=== PATIENT | male | born 1940 | race Caucasian/White ===

== ENCOUNTER 2020-09-28 23:37 | Inpatient (IN) | payer MEDICARE ==
[2020-09-29] MEDS ORDERED: NITROGLYCERIN SL TABS 0.4 MG TAB SUBLINGUAL PRN ×2 (00:01→09:39)
[2020-09-29] MEDS ORDERED: MORPHINE SULFATE 4 MG/ML SYRINGE IV PRN (00:01)
--- NOTE | 2020-09-29 00:12 | ED ---
Chest Pain HPI - General Chief Complaint: Chest Pain Stated Complaint: Chest Pain Time Seen by Provider: 09/28/20 23:43 Source: patient, EMS Mode of arrival: EMS - History of Present Illness Initial Comments: This patient is a 79-year-old man with history of previous ID as well as CABG (14 years ago), who arrives here as a transfer from [facility]. He had gone there tonight approximately 7:30 PM after he had 20-30 minutes of chest pain that came on while he was mowing his lawn. The patient also had diaphoresis and dyspnea. The patient had cardiac workup there that did reveal troponin of 0.142. The patient was started on heparin and transferred here. There was also question of whether they were seeing a pneumonia chest x-ray and patient did receive dose of Rocephin for that. Patient denies cough. Onset of symptoms. No fever or chills noted. MD Complaint: chest pain Onset/Timin -: minutes(s) Onset: during exertion Pain Location: left chest Severity: moderate Quality: aching Consistency: intermittent, now resolved Improves With: nitroglycerin, rest Worsens With: exertion Anginal Symptoms: diaphoresis, dyspnea Treatments Prior to Arrival: aspirin, nitroglycerin, oxygen, other - Related Data Home Medications Medication Instructions Recorded Confirmed Enalapril Maleate 2.5 mg PO DAILY 01/04/14 09/29/20 atenoloL [Atenolol] 25 mg PO DAILY 01/04/14 09/29/20 Folic Acid 0.8 mg PO DAILY 09/29/20 09/29/20 Furosemide [Lasix] 10 mg PO DAILY 09/29/20 09/29/20 HYDROcodone/APAP 5-325MG [[place] 1 tab PO BID PRN 09/29/20 09/29/20 5-325] Latanoprost/Pf [Latanoprost 0.005% 1 drop BOTH EYES HS 09/29/20 09/29/20 Eye Drop] Multivitamins, Thera [Multivitamin 1 tab PO DAILY 09/29/20 09/29/20 (formulary)] Pregabalin [Lyrica] 50 mg PO DAILY PRN 09/29/20 09/29/20 Previous Rx's Medication Instructions Recorded Phenytoin Sodium Extended 100 mg PO TID #90 cap 01/07/14 [Dilantin] Thiamine [Vitamin B-1] 100 mg PO DAILY@1200 #30 tablet 01/07/14 Aspirin 81 mg PO DAILY chew 09/30/20 Atorvastatin [Lipitor] 80 mg PO HS 30 Days #30 tab 10/01/20 Clopidogrel [Plavix] 75 mg PO DAILY 90 Days #90 tab 10/01/20 Nitroglycerin Sl Tabs [Nitrostat] 0.4 mg SUBLINGUAL Q5M PRN #30 tab 10/01/20 Allergies Allergy/AdvReac Type Severity Reaction Status Date / Time Penicillins Allergy Rash/Hives Verified 09/29/20 06:45 red dye Allergy Anaphylaxis Verified 09/29/20 06:45 shellfish derived Allergy Anaphylaxis Verified 09/29/20 06:45 Review of Systems ROS Statement: Those systems with pertinent positive or pertinent negative responses have been documented in the HPI. ROS Other: All systems not noted in ROS Statement are negative. Constitutional: Denies: fever, chills Respiratory: Reports: dyspnea. Denies: cough, wheezes, hemoptysis Cardiovascular: Reports: chest pain. Denies: palpitations, orthopnea, edema, syncope Gastrointestinal: Reports: nausea. Denies: abdominal pain, vomiting, diarrhea Genitourinary: Denies: dysuria, hematuria Musculoskeletal: Denies: back pain Skin: Denies: rash Neurological: Denies: headache, weakness, numbness EKG Findings - EKG Comments: EKG Findings:: Possible old lateral infarct. Possible old inferior infarct. 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 Absent: scleral icterus, conjunctival injection Neck exam: Present: normal inspection Respiratory exam: Present: normal lung sounds bilaterally. Absent: respiratory distress, wheezes, rales, rhonchi, stridor Cardiovascular Exam: Present: regular rate, normal rhythm, normal heart sounds. Absent: systolic murmur, diastolic murmur, rubs, gallop GI/Abdominal exam: Present: soft. Absent: distended, tenderness, guarding, rebound, rigid, mass Extremities exam: Present: normal inspection, normal capillary refill. Absent: pedal edema, calf tenderness Back exam: Present: normal inspection. Absent: CVA tenderness (R), CVA tenderness (L) Neurological exam: Present: alert Skin exam: Present: warm, dry, intact, normal color. Absent: rash Course Vital Signs 09/28/20 09/28/20 09/29/20 23:38 23:49 01:08 Temperature 97.9 F Pulse Rate 75 75 Pulse Rate [ 68 [employer] [facility] [employer] ] Respiratory 18 19 Rate Blood Pressure 136/82 109/72 Blood Pressure [Left Arm Supine] O2 Sat by Pulse 98 96 Oximetry 09/29/20 09/29/20 09/29/20 06:32 07:42 11:30 Temperature 97.6 F Pulse Rate 76 73 Pulse Rate [ 72 [facility] [employer] ] Respiratory 16 18 16 Rate Blood Pressure 131/66 140/80 Blood Pressure 143/77 [Left Arm Supine] O2 Sat by Pulse 98 97 95 Oximetry Critical Care Time Critical Care Time: Yes (30 minutes) Disposition Clinical Impression: Acute coronary syndrome Disposition: ADMITTED IP TO THIS [facility] Condition: Stable Is patient prescribed a controlled substance at d/c from ED?: No
[2020-09-29] MEDS: HEPARIN SOD,PORK IN 0.45% NACL 25,000 UNIT in 0.45% NACL 1 250ML.BAG IV SCH ×2 (00:58→22:04)
[2020-09-29] MEDS: SODIUM CHLORIDE 0.9% 1,000 ML IV SCH ×2 (02:01→13:15)
[2020-09-29] MEDS ORDERED: MAG HYDROX/AL HYDROX/SIMETH 30 ML, HYOSCYAMINE ELIXIR 10 ML, LIDOCAINE VISCOUS 2% 10 ML PO ONE ×3 (02:05)
[2020-09-29] MEDS ORDERED: HEPARIN SODIUM,PORCINE 2,500 UNIT in SODIUM CHLORIDE 0.9% 250 ML IRRIGATION PRN (07:00)
[2020-09-29] MEDS ORDERED: HEPARIN SODIUM,PORCINE 10,000 UNIT in SODIUM CHLORIDE 0.9% 1,000 ML IRRIGATION PRN (07:00)
[2020-09-29] MEDS: atenoloL 25 MG TAB PO SCH ×2 (07:35→13:35)
[2020-09-29] MEDS: lisinopriL 5 MG TAB PO SCH ×2 (07:35→13:35)
[2020-09-29 08:28] LABS: Basophils # (A) 0.1 k/uL (0-0.2); Basophils % (A) 1 %; Eosinophils # (A) 0.3 k/uL (0-0.7); Eosinophils % (A) 3 %; HCT 37.8 % (39.0-53.0); HGB 12.9 gm/dL (13.0-17.5); Lymphocytes # (A) 2.4 k/uL (1.0-4.8); Lymphocytes % (A) 20 %; MCH 29.9 pg (25.0-35.0); MCHC 34.2 g/dL (31.0-37.0); MCV 87.4 fL (80.0-100.0); Mean Platelet Volume 8.2; Monocytes # (A) 0.9 k/uL (0-1.0); Monocytes % (A) 7 %; Neutrophils # (A) 8.1 k/uL (1.3-7.7); Neutrophils % (A) 68 %; Platelet Count 309 k/uL (150-450); RBC 4.33 m/uL (4.30-5.90); WBC 11.9 k/uL (3.8-10.6)
[2020-09-29] MEDS: ASPIRIN 81 MG PO SCH (08:41)
[2020-09-29] MEDS: PHENYTOIN SODIUM EXTENDED 100 MG CAP PO SCH ×3 (08:43→21:13)
[2020-09-29] MEDS ORDERED: ASPIRIN 325 MG TAB PO SCH (09:00)
[2020-09-29 09:22] LABS: African American GFR (CKD) >90 (>60 ml/min/1.73 sqM); Anion Gap 6 mmol/L; Blood Urea Nitrogen 19 mg/dL (9-20); Calcium 8.9 mg/dL (8.4-10.2); Carbon Dioxide 24 mmol/L (22-30); Chloride 106 mmol/L (98-107); Glucose 118 mg/dL (74-99); Non-African American GFR(CKD) >90 (>60 ml/min/1.73 sqM); Potassium 4.5 mmol/L (3.5-5.1); Sodium 136 mmol/L (137-145)
[2020-09-29] MEDS ORDERED: ALPRAZolam 0.25 MG TAB PO PRN (09:39)
[2020-09-29] MEDS ORDERED: ASPIRIN 325 MG TAB PO STA (09:39)
[2020-09-29] MEDS ORDERED: ALPRAZolam 0.5 MG TAB PO PRN (09:39)
[2020-09-29] MEDS ORDERED: SODIUM CHLORIDE 0.9% 1,000 ML in EMPTY BAG 1 BAG IV ONE (09:39)
[2020-09-29] MEDS ORDERED: ATORVASTATIN 80 MG TAB PO STA (09:39)
[2020-09-29] MEDS ORDERED: LIDOCAINE 1% INJ 10MG/ML (20 ML MDV) ONE (09:57)
[2020-09-29] MEDS ORDERED: fentaNYL (PF) 50 MCG/ML 2 ML AMP ONE (09:57)
[2020-09-29] MEDS ORDERED: methylPREDNISolone SOD SUCCI 125 MG/2 ML VIAL ONE (10:01)
[2020-09-29] MEDS ORDERED: diphenhydrAMINE 50 MG/ML 1 ML VIAL ONE (10:01)
[2020-09-29] MEDS ORDERED: diphenhydrAMINE 50 MG/ML 1 ML VIAL IVP ONE (10:04)
[2020-09-29] MEDS: fentaNYL (PF) 50 MCG/ML 2 ML AMP IV ONE ×2 (10:05→10:43)
[2020-09-29] MEDS ORDERED: IV FLUID CONTINUATION 200 ML IV ONE (10:05)
[2020-09-29] MEDS ORDERED: methylPREDNISolone SOD SUCCI 125 MG/2 ML VIAL IV ONE (10:05)
[2020-09-29] MEDS ORDERED: LIDOCAINE 1% INJ 10MG/ML (20 ML MDV) SQ ONE (10:18)
[2020-09-29] MEDS: MIDAZOLAM 2 MG/2 ML VIAL IV ONE ×2 (10:21→10:43)
[2020-09-29] MEDS ORDERED: IOPAMIDOL-370 125ML BTL INJ ONE ×2 (10:42→11:07)
[2020-09-29] MEDS ORDERED: HEPARIN SODIUM 1,000 UN/ML (10ML VL) ONE (10:48)
[2020-09-29] MEDS ORDERED: niCARdipine 25 MG/10 ML VIAL ONE (10:48)
[2020-09-29] MEDS ORDERED: BIVALIRUDIN BOLUS 250 MG/50 ML IV ONE (10:50)
[2020-09-29] MEDS ORDERED: SODIUM CHLORIDE 0.9% IV ONE (10:59)
[2020-09-29] MEDS ORDERED: BIVALIRUDIN IV ONE (10:59)
[2020-09-29] MEDS ORDERED: CLOPIDOGREL 75 MG TAB PO ONE (11:07)
[2020-09-29] MEDS ORDERED: CLOPIDOGREL 75 MG TAB ONE (11:08)
[2020-09-29] MEDS ORDERED: PREGABALIN 50 MG CAP PO PRN (11:10)
[2020-09-29] MEDS ORDERED: HYDROcodone/APAP 5-325MG 1 EACH TAB PO PRN (11:10)
[2020-09-29] MEDS ORDERED: SODIUM CHLORIDE 0.9% 1,000 ML IV SCH (11:30)
--- NOTE | 2020-09-29 12:42 | P.CRDCN ---
History of Present Illness Consult date: 09/29/20 History of present illness: HISTORY OF PRESENT ILLNESS: This is a 79-year-old male with a past medical history significant for coronary artery disease with previous CABG x 3 (approximately 15 years ago), hypertension, and hyperlipidemia. Patient follows in the office with Dr. Dumont. We have been asked to see the patient in consultation for chest pain. Patient examined at the bedside. Patient states he was mowing the grass yesterday when he began having chest discomfort. He describes the pain as a burning sensation in the middle of his chest. He denies any radiation of the pain. He does report feeling short of breath with the pain. He reports feeling nauseated and having diaphoresis. Patient states he took some Tylenol for the discomfort. He states the pain was not going away so he presented to the hospital for further evaluation. At the time of examination, the patient denies chest pain. He does state he gets chest pain this morning with any exertion. EKG reveals sinus mechanism with no signs of acute ischemia Laboratory data: Troponin 0.142. 0.493. 0.609 Current home cardiac medications include Lasix 10 mg daily, atenolol 25 mg daily, enalapril 2.5 mg daily, simvastatin 40 mg daily Most recent echocardiogram obtained in 2020 revealed ejection fraction 45% Patient underwent Lexiscan stress test in 2019 which was negative for ischemia REVIEW OF SYSTEMS: At the time of my exam: CONSTITUTIONAL: Denies fever or chills. HEENT: Denies blurred vision, vision changes, or eye pain. Denies hemoptysis CARDIOVASCULAR: Denies chest pain. Denies orthopnea. Denies PND. Denies palpitations RESPIRATORY: Denies shortness of breath. GASTROINTESTINAL: Denies abdominal pain. Denies nausea or vomiting. HEMATOLOGIC: Denies bleeding disorders. GENITOURINARY: Denies any blood in urine. SKIN: Denies pruitis. Denies rash. PHYSICAL EXAM: VITAL SIGNS: Reviewed. GENERAL: Well-developed in no acute distress. HEENT: Head is normocephalic. Pupils are equal, round. Sclerae anicteric. Mucous membranes of the mouth are moist. Neck supple. No JVD or thyromegaly LUNGS: Respirations even and unlabored. Lungs essentially clear to auscultation bilaterally. HEART: Regular rate and rhythm. S1 and S2 heard. ABDOMEN: Soft. Nondistended. Nontender. EXTREMITIES: Normal range of motion. No clubbing or cyanosis. Peripheral pulses intact. Trace bilateral lower extremity edema NEUROLOGIC: Awake and alert. Oriented x 3. ASSESSMENT: Non-STEMI Coronary artery disease with previous CABG 3, 15 years ago Hypertension Hyperlipidemia PLAN: Obtain 2D echo to assess cardiac structure and function Resume home cardiac medications Continue IV heparin Obtain lipid panel NPO Patient to undergo cardiac cath today with Dr. Dumont Further recommendations pending patient course Nurse practitioner note has been reviewed by physician. Signing provider agrees with the documented findings, assessment, and plan of care. 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, etc) History of Any Multi-Drug Resistant Organisms: None Reported Past Surgical History: Back Surgery, Cholecystectomy, Coronary Bypass/CABG, Tonsillectomy Additional Past Surgical History / Comment(s): hernia repair, Past Anesthesia/Blood Transfusion Reactions: No Reported Reaction Past Psychological History: No Psychological Hx Reported Past Alcohol Use History: None Reported Past Drug Use History: None Reported Medications and Allergies Home Medications Medication Instructions Recorded Confirmed Type Enalapril Maleate 2.5 mg PO DAILY 01/04/14 09/29/20 History Simvastatin 40 mg PO HS 01/04/14 09/29/20 History atenoloL [Atenolol] 25 mg PO DAILY 01/04/14 09/29/20 History Phenytoin Sodium Extended 100 mg PO TID #90 cap 01/07/14 09/29/20 Rx [Dilantin] Thiamine [Vitamin B-1] 100 mg PO DAILY@1200 #30 tablet 01/07/14 09/29/20 Rx Folic Acid 0.8 mg PO DAILY 09/29/20 09/29/20 History Furosemide [Lasix] 10 mg PO DAILY 09/29/20 09/29/20 History HYDROcodone/APAP 5-325MG [[place] 1 tab PO BID PRN 09/29/20 09/29/20 History 5-325] Latanoprost/Pf [Latanoprost 0.005% 1 drop BOTH EYES HS 09/29/20 09/29/20 History Eye Drop] Multivitamins, Thera [Multivitamin 1 tab PO DAILY 09/29/20 09/29/20 History (formulary)] Pregabalin [Lyrica] 50 mg PO DAILY PRN 09/29/20 09/29/20 History Allergies Allergy/AdvReac Type Severity Reaction Status Date / Time Penicillins Allergy Rash/Hives Verified 09/29/20 06:45 red dye Allergy Anaphylaxis Verified 09/29/20 06:45 shellfish derived Allergy Anaphylaxis Verified 09/29/20 06:45 Physical Exam Vitals: Vital Signs Temp Pulse Pulse Resp BP Pulse Ox 09/29/20 07:42 73 18 140/80 97 09/29/20 06:32 76 16 131/66 98 09/29/20 01:08 75 19 109/72 96 09/28/20 23:49 68 09/28/20 23:38 97.9 F 75 18 136/82 98 Intake and Output 09/28/20 09/29/20 09/29/20 22:59 06:59 14:59 Other: Weight 112.491 kg Results Cardiac Enzymes 09/29/20 09/29/20 Range/Units 00:26 02:50 Troponin I 0.493 H* 0.609 H* (0.000-0.034) ng/mL Current Medications Generic Name Dose Route Start Last Admin Trade Name Freq PRN Reason Stop Dose Admin Aspirin 325 mg 09/29/20 09:00 09/29/20 07:35 Aspirin 325 Mg Tab PO 325 mg DAILY [facility] Administration Atenolol 25 mg 09/29/20 09:00 Atenolol 25 Mg Tab PO DAILY [facility] Atorvastatin Calcium 20 mg 09/29/20 21:00 Atorvastatin 20 Mg Tab PO HS [facility] Folic Acid 1 mg 09/29/20 12:00 Folic Acid 1 Mg Tab PO DAILY@1200 [facility] Sodium Chloride 1,000 mls @ 100 mls/hr 09/29/20 00:15 09/29/20 02:01 Saline 0.9% IV 100 mls/hr .Q10H [facility] Administration Heparin Sodium/Sodium Chloride 250 mls @ 10 mls/hr 09/29/20 00:15 09/29/20 00:58 25,000 unit/ Sodium Chloride IV 8.8896 units/kg/hr .Q24H LYUBOV 10 mls/hr Administration Protocol 8.8896 UNITS/KG/HR Lisinopril 5 mg 09/29/20 09:00 Lisinopril 5 Mg Tab PO DAILY [facility] Morphine Sulfate 4 mg 09/29/20 00:01 Morphine Sulfate 4 Mg/Ml Syringe IV Q5M PRN Chest Pain Nitroglycerin 0.4 mg 09/29/20 00:01 Nitroglycerin Sl Tabs 0.4 Mg Tab SUBLINGUAL Q5M PRN Chest Pain Phenytoin Sodium 100 mg 09/29/20 09:00 Phenytoin Sodium Extended 100 Mg Cap PO TID [facility] Thiamine HCl 100 mg 09/29/20 12:00 Thiamine 100 Mg Tab PO DAILY@1200 [facility] Intake and Output 09/28/20 09/29/20 09/29/20 22:59 06:59 14:59 Other: Weight 112.491 kg
[2020-09-29] MEDS: ATORVASTATIN 80 MG TAB PO SCH (13:17)
[2020-09-29] MEDS: THIAMINE 100 MG TAB PO SCH (13:35)
[2020-09-29] MEDS: MULTIVITAMINS, THERA 1 EACH TAB PO SCH (13:35)
[2020-09-29] MEDS: FOLIC ACID 1 MG TAB PO SCH ×2 (13:35→13:36)
--- NOTE | 2020-09-29 14:41 | PTCA ---
PERCUTANEOUSTRANS CORORONARY ANGIOGRAPHY DATE OF PROCEDURE: 09/29/2020 PERFORMING PHYSICIAN: Arcadio Camejo MD. PROCEDURE PERFORMED: Successful stenting of the SVG to diag using 2.75 x 15 mm Xience GISSELL with an excellent angiographic result. INDICATION: This is a 79-year-old gentleman who sees Dr. Dumont in the office, who is known to have CAD and prior coronary artery bypass grafting who presented to the hospital with chest discomfort and ruled in for acute coronary syndrome. He underwent a heart catheterization by Dr. Dumont and was found to have a thrombotic lesion involving the graft to the diagonal. Because of that, PCI was advised. APPROACH: Right common femoral artery. COMPLICATION: None. LEVEL OF SEDATION: Moderate with sedation of 15 minutes. PROCEDURE DESCRIPTION: Please refer to the diagnostic heart catheterization that was performed earlier today. Anticoagulation was achieved with Angiomax with bolus and drip per protocol. Subsequently, I did engage the graft using an LCB guide. I did wire it using a Whisper wire and I did direct stenting after that using 2.75 x 15 mm Xience drug-eluting stent, where the stent was positioned under fluoroscopic guidance and deployed under 14 atmospheres for 20 seconds with the following angiogram showing excellent angiographic results. POSTPROCEDURE MANAGEMENT: 1. Dual anti-platelet therapy. 2. Risk factor modifications, follow up with the patient. MMODL / IJN: [id number] /
--- NOTE | 2020-09-29 15:17 | CC ---
CARDIAC CATHETERIZATION REPORT INDICATION: Acute non ST-segment elevation [place] in a patient with known coronary artery disease status post CABG with ASHBY to LAD, radial artery graft to OM, venous graft to diagonal and venous graft to PDA. PROCEDURE NOTE: After obtaining informed consent, left heart catheterization, coronary angiogram and selective injection of the bypass grafts has been performed via the right femoral artery using standard Ubaldo catheters. Patient tolerated the procedure well without any obvious immediate complications. A femoral angiogram was performed and Angio-Seal will be deployed for hemostasis. Patient received moderate conscious sedation. Total sedation time was 27 minutes. FINDINGS: HEMODYNAMICS: Left ventricular end-diastolic pressure is 16 mm. There is no significant gradient across the aortic valve. LEFT VENTRICULOGRAM: Not performed. ANGIOGRAPHIC DATA: [place] CORONARY ARTERIES: 1. Left main coronary artery has a 99% stenosis. 2. Both the LAD and circumflex coronary artery are proximally occluded. 3. Right coronary artery is a large dominant vessel that divides into PDA and PLV branches. The PDA is occluded. The proximal part of the right coronary artery shows a focal 80-90 percent stenosis. SELECTIVE INJECTION OF THE BYPASS GRAFTS: 1. ASHBY to LAD: ASHBY to LAD appears patent. Proximal and distal anastomotic sites are free of disease and the body of the graft is free of significant disease. 2. [place] LAD has a focal area of stenosis that is 70%, but it is very distal. 3. Venous graft to the PDA appears patent. Proximal and distal anastomotic sites are free of significant disease and the and[place] coronary artery is free of significant stenosis. 4. Radial artery graft to the OM branch appears patent. 5. Proximal and distal anastomotic sites are free of disease. Body of the graft is free of disease. [place] circumflex coronary artery has a focal area of stenosis of 70%. Venous graft to the diagonal branch is visualized. There is a focal area of stenosis in the midportion with an 80% to 90% stenosis. There is a focal area of stenosis in the midportion of the graft. The andreafski diagonal branch is free of significant disease. CONCLUSIONS: 1. Severe three-vessel coronary artery disease as described above with left main stenosis. 2. Patent ASHBY to LAD. 3. Patent radial artery graft to OM and patent venous graft to the right coronary artery. 4. Venous graft to the diagonal branch is patent but has a focal area of stenosis in its midportion with an area of plaque rupture. PLAN: The patient's angiographic data was reviewed by Dr. Camejo, the on-call whip operator who will proceed with angioplasty of the venous graft to the diagonal. MMDANIEL / IJN: [id number] /
[2020-09-29 16:14] LABS: ALT 31 U/L (4-49); AST 45 U/L (17-59); African American GFR (CKD) >90 (>60 ml/min/1.73 sqM); Albumin 3.9 g/dL (3.5-5.0); Alkaline Phosphatase 104 U/L (38-126); Anion Gap 11 mmol/L; Blood Urea Nitrogen 17 mg/dL (9-20); Carbon Dioxide 21 mmol/L (22-30); Chloride 103 mmol/L (98-107); Glucose 165 mg/dL (74-99); Magnesium 1.8 mg/dL (1.6-2.3); Non-African American GFR(CKD) >90 (>60 ml/min/1.73 sqM); Sodium 135 mmol/L (137-145); Total Bilirubin 0.4 mg/dL (0.2-1.3); Total Protein 6.8 g/dL (6.3-8.2)
--- NOTE | 2020-09-29 18:11 | XR ---
EXAMINATION TYPE: XR chest 2V DATE OF EXAM: 09/29/2020 COMPARISON: 09/28/2020. HISTORY: Chest pain. TECHNIQUE: Frontal and lateral views of the chest are obtained. FINDINGS: There is lucency under the right hemidiaphragm and appears to correspond to colonic loops on the lateral view. There is no focal air space opacity, pleural effusion, or pneumothorax seen. Th e cardiac silhouette size is mildly enlarged. Median sternotomy seen. The osseous structures are in tact. IMPRESSION: Lucency under the right hemidiaphragm, appears to correspond to colonic loops. If there is continued clinical concern for pneumoperitoneum, recommend CT for further evaluation. Otherwise no acute cardiopulmonary abnormality.
--- NOTE | 2020-09-29 20:28 | P.HPIM ---
History of Present Illness H&P Date: 09/29/20 Chief Complaint: Chest pain History of presenting complaint: This is a pleasant 79-year-old patient was transferred here from [facility]. Patient yesterday developed some left-sided chest pain. Associated with shortness of breath dizziness perspiration. Also had some edema. Pain was worse with activity and better with rest. Patient has known prior history of co ronary bypass. Patient not a very good historian. Patient earlier had good undergone a cardiac catheterization. Found to have severe triple-vessel disease. Left main stenosis. Venous graft to the diagonal branch and a focal area of stenosis in its midportion with an area of plaque rupture. Patient underwent successful stenting of the same. Postprocedure laying in bed comfortable. Patient had ruled in for an acute non-Q wave DC. Review of systems: GEN.: Tired EYES: None HEENT: None NECK: None RESPIRATORY: As above CARDIOVASCULAR: As above GASTROINTESTINAL: None GENITOURINARY: None MUSCULOSKELETAL: Joint pains LYMPHATICS: None HEMATOLOGICAL: None PSYCHIATRY: Bit forgetful NEUROLOGICAL: Does use a cane Past medical history to include: GERD, hypertension, hyperlipidemia, osteoporosis, shingles, coronary bypass Social history: Lives alone. Does use a cane. Did smoke in the past. No alcohol. Physical examination: VITAL SIGNS: 97.9, 75, 18, 1 3682, 98% room air GENERAL: BMI 37.7, laying in bed, awake a bit tired. EYES: Pupils equal. Conjunctiva normal. HEENT: External appearance of nose and ears normal, oral cavity grossly normal. NECK: JVD not raised; masses not palpable. HEART: First and second heart sounds are normal; no edema. LUNGS: Respiratory rate normal; decreased breath sounds. ABDOMEN: Soft, nontender, liver spleen not palpable, no masses palpable. PSYCH: Patient able tonsil simple questionsl. MUSCULAR skeletal: Evidence of OA NEUROLOGICAL: Cranial nerves grossly intact; no facial asymmetry, power and sensation grossly intact. LYMPHATICS: No lymph nodes palpable in the axilla and neck INVESTIGATIONS, reviewed in the clinical context: WBC 11.9 hemoglobin 12.9 platelets 309 potassium 4.5 creatinine 0.69 Troponin I 0.493, 0.60 EKG tracing personally reviewed by me-normal sinus rhythm, nonspecific changes Chest x-ray film personally reviewed by me-no obvious infiltrate. Some bowel loops Assessment and plan: -Acute non-Q wave myocardial infarction Aspirin, Tenormin, Lipitor, Plavix, IV heparin, Zestril -Cardiac catheterization with successful angioplasty stenting to venous graft to the diagonal branch -Coronary artery disease with prior history of bypass Aspirin, Tenormin, Lipitor, Plavix IV heparin Zestril -IV heparin monitoring Follow PTT -Essential hypertension Tenormin, Zestril -Hyperlipidemia Lipitor -Continue current medication treatment plan. Follow with cardiology. Care was discussed with the patient. 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, etc) History of Any Multi-Drug Resistant Organisms: None Reported Past Surgical History: Back Surgery, Cholecystectomy, Coronary Bypass/CABG, Tonsillectomy Additional Past Surgical History / Comment(s): hernia repair, Past Anesthesia/Blood Transfusion Reactions: No Reported Reaction Past Psychological History: No Psychological Hx Reported Past Alcohol Use History: None Reported Past Drug Use History: None Reported Medications and Allergies Home Medications Medication Instructions Recorded Confirmed Type Enalapril Maleate 2.5 mg PO DAILY 01/04/14 09/29/20 History Simvastatin 40 mg PO HS 01/04/14 09/29/20 History atenoloL [Atenolol] 25 mg PO DAILY 01/04/14 09/29/20 History Phenytoin Sodium Extended 100 mg PO TID #90 cap 01/07/14 09/29/20 Rx [Dilantin] Thiamine [Vitamin B-1] 100 mg PO DAILY@1200 #30 tablet 01/07/14 09/29/20 Rx Folic Acid 0.8 mg PO DAILY 09/29/20 09/29/20 History Furosemide [Lasix] 10 mg PO DAILY 09/29/20 09/29/20 History HYDROcodone/APAP 5-325MG [[place] 1 tab PO BID PRN 09/29/20 09/29/20 History 5-325] Latanoprost/Pf [Latanoprost 0.005% 1 drop BOTH EYES HS 09/29/20 09/29/20 History Eye Drop] Multivitamins, Thera [Multivitamin 1 tab PO DAILY 09/29/20 09/29/20 History (formulary)] Pregabalin [Lyrica] 50 mg PO DAILY PRN 09/29/20 09/29/20 History Allergies Allergy/AdvReac Type Severity Reaction Status Date / Time Penicillins Allergy Rash/Hives Verified 09/29/20 06:45 red dye Allergy Anaphylaxis Verified 09/29/20 06:45 shellfish derived Allergy Anaphylaxis Verified 09/29/20 06:45 Physical Exam Vitals: Vital Signs Temp Pulse Pulse Resp BP Pulse Ox 09/29/20 07:42 73 18 140/80 97 09/29/20 06:32 76 16 131/66 98 09/29/20 01:08 75 19 109/72 96 09/28/20 23:49 68 09/28/20 23:38 97.9 F 75 18 136/82 98 Intake and Output 09/28/20 09/29/20 09/29/20 22:59 06:59 14:59 Intake Total 100 Balance 100 Intake: IV 100 Other: Weight 112.491 kg Results CBC & Chem 7: 09/29/20 07:42 09/29/20 15:36 Labs: Abnormal Lab Results - Last 24 Hours (Table) 09/29/20 09/29/20 09/29/20 Range/Units 00:26 02:50 07:42 WBC (3.8-10.6) k/uL Hgb (13.0-17.5) gm/dL Hct (39.0-53.0) % Neutrophils # (1.3-7.7) k/uL APTT 42.0 H (22.0-30.0) sec Sodium (137-145) mmol/L Glucose (74-99) mg/dL Troponin I 0.493 H* 0.609 H* (0.000-0.034) ng/mL 09/29/20 09/29/20 Range/Units 07:42 07:42 WBC 11.9 H (3.8-10.6) k/uL Hgb 12.9 L (13.0-17.5) gm/dL Hct 37.8 L (39.0-53.0) % Neutrophils # 8.1 H (1.3-7.7) k/uL APTT (22.0-30.0) sec Sodium 136 L (137-145) mmol/L Glucose 118 H (74-99) mg/dL Troponin I (0.000-0.034) ng/mL
[2020-09-29] MEDS ORDERED: ATORVASTATIN 20 MG TAB PO SCH (21:00)
[2020-09-29] MEDS: LATANOPROST 0.005% OPHTH DROPS 2.5 ML BTL BOTH EYES SCH (21:13)
[2020-09-30] MEDS ORDERED: ASPIRIN 325 MG TAB PO SCH (09:00)
[2020-09-30] MEDS: ASPIRIN 81 MG PO SCH (09:32)
[2020-09-30] MEDS: atenoloL 25 MG TAB PO SCH (09:33)
[2020-09-30] MEDS: CLOPIDOGREL 75 MG TAB PO SCH (09:33)
[2020-09-30] MEDS: MULTIVITAMINS, THERA 1 EACH TAB PO SCH (09:33)
[2020-09-30] MEDS: PHENYTOIN SODIUM EXTENDED 100 MG CAP PO SCH ×3 (09:33→21:20)
[2020-09-30] MEDS: lisinopriL 5 MG TAB PO SCH (09:33)
[2020-09-30] MEDS: FOLIC ACID 1 MG TAB PO SCH ×2 (09:36→11:47)
[2020-09-30] MEDS: THIAMINE 100 MG TAB PO SCH (11:50)
--- NOTE | 2020-09-30 12:45 | P.PN ---
Subjective This is a 79-year-old male with a past medical history significant for coronary artery disease with previous CABG x 3 (approximately 15 years ago), h ypertension, and hyperlipidemia. Patient follows in the office with Dr. Dumont. We have been asked to see the patient in consultation for chest pain on 09/29/20. EKG reveals sinus mechanism with no signs of acute ischemia. Laboratory data: Troponin 0.142. 0.493. 0.609. Cardiac catheterization was recommended. Most recent echocardiogram obtained in 2019 revealed ejection fraction 45%. 09/29/20: Patient underwent cardiac catheterization with Dr. Dumont. Which revealed severe three-vessel coronary artery disease, left main coronary artery has a 99% stenosis, hypothyroidism and circumflex coronary artery approximately occluded. The proximal RCA shows a focal 80-90% stenosis. Patent ASHBY to LAD. Patent radial artery graft to OM and patent venous graft to the right coronary artery. Saphenous graft to diagonal branch is patent but has a focal area of stenosis of the mid portion with primary plaque rupture. Patient underwent successful stenting of the SVG to diagonal with Dr. Camejo. 09/30/2020: Patient seen and examined at bedside, sitting up in the bedside chair. Denies chest pain, shortness of breath, lightheadedness, dizziness. Blood pressure 114/59, heart rate 74, afebrile, maintaining oxygen saturations on room air. He is maintaining sinus mechanism heart rate 70s to 80s. He is currently maintained on aspirin 81 mg daily, atenolol 25 mg daily, atorvastatin 80 mg nightly, Plavix 75 mg daily, lisinopril 5 mg daily. Laboratory data reviewed sodium 135, potassium 4.0, BUN is 17, serum creatinine 0.6, magnesium 1.8 PHYSICAL EXAM: VITAL SIGNS: Reviewed. GENERAL: Well-developed in no acute distress. HEENT: Mucous membranes of the mouth are moist. Neck supple. No JVD LUNGS: Respirations even and unlabored. Lungs essentially clear to auscultation bilaterally. HEART: Regular rate and rhythm. S1 and S2 heard. ABDOMEN: Soft. Nondistended. Nontender. EXTREMITIES: Normal range of motion. No clubbing or cyanosis. Peripheral pulses intact. Trace bilateral lower extremity edema SKIN: Right femoral cath site, clean dry intact, no hematoma. NEUROLOGIC: Awake and alert. Oriented x 3. ASSESSMENT: Non-STEMI s/p PCI SVG to diagonal on 09/29/20 Coronary artery disease with previous CABG 3, 15 years ago Hypertension Hyperlipidemia PLAN: 2D echo completed- follow up on read Continue dual antiplatelet therapy with aspirin and Plavix Continue patient's home medication atorvastatin 80 mg nightly, lisinopril 5 mg daily, atenolol 25 mg daily Further recommendations based on clinical course Nurse practitioner note has been reviewed by physician. Signing provider agrees with the documented findings, assessment, and plan of care. Objective - Vital Signs Vital signs: Vital Signs Temp 98.1 F 09/30/20 03:52 Pulse 84 09/30/20 03:52 Resp 18 09/30/20 03:52 BP 149/76 09/30/20 03:52 Pulse Ox 96 09/30/20 03:52 Intake & Output 09/29/20 09/30/20 09/30/20 18:59 06:59 18:59 Intake Total 110 180 Output Total 300 625 Balance -190 -625 180 Weight 112.491 kg 108.6 kg Intake: IV 110 Oral 180 Output: Urine 300 625 Other: Voiding Method Urinal Urinal # Voids 2 # Bowel Movements 1 1 - Labs CBC & Chem 7: 09/29/20 07:42 09/29/20 15:36 Labs: Abnormal Lab Results - Last 24 Hours (Table) 09/29/20 09/29/20 Range/Units 07:42 15:36 Sodium 136 L 135 L (137-145) mmol/L Carbon Dioxide 21 L (22-30) mmol/L Creatinine 0.62 L (0.66-1.25) mg/dL Glucose 118 H 165 H (74-99) mg/dL
[2020-09-30 15:43] LABS: Chol/HDL Ratio 2.79; LDL Cholesterol,Calculated 82.2 mg/dL (0.0-131.0); VLDL Calculation 21.8 mg/dL (5.00-40.00)
--- NOTE | 2020-09-30 19:42 | P.PN ---
Progress Note - Text Progress Note Date: 09/30/20 Chief Complaint: Chest pain History of presenting complaint: This is a pleasant 79-year-old patient was transferred here from [facility]. Patient yesterday developed some left-sided chest pain. Associated with shortness of breath dizziness perspiration. Also had some edema. Pain was worse with activity and better with rest. Patient has known prior history of coronary bypass. Patient not a very good historian. Patient earlier had good undergone a cardiac catheterization. Found to have severe triple-vessel disease. Left main stenosis. Venous graft to the diagonal branch and a focal area of stenosis in its midportion with an area of plaque rupture. successful stenting of the same. ruled in for an acute non-Q wave [place]. September 30: Feeling better. No chest pain no shortness of breath. Sitting up eating. Did walk a little bit. Telemetry: Sinus rhythm. 2-D echocardiogram results pending Review of systems: Was done for constitutional, cardiovascular, GI, pulmonary. relevant finding as above Active Medications Hydrocodone Bitart/Acetaminophen (Hydrocodone/Apap 5-325mg 1 Each Tab) 1 each PO BID PRN PRN Reason: Pain Last Admin: 09/29/20 13:36 Dose: 1 each Documented by: Alprazolam (Alprazolam 0.25 Mg Tab) 0.25 mg PO Q6HR PRN PRN Reason: Mild Anxiety Aspirin (Aspirin 81 Mg) 81 mg PO DAILY [facility] Last Admin: 09/30/20 09:32 Dose: 81 mg Documented by: Atenolol (Atenolol 25 Mg Tab) 25 mg PO DAILY [facility] Last Admin: 09/30/20 09:33 Dose: 25 mg Documented by: Atorvastatin Calcium (Atorvastatin 80 Mg Tab) 80 mg PO HS [facility] Last Admin: 09/29/20 13:17 Dose: Not Given Documented by: Clopidogrel Bisulfate (Clopidogrel 75 Mg Tab) 75 mg PO DAILY [facility] Last Admin: 09/30/20 09:33 Dose: 75 mg Documented by: Folic Acid (Folic Acid 1 Mg Tab) 1 mg PO DAILY@1200 [facility] Last Admin: 09/30/20 11:47 Dose: Not Given Documented by: Folic Acid (Folic Acid 1 Mg Tab) 1 mg PO DAILY [facility] Last Admin: 09/30/20 09:36 Dose: 1 mg Documented by: Latanoprost (Latanoprost 0.005% Ophth Drops 2.5 Ml Btl) 1 drops BOTH EYES HS [facility] Last Admin: 09/29/20 21:13 Dose: 1 drops Documented by: Lisinopril (Lisinopril 5 Mg Tab) 5 mg PO DAILY [facility] Last Admin: 09/30/20 09:33 Dose: 5 mg Documented by: Morphine Sulfate (Morphine Sulfate 4 Mg/Ml Syringe) 4 mg IV Q5M PRN PRN Reason: Chest Pain Multivitamins (Multivitamins, Thera 1 Each Tab) 1 each PO DAILY [facility] Last Admin: 09/30/20 09:33 Dose: Not Given Documented by: Nitroglycerin (Nitroglycerin Sl Tabs 0.4 Mg Tab) 0.4 mg SUBLINGUAL Q5M PRN PRN Reason: Chest Pain Last Admin: 09/29/20 09:02 Dose: 0.4 mg Documented by: Nitroglycerin (Nitroglycerin Sl Tabs 0.4 Mg Tab) 0.4 mg SUBLINGUAL Q5M PRN PRN Reason: Chest Pain Phenytoin Sodium (Phenytoin Sodium Extended 100 Mg Cap) 100 mg PO TID [facility] Last Admin: 09/30/20 15:46 Dose: 100 mg Documented by: Pregabalin (Pregabalin 50 Mg Cap) 50 mg PO DAILY PRN PRN Reason: Pain Thiamine HCl (Thiamine 100 Mg Tab) 100 mg PO DAILY@1200 [facility] Last Admin: 09/30/20 11:50 Dose: 100 mg Documented by: Past medical history to include: GERD, hypertension, hyperlipidemia, osteoporosis, shingles, coronary bypass Social history: Lives alone. Does use a cane. Did smoke in the past. No alcohol. Physical examination: VITAL SIGNS: 98.1, 68, 16, 132/70, 99% room air GENERAL: Sitting upon a chair, appearing more comfortable EYES: Pupils equal. Conjunctiva normal. HEENT: External appearance of nose and ears normal, oral cavity grossly normal. NECK: JVD not raised; masses not palpable. HEART: First and second heart sounds are normal; no edema. LUNGS: Respiratory rate normal; decreased breath sounds. ABDOMEN: Soft, nontender, liver spleen not palpable, no masses palpable. PSYCH: Awake, alert, answering questions MUSCULAR skeletal: Evidence of OA INVESTIGATIONS, reviewed in the clinical context: 2-D echocardiogram results pending September 30: LDL 82 WBC 11.9 hemoglobin 12.9 platelets 309 potassium 4.5 creatinine 0.69 Troponin I 0.493, 0.60 EKG tracing personally reviewed by me-normal sinus rhythm, nonspecific changes Chest x-ray film personally reviewed by me-no obvious infiltrate. Some bowel loops Assessment and plan: -Acute non-Q wave myocardial infarction Aspirin, Tenormin, Lipitor, Plavix, IV heparin-discontinued, Zestril -Cardiac catheterization with successful angioplasty stenting to venous graft to the diagonal branch -Coronary artery disease with prior history of bypass Aspirin, Tenormin, Lipitor, Plavix IV heparin-discontinued Zestril -IV heparin monitoring-discontinued Follow PTT -Essential hypertension Tenormin, Zestril -Hyperlipidemia Lipitor Discussed with the patient. Increase activity as tolerated. Continue current medications. Pending 2-D echocardiogram results
[2020-09-30] MEDS: LATANOPROST 0.005% OPHTH DROPS 2.5 ML BTL BOTH EYES SCH (21:20)
[2020-09-30] MEDS: ATORVASTATIN 80 MG TAB PO SCH (21:20)
[2020-10-01] MEDS: ASPIRIN 81 MG PO SCH (08:05)
[2020-10-01] MEDS: atenoloL 25 MG TAB PO SCH (08:05)
[2020-10-01] MEDS: PHENYTOIN SODIUM EXTENDED 100 MG CAP PO SCH (08:05)
[2020-10-01] MEDS: lisinopriL 5 MG TAB PO SCH (08:05)
[2020-10-01] MEDS: CLOPIDOGREL 75 MG TAB PO SCH (08:06)
[2020-10-01] MEDS: FOLIC ACID 1 MG TAB PO SCH ×2 (08:06)
[2020-10-01] MEDS: MULTIVITAMINS, THERA 1 EACH TAB PO SCH (08:06)
[2020-10-01] MEDS: THIAMINE 100 MG TAB PO SCH (12:12)
[2020-10-01 12:16] VITALS: BP 138/76; PULSE 64; RESP 18; TEMP 98.3
--- NOTE | 2020-10-01 12:45 | P.PN ---
Subjective This is a 79-year-old male with a past medical history significant for coronary artery disease with previous CABG x 3 (approximately 15 years ago), h ypertension, and hyperlipidemia. Patient follows in the office with Dr. Dumont. We have been asked to see the patient in consultation for chest pain on 09/29/20. EKG reveals sinus mechanism with no signs of acute ischemia. Laboratory data: Troponin 0.142. 0.493. 0.609. Cardiac catheterization was recommended. Most recent echocardiogram obtained in 2019 revealed ejection fraction 45%. 09/29/20: Patient underwent cardiac catheterization with Dr. Dumont. Which revealed severe three-vessel coronary artery disease, left main coronary artery has a 99% stenosis, hypothyroidism and circumflex coronary artery approximately occluded. The proximal RCA shows a focal 80-90% stenosis. Patent ASHBY to LAD. Patent radial artery graft to OM and patent venous graft to the right coronary artery. Saphenous graft to diagonal branch is patent but has a focal area of stenosis of the mid portion with primary plaque rupture. Patient underwent successful stenting of the SVG to diagonal with Dr. Camejo. 10/01/2020: Patient seen and examined at bedside, sitting up in the bedside chair. Denies chest pain, shortness of breath, lightheadedness, dizziness. Blood pressure 138/76, heart rate 64, afebrile, maintaining oxygen saturations 90% on room air He is maintaining sinus mechanism heart rate 60s to 80s. He is currently maintained on aspirin 81 mg daily, atenolol 25 mg daily, atorvastatin 80 mg nightly, Plavix 75 mg daily, lisinopril 5 mg daily. Echocardiogram revealed an EF of 45-50%, moderate LVH, basal septum and basal. Wall is hypokinetic extended, RV is mild to moderately dilated, aortic valve is calcified, mild aortic stenosis, mild aortic regurgitation. PHYSICAL EXAM: VITAL SIGNS: Reviewed. GENERAL: Well-developed in no acute distress. HEENT: Mucous membranes of the mouth are moist. Neck supple. No JVD LUNGS: Respirations even and unlabored. Lungs essentially clear to auscultation bilaterally. HEART: Regular rate and rhythm. S1 and S2 heard. Systolic murmur noted ABDOMEN: Soft. Nondistended. Nontender. EXTREMITIES: Normal range of motion. No clubbing or cyanosis. Peripheral pulses intact. Trace bilateral lower extremity edema SKIN: Right femoral cath site, clean dry intact, no hematoma. NEUROLOGIC: Awake and alert. Oriented x 3. ASSESSMENT: Non-STEMI s/p PCI SVG to diagonal on 09/29/20 Coronary artery disease with previous CABG 3, 15 years ago Ischemic cardiomyopathy EF 45% Hypertension Hyperlipidemia PLAN: Continue dual antiplatelet therapy with aspirin and Plavix Continue patient's home medication atorvastatin 80 mg nightly, lisinopril 5 mg daily, atenolol 25 mg daily From a cardiology perspective, patient is table to be discharged home. Patient to follow up in the office with Dr. Dumont Nurse practitioner note has been reviewed by physician. Signing provider agrees with the documented findings, assessment, and plan of care. Objective - Vital Signs Vital signs: Vital Signs Temp 98.2 F 10/01/20 08:00 Pulse 83 10/01/20 08:00 Resp 19 10/01/20 08:00 BP 114/63 10/01/20 08:00 Pulse Ox 96 10/01/20 08:00 Intake & Output 09/30/20 10/01/20 10/01/20 18:59 06:59 18:59 Intake Total 960 240 Balance 960 240 Weight 107.6 kg Intake: Oral 960 240 Other: Voiding Method Urinal # Voids 1 1 0 # Bowel Movements 0 - Labs CBC & Chem 7: 09/29/20 07:42 09/29/20 15:36
--- NOTE | 2020-10-01 19:31 | P.DS ---
Providers Date of admission: 09/29/20 00:01 Expected date of discharge: 10/01/20 Attending physician: Kyle Geronimo Consults: 09/29/20 00:01 Consult Physician Urgent Consulting Provider: Darren Dumont Consult Reason/Comments: acute coronary syndrome Do you want consulting provider notified?: Yes Primary care physician: [facility] Course: Chief Complaint: Chest pain History of presenting complaint: This is a pleasant 79-year-old patient was transferred here from [facility]. Patient yesterday developed some left-sided chest pain. Associated with shortness of breath dizziness perspiration. Also had some edema. Pain was worse with activity and better with rest. Patient has known prior history of coronary bypass. Patient not a very good historian. Patient earlier had good undergone a cardiac catheterization. Found to have severe triple-vessel disease. Left main stenosis. Venous graft to the diagonal branch and a focal area of stenosis in its midportion with an area of plaque rupture. successful stenting of the same. ruled in for an acute non-Q wave [place]. September 30: Feeling better. No chest pain no shortness of breath. Sitting up eating. Did walk a little bit. Telemetry: Sinus rhythm. October 01: Stable. No chronic symptoms. Up and about. Cleared by cardiology. Questions answered.2-D echocardiogram results pending: verbal report was given Sedation: [facility] Past medical history to include: GERD, hypertension, hyperlipidemia, osteoporosis, shingles, coronary bypass Social history: Lives alone. Does use a cane. Did smoke in the past. No alcohol. Physical examination: VITAL SIGNS: 98.3, 64, 18, 1 38 x 76, 98% room air GENERAL: Sitting upon a chair, comfortable EYES: Pupils equal. Conjunctiva normal. HEENT: External appearance of nose and ears normal, oral cavity grossly normal. NECK: JVD not raised; masses not palpable. HEART: First and second heart sounds are normal; no edema. LUNGS: Respiratory rate normal; decreased breath sounds. ABDOMEN: Soft, nontender, liver spleen not palpable, no masses palpable. PSYCH: Awake, alert, answering questions MUSCULAR skeletal: Evidence of OA INVESTIGATIONS, reviewed in the clinical context: 2-D echocardiogram : [Verbal report] aortic stenosis, aortic regurgitation, EF 45-50% September 30: LDL 82 WBC 11.9 hemoglobin 12.9 platelets 309 potassium 4.5 creatinine 0.69 Troponin I 0.493, 0.60 EKG tracing personally reviewed by me-normal sinus rhythm, nonspecific changes Chest x-ray film personally reviewed by me-no obvious infiltrate. Some bowel loops Assessment and plan: -Acute non-Q wave myocardial infarction Aspirin, Tenormin, Lipitor, Plavix, IV heparin-discontinued, Zestril -Cardiac catheterization with successful angioplasty stenting to venous graft to the diagonal branch -Coronary artery disease with prior history of bypass Aspirin, Tenormin, Lipitor, Plavix IV heparin-discontinued Zestril -IV heparin monitoring-discontinued Follow PTT -Essential hypertension Tenormin, Zestril -Hyperlipidemia Lipitor -Aortic stenosis with aortic regurgitation Follow with cardiology Disposition: Home Patient Condition at Discharge: Stable Plan - Discharge Summary New Discharge Prescriptions: New Nitroglycerin Sl Tabs [Nitrostat] 0.4 mg SUBLINGUAL Q5M PRN #30 tab PRN Reason: Chest Pain Aspirin 81 mg PO DAILY chew Atorvastatin [Lipitor] 80 mg PO HS 30 Days #30 tab Clopidogrel [Plavix] 75 mg PO DAILY 90 Days #90 tab Continue atenoloL [Atenolol] 25 mg PO DAILY Enalapril Maleate 2.5 mg PO DAILY Phenytoin Sodium Extended [Dilantin] 100 mg PO TID #90 cap Thiamine [Vitamin B-1] 100 mg PO DAILY@1200 #30 tablet Furosemide [Lasix] 10 mg PO DAILY Pregabalin [Lyrica] 50 mg PO DAILY PRN PRN Reason: Pain HYDROcodone/APAP 5-325MG [[place] 5-325] 1 tab PO BID PRN PRN Reason: Pain Latanoprost/Pf [Latanoprost 0.005% Eye Drop] 1 drop BOTH EYES HS Folic Acid 0.8 mg PO DAILY Multivitamins, Thera [Multivitamin (formulary)] 1 tab PO DAILY Discontinued Simvastatin 40 mg PO HS Discharge Medication List Enalapril Maleate 2.5 mg PO DAILY 01/04/14 [History] atenoloL [Atenolol] 25 mg PO DAILY 01/04/14 [History] Phenytoin Sodium Extended [Dilantin] 100 mg PO TID #90 cap 01/07/14 [Rx] Thiamine [Vitamin B-1] 100 mg PO DAILY@1200 #30 tablet 10/21/14 [Rx] Folic Acid 0.8 mg PO DAILY 09/29/20 [History] Furosemide [Lasix] 10 mg PO DAILY 09/29/20 [History] HYDROcodone/APAP 5-325MG [[place] 5-325] 1 tab PO BID PRN 09/29/20 [History] Latanoprost/Pf [Latanoprost 0.005% Eye Drop] 1 drop BOTH EYES HS 09/29/20 [History] Multivitamins, Thera [Multivitamin (formulary)] 1 tab PO DAILY 09/29/20 [History] Pregabalin [Lyrica] 50 mg PO DAILY PRN 09/29/20 [History] Aspirin 81 mg PO DAILY chew 09/30/20 [Rx] Atorvastatin [Lipitor] 80 mg PO HS 30 Days #30 tab 10/01/20 [Rx] Clopidogrel [Plavix] 75 mg PO DAILY 90 Days #90 tab 10/01/20 [Rx] Nitroglycerin Sl Tabs [Nitrostat] 0.4 mg SUBLINGUAL Q5M PRN #30 tab 10/01/20 [Rx] Follow up Appointment(s)/Referral(s): Sky Lara MD [Primary Care Provider] - 1-2 days (office closed. Please call on Monday to make an appt.) Darren Dumont MD [STAFF PHYSICIAN] - 10/09/20 4:15 pm Patient Instructions/Handouts: *Surgery [facility] - After Heart Catheterization - Calender Operator Helper Instructions, Heart Attack (DC), Heart Healthy Diet (ED) Discharge Disposition: HOME SELF-CARE
--- NOTE | 2020-10-02 14:54 | ECHOF ---
Referral Reason:NSTEMI, LV function MEASUREMENTS -------- HEIGHT: 172.7 cm WEIGHT: 109.8 kg BP: 140/80 IVSd: 1.7 cm (0.6 - 1.1) LVIDd: 3.6 cm (3.9 - 5.3) LVPWd: 1.6 cm (0.6 - 1.1) EDV(Teich): 55 ml IVSs: 2.1 cm LVIDs: 2.4 cm LVPWs: 1.8 cm %IVS Thck: 22 % ESV(Teich): 21 ml EF(Teich): 63 % %FS: 33 % SV(Teich): 35 ml LVOT Diam: 2.9 cm LA Diam: 3.4 cm (2.7 - 3.8) RVIDd: 3.8 cm (< 3.3) LALs A4C: 6.1 cm LAAs A4C: 23.4 cm LAESV A-L A4C: 76 ml LAESV MOD A4C: 72 ml LALs A2C: 6.1 cm LAAs A2C: 19.4 cm LAESV A-L A2C: 52 ml LAESV MOD A2C: 52 ml LAESV(A-L): 63 ml LAESV Index (A-L): 28.48 ml/m Ao Diam: 3.8 cm (2.0 - 3.7) AV Cusp: 2.7 cm (1.5 - 2.6) EPSS: 1.4 cm MV E Can: 0.66 m/s MV DecT: 270 ms MV Dec [place]: 2.4 m/s MV A Can: 1.12 m/s MV E/A Ratio: 0.58 MV PHT: 78 ms LVOT Vmax: 0.82 m/s LVOT maxP.69 mmHg AV Vmax: 2.10 m/s AV maxP.67 mmHg LISE Vmax, Pt: 2.6 cm AV Vmax: 2.19 m/s AV Vmean: 1.56 m/s AV maxP.15 mmHg AV meanP.61 mmHg AV Env.Ti: 295 ms AV VTI: 46.0 cm LISE Vmax, Pt: 2.5 cm MV EF SLOPE: 44.71 mm/s (70 - 150) MV EXCURSION: 16.96 mm (> 18.000) FINDINGS -------- Sinus rhythm. This was a technically difficult study with suboptimal views. The left ventricular size is normal. There is moderate concentric left ventricular hypertrophy. O verall left ventricular systolic function is mildly impaired with, an EF between 45 - 50 %. Basal i nferior LV wall motion is hypokinetic. Basal inferoseptal LV wall motion is hypokinetic. The right ventricle is mild to moderately enlarged. Normal LA size by volume 22+/-6 ml/m2. The right atrium is normal in size. The aortic valve is bicuspid. There is moderate aortic valve sclerosis. There is mild aortic regu rgitation. There is mild aortic stenosis present. Peak/mean gradient across the Aortic Valve is 1 9.15mmHg / 10.61mmHg. Mild mitral annular calcification present. There is trace to mild mitral regurgitation. The tricuspid valve appears structurally normal. Unable to estimate RVSP due to inadequate TR jet s pectral doppler profile. The pulmonic valve is normal. The aortic root is dilated measuring 3.8cm. IVC Not well visulized. There is no pericardial effusion. 5 ml of Lumason was utilized for enhancement of images. CONCLUSIONS -------- 1. The left ventricular size is normal. 2. There is moderate concentric left ventricular hypertrophy. 3. Overall left ventricular systolic function is mildly impaired with, an EF between 45 - 50 %. 4. Basal inferior LV wall motion is hypokinetic. 5. Basal inferoseptal LV wall motion is hypokinetic. 6. The right ventricle is mild to moderately enlarged. 7. 5 ml of Lumason was utilized for enhancement of images. 8. The aortic valve is bicuspid. 9. There is moderate aortic valve sclerosis. 10. There is mild aortic regurgitation. 11. There is mild aortic stenosis present. 12. Peak/mean gradient across the Aortic Valve is 19.15mmHg / 10.61mmHg. 13. Mild mitral annular calcification present. 14. There is trace to mild mitral regurgitation. 15. The aortic root is dilated measuring 3.8cm. 16. There is no pericardial effusion. TOP LIFT COMPRESSER: Moni Kulkarni RDCS
== END 2020-10-01 14:56 | disposition home or self-care (01) | DRG 247 ==
LOC: EC 23:37 → 3SCARD 09-29 00:01
PROVIDERS: ADMIT Hospitalist; ATTEND Hospitalist
PROC: 027034Z Dilation of Coronary Artery, One Artery with Drug-eluting Intraluminal Device, Percutaneous Approach (ICD-10-PCS; principal; 2020-09-29 11:00)
PROC: B2131ZZ Fluoroscopy of Multiple Coronary Artery Bypass Grafts using Low Osmolar Contrast (ICD-10-PCS; 2020-09-29 11:00)
PROC: B2111ZZ Fluoroscopy of Multiple Coronary Arteries using Low Osmolar Contrast (ICD-10-PCS; 2020-09-29 11:00)
PROC: 4A023N7 Measurement of Cardiac Sampling and Pressure, Left Heart, Percutaneous Approach (ICD-10-PCS; 2020-09-29 11:00)
DX: I21.4 Non-ST elevation (NSTEMI) myocardial infarction (principal); I25.810 Atherosclerosis of coronary artery bypass graft(s) without angina pectoris; I10 Essential (primary) hypertension; Z95.1 Presence of aortocoronary bypass graft; B02.9 Zoster without complications; E03.9 Hypothyroidism, unspecified; I35.2 Nonrheumatic aortic (valve) stenosis with insufficiency; Z85.6 Personal history of leukemia; E78.5 Hyperlipidemia, unspecified; I25.10 Atherosclerotic heart disease of native coronary artery without angina pectoris; I25.2 Old myocardial infarction; I25.5 Ischemic cardiomyopathy; K21.9 Gastro-esophageal reflux disease without esophagitis; M81.0 Age-related osteoporosis without current pathological fracture; Z79.02 Long term (current) use of antithrombotics/antiplatelets; Z79.82 Long term (current) use of aspirin; Z79.899 Other long term (current) drug therapy; Z87.891 Personal history of nicotine dependence; Z90.89 Acquired absence of other organs; Z98.890 Other specified postprocedural states; Z88.0 Allergy status to penicillin; Z91.013 Allergy to seafood
CPT/HCPCS: 71046; 80048; 80053; 80061; 83735; 84484; 85025; 85730; 93005; 93306; 93459; 99285

== ENCOUNTER 2021-01-24 03:45 | Observation (INO) | payer MEDICARE ==
[2021-01-24 04:21] LABS: Basophils # (A) 0.1 k/uL (0-0.2); Basophils % (A) 1 %; Eosinophils # (A) 0.7 k/uL (0-0.7); Eosinophils % (A) 6 %; HCT 38.8 % (39.0-53.0); HGB 12.8 gm/dL (13.0-17.5); Lymphocytes # (A) 1.8 k/uL (1.0-4.8); Lymphocytes % (A) 14 %; MCH 28.8 pg (25.0-35.0); MCV 87.4 fL (80.0-100.0); Mean Platelet Volume 7.4; Monocytes % (A) 8 %; Neutrophils # (A) 8.9 k/uL (1.3-7.7); Neutrophils % (A) 71 %; Platelet Count 376 k/uL (150-450); RBC 4.44 m/uL (4.30-5.90); RDW 13.1 % (11.5-15.5); WBC 12.6 k/uL (3.8-10.6)
--- NOTE | 2021-01-24 04:23 | ED ---
Abdominal Pain HPI - General Chief Complaint: Abdominal Pain Stated Complaint: Chest Pain Time Seen by Provider: 01/24/21 03:57 Source: EMS Mode of arrival: EMS Limitations: no limitations - History of Present Illness Initial Comments: This patient is an 80-year-old man who presents for evaluation of right-sided trunk pain. Patient describes pain as sharp, severe, and intermittent. He has not noticed any relieving factors, but it does seem to be made worse by movement or palpation. The patient indicates the right upper quadrant near the costal ma rgin. She states that it does radiate up into the right chest and up to the base of his neck on the right. Patient during the history and physical seems to have a number of these episodes pain that come on and last just a few seconds at a time. The patient states that things have definitely improved since he left home. He is not aware of any inciting factors. He did not believe it was related to food. He did not have any injury or fall. Patient states she had not done any lifting today. MD Complaint: abdominal pain -: hour(s) Location: RUQ Radiation: chest Severity: severe Quality: sharp Consistency: intermittent Improves With: nothing Worsens With: movement Associated Symptoms: denies other symptoms - Related Data Home Medications Medication Instructions Recorded Confirmed Enalapril Maleate 2.5 mg PO DAILY 01/04/14 09/29/20 atenoloL 25 mg PO DAILY 01/04/14 09/29/20 Folic Acid 0.8 mg PO DAILY 09/29/20 09/29/20 Furosemide [Lasix] 10 mg PO DAILY 09/29/20 09/29/20 HYDROcodone/APAP 5-325MG [[place] 1 tab PO BID PRN 09/29/20 09/29/20 5-325] Latanoprost/Pf [Latanoprost 0.005% 1 drop BOTH EYES HS 09/29/20 09/29/20 Eye Drop] Multivitamins, Thera [Multivitamin 1 tab PO DAILY 09/29/20 09/29/20 (formulary)] Pregabalin [Lyrica] 50 mg PO DAILY PRN 09/29/20 09/29/20 Previous Rx's Medication Instructions Recorded Phenytoin Sodium Extended 100 mg PO TID #90 cap 01/07/14 [Dilantin] Thiamine [Vitamin B-1] 100 mg PO DAILY@1200 #30 tablet 01/07/14 Aspirin 81 mg PO DAILY chew 09/30/20 Atorvastatin [Lipitor] 80 mg PO HS 30 Days #30 tab 10/01/20 Clopidogrel [Plavix] 75 mg PO DAILY 90 Days #90 tab 10/01/20 Nitroglycerin Sl Tabs [Nitrostat] 0.4 mg SUBLINGUAL Q5M PRN #30 tab 10/01/20 Allergies Allergy/AdvReac Type Severity Reaction Status Date / Time Penicillins Allergy Rash/Hives Verified 09/29/20 06:45 red dye Allergy Anaphylaxis Verified 09/29/20 06:45 shellfish derived Allergy Anaphylaxis Verified 09/29/20 06:45 Review of Systems ROS Statement: Those systems with pertinent positive or pertinent negative responses have been documented in the HPI. ROS Other: All systems not noted in ROS Statement are negative. Constitutional: Denies: fever, chills Respiratory: Denies: cough, dyspnea Cardiovascular: Reports: as per HPI, chest pain. Denies: palpitations, orthopnea, edema, syncope Gastrointestinal: Reports: as per HPI, abdominal pain. 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, etc) History of Any Multi-Drug Resistant Organisms: None Reported Past Surgical History: Back Surgery, Cholecystectomy, Coronary Bypass/CABG, Tonsillectomy Additional Past Surgical History / Comment(s): hernia repair, Past Anesthesia/Blood Transfusion Reactions: No Reported Reaction Past Psychological History: No Psychological Hx Reported Past Alcohol Use History: None Reported Past Drug Use History: None Reported General Exam Limitations: no limitations General appearance: alert, in no apparent distress Head exam: Present: atraumatic, normocephalic Eye exam: Present: normal appearance. Absent: scleral icterus, conjunctival injection ENT exam: Present: normal oropharynx Neck exam: Present: normal inspection Respiratory exam: Present: normal lung sounds bilaterally. Absent: respiratory distress, wheezes, rales, rhonchi, stridor, chest wall tenderness Cardiovascular Exam: Present: regular rate, normal rhythm, systolic murmur. Absent: diastolic murmur, rubs, gallop GI/Abdominal exam: Present: soft, tenderness. Absent: distended, guarding, r ebound, rigid, mass, pulsatile mass, hernia Extremities exam: Present: normal inspection, normal capillary refill. Absent: pedal edema, calf tenderness Back exam: Present: normal inspection. Absent: CVA tenderness (R), CVA tenderness (L) Neurological exam: Present: alert Skin exam: Present: warm, dry, intact, normal color. Absent: rash Course Vital Signs 01/24/21 01/24/21 03:49 05:50 Temperature 98.3 F Pulse Rate 70 70 Respiratory 16 16 Rate Blood Pressure 141/83 128/78 O2 Sat by Pulse 96 97 Oximetry Medical Decision Making - Lab Data Result diagrams: 01/24/21 04:10 01/24/21 04:10 Lab Results 01/24/21 01/24/21 01/24/21 Range/Units 04:10 04:10 04:10 WBC 12.6 H (3.8-10.6) k/uL RBC 4.44 (4.30-5.90) m/uL Hgb 12.8 L (13.0-17.5) gm/dL Hct 38.8 L (39.0-53.0) % MCV 87.4 (80.0-100.0) fL MCH 28.8 (25.0-35.0) pg MCHC 33.0 (31.0-37.0) g/dL RDW 13.1 (11.5-15.5) % Plt Count 376 (150-450) k/uL MPV 7.4 Neutrophils % 71 % Lymphocytes % 14 % Monocytes % 8 % Eosinophils % 6 % Basophils % 1 % Neutrophils # 8.9 H (1.3-7.7) k/uL Lymphocytes # 1.8 (1.0-4.8) k/uL Monocytes # 1.0 (0-1.0) k/uL Eosinophils # 0.7 (0-0.7) k/uL Basophils # 0.1 (0-0.2) k/uL PT 9.9 (9.0-12.0) sec INR 0.9 (<1.2) APTT 24.7 (22.0-30.0) sec D-Dimer (<0.60) mg/L FEU Sodium 132 L (137-145) mmol/L Potassium 4.2 (3.5-5.1) mmol/L Chloride 101 (98-107) mmol/L Carbon Dioxide 22 (22-30) mmol/L Anion Gap 9 mmol/L BUN 16 (9-20) mg/dL Creatinine 0.65 L (0.66-1.25) mg/dL Est GFR (CKD-EPI)AfAm >90 (>60 ml/min/1.73 sqM) Est GFR (CKD-EPI)NonAf >90 (>60 ml/min/1.73 sqM) Glucose 119 H (74-99) mg/dL Calcium 9.2 (8.4-10.2) mg/dL Magnesium 1.8 (1.6-2.3) mg/dL Total Bilirubin 0.3 (0.2-1.3) mg/dL AST 35 (17-59) U/L ALT 27 (4-49) U/L Alkaline Phosphatase 112 (38-126) U/L Troponin I (0.000-0.034) ng/mL Total Protein 6.7 (6.3-8.2) g/dL Albumin 3.6 (3.5-5.0) g/dL Amylase (30-110) U/L Lipase (23-300) U/L 01/24/21 01/24/21 01/24/21 Range/Units 04:10 04:10 04:52 WBC (3.8-10.6) k/uL RBC (4.30-5.90) m/uL Hgb (13.0-17.5) gm/dL Hct (39.0-53.0) % MCV (80.0-100.0) fL MCH (25.0-35.0) pg MCHC (31.0-37.0) g/dL RDW (11.5-15.5) % Plt Count (150-450) k/uL MPV Neutrophils % % Lymphocytes % % Monocytes % % Eosinophils % % Basophils % % Neutrophils # (1.3-7.7) k/uL Lymphocytes # (1.0-4.8) k/uL Monocytes # (0-1.0) k/uL Eosinophils # (0-0.7) k/uL Basophils # (0-0.2) k/uL PT (9.0-12.0) sec INR (<1.2) APTT (22.0-30.0) sec D-Dimer 2.49 H (<0.60) mg/L FEU Sodium (137-145) mmol/L Potassium (3.5-5.1) mmol/L Chloride (98-107) mmol/L Carbon Dioxide (22-30) mmol/L Anion Gap mmol/L BUN (9-20) mg/dL Creatinine (0.66-1.25) mg/dL Est GFR (CKD-EPI)AfAm (>60 ml/min/1.73 sqM) Est GFR (CKD-EPI)NonAf (>60 ml/min/1.73 sqM) Glucose (74-99) mg/dL Calcium (8.4-10.2) mg/dL Magnesium (1.6-2.3) mg/dL Total Bilirubin (0.2-1.3) mg/dL AST (17-59) U/L ALT (4-49) U/L Alkaline Phosphatase (38-126) U/L Troponin I <0.012 (0.000-0.034) ng/mL Total Protein (6.3-8.2) g/dL Albumin (3.5-5.0) g/dL Amylase 51 (30-110) U/L Lipase 29 (23-300) U/L - EKG Data -: EKG Interpreted by [facility] EKG shows normal: sinus rhythm (With PVCs), intervals (MT interval 210 ms, consistent with first-degree AV block. QRS duration 1:30 milliseconds, consistent with intraventricular conduction delay. QTC 445 ms, normal) Rate: normal (Rate 65 bpm) Interpretation: [facility] Disposition Referrals: Sky Lara MD [Primary Care Provider] - 1-2 days
[2021-01-24 04:32] LABS: INR 0.9 (<1.2); Partial Thromboplastin Time 24.7 sec (22.0-30.0); Prothrombin Time 9.9 sec (9.0-12.0)
[2021-01-24 04:33] LABS: ALT 27 U/L (4-49); AST 35 U/L (17-59); African American GFR (CKD) >90 (>60 ml/min/1.73 sqM); Albumin 3.6 g/dL (3.5-5.0); Alkaline Phosphatase 112 U/L (38-126); Anion Gap 9 mmol/L; Blood Urea Nitrogen 16 mg/dL (9-20); Calcium 9.2 mg/dL (8.4-10.2); Carbon Dioxide 22 mmol/L (22-30); Chloride 101 mmol/L (98-107); Glucose 119 mg/dL (74-99); Magnesium 1.8 mg/dL (1.6-2.3); Non-African American GFR(CKD) >90 (>60 ml/min/1.73 sqM); Potassium 4.2 mmol/L (3.5-5.1); Sodium 132 mmol/L (137-145); Total Bilirubin 0.3 mg/dL (0.2-1.3); Total Protein 6.7 g/dL (6.3-8.2)
--- NOTE | 2021-01-24 04:41 | XR ---
EXAMINATION TYPE: XR chest 2V DATE OF EXAM: 01/24/2021 COMPARISON: 09/29/2020 HISTORY: Chest pain TECHNIQUE: 2 views FINDINGS: Heart is enlarged. There is some blunting of the right costophrenic angle. There are sterna l wires. There are no hilar masses. Bony thorax is intact. IMPRESSION: There is small right pleural effusion which appears new compared to old exam. No heart fa ilure.
[2021-01-24 05:09] LABS: Amylase 51 U/L (30-110); Lipase 29 U/L (23-300)
--- NOTE | 2021-01-24 07:11 | CT ---
EXAMINATION TYPE: CT chest angio for PE DATE OF EXAM: 01/24/2021 COMPARISON: None HISTORY: chest pain, SOB CT DLP: 462 mGycm Automated exposure control for dose reduction was used. CONTRAST: CT Chest for pulmonary embolism performed with with IV Contrast, patient injected with 65 mL of Isovu e 370. FINDINGS: LUNGS: There is a moderate to large right pleural effusion and mild right lower lobe atelectasis. The lungs are otherwise clear of dense consolidative density or mass. The heart is enlarged and the pulmonary vasculature appears mildly prominent. There is satisfactory opacification of the pulmonary vessels and there is no filling defect to sugges t pulmonary embolism. There is no pneumothorax. There is scanning through the upper abdomen reveals no gross abnormality. The osseous structures are intact. IMPRESSION: 1. No evidence of pulmonary embolism. 2. Moderate to large right pleural effusion. 3. Suggestion of mild pulmonary vascular congestion with moderate to marked cardiomegaly.
[2021-01-24] MEDS ORDERED: NALOXONE 0.4 MG/ML 1 ML VIAL IV PRN (07:33)
[2021-01-24] MEDS ORDERED: PREGABALIN 50 MG CAP PO PRN (07:38)
[2021-01-24] MEDS ORDERED: NITROGLYCERIN SL TABS 0.4 MG TAB SUBLINGUAL PRN (07:38)
[2021-01-24] MEDS ORDERED: MORPHINE SULFATE 4 MG/ML SYRINGE IV STA (07:38)
[2021-01-24] MEDS ORDERED: FAMOTIDINE 20 MG TAB PO SCH (09:00)
[2021-01-24] MEDS ORDERED: FUROSEMIDE 10 MG TAB PO SCH (09:00)
[2021-01-24] MEDS: lisinopriL 5 MG TAB PO SCH (09:58)
[2021-01-24] MEDS: CLOPIDOGREL 75 MG TAB PO SCH (09:59)
[2021-01-24] MEDS: ASPIRIN 81 MG PO SCH (09:59)
[2021-01-24] MEDS: MULTIVITAMINS, THERA 1 EACH TAB PO SCH (09:59)
[2021-01-24] MEDS: atenoloL 25 MG TAB PO SCH (10:00)
[2021-01-24] MEDS: HEPARIN SODIUM,PORCINE/PF 5,000 UNIT/0.5 ML SYRINGE SQ SCH ×2 (10:03→21:38)
--- NOTE | 2021-01-24 10:55 | US ---
EXAMINATION TYPE: US chest DATE OF EXAM: 01/24/2021 COMPARISON: NONE CLINICAL HISTORY: pleural effusion. TECHNIQUE: Targeted ultrasound of the posterior lower bilateral hemithoraces EXAM MEASUREMENTS: Right Pleural Effusion pocket size: 2.2 cm Right skin surface to fluid distance: 4.1 cm Right side not marked for possible thoracentesis outside the dept. Left side not marked for possible thoracentesis outside the dept. Pulmonologists are able to review the images in the patient?s EMR. IMPRESSIONS: 1. Minimal pleural fluid on the left and a very small right-sided pleural effusion.
[2021-01-24] MEDS ORDERED: FUROSEMIDE 10 MG/ML 4 ML VIAL IV SCH (12:45)
--- NOTE | 2021-01-24 13:22 | P.CRDCN ---
History of Present Illness History of present illness: HISTORY OF PRESENTING ILLNESS Patient is pleasant 80-year-old male with history of coronary artery disease status post CABG and recent PCI 09/2020, hypertension, hyperlipidemia, GERD who follows in the office with Dr. Dumont. He initially had been having chest discomfort in September when he was cutting the grass and felt very diaphoretic and was found to have non-STEMI and underwent cardiac catheterization with stenting of the SVG to diagonal branch. Patient is somewhat of a poor historian however states he had been feeling fairly well up until the last 2 days when he started feeling more right lower quadrant abdominal pain which radiated all the way up his chest into his right jaw. The fact that one to his jaw was more concerning for him. He also has been having some mild dyspnea with exertion. Denies any recent fevers, chills, cough. Workup showed white blood cell count 12.6, hemoglobin 12.8, d-dimer 2.49, sodium 132, BUN 16, creatinine 0.65, troponin negative 3. A CT thorax was performed which showed no PE, moderate to large right pleural effusion and suggestion of mild pulmonary vascular congestion. EKG showed sinus rhythm with LVH and nonspecific ST, T-wave abnormalities. REVIEW OF SYSTEMS At the time of my exam: CONSTITUTIONAL: Denies fever or chills. CARDIOVASCULAR: +chest pain, + shortness of breath, no orthopnea, PND or palpitations. RESPIRATORY: Denies cough. GASTROINTESTINAL: Denies abdominal pain, diarrhea, constipation, nausea or vomiting. MUSCULOSKELETAL: Denies myalgias. NEUROLOGIC: Denies numbness, tingling or weakness. ENDOCRINE: Denies fatigue, weight change, polydipsia or polyurina. GENITOURINARY: Denies burning, hematuria or urgency with micturation. HEMATOLOGIC: Denies history of anemia or bleeding. PHYSICAL EXAMINATION Vital signs reviewed. CONSTITUTIONAL: No apparent distress. HEENT: Head is normocephalic. Pupils are equal, round. Sclerae anicteric. Mucous membranes of the mouth are moist. No JVD. No carotid bruit. CHEST EXAMINATION: Lungs are clear to auscultation. Decreased breath sounds on the right HEART EXAMINATION: Regular rate and rhythm. S1, S2 heard. No murmurs, gallops or rub. ABDOMEN: Soft, nontender. Positive bowel sounds. EXTREMITIES: 2+ peripheral pulses, no lower extremity edema and no calf tenderness. NEUROLOGIC EXAMINATION: Patient is awake, alert and oriented x3. ASSESSMENT 1. Atypical chest pain, appears more related to right lower quadrant abdominal pain 2. Moderate right pleural effusion 3. Coronary artery disease with history of prior CABG, recent PCI 09/2020 4. Hypertension 5. Hyperlipidemia PLAN Patient's chest pain appears atypical. It appears he mainly presented with more abdominal pain however was found to have a moderate sized pleural effusion. We will check a BNP. We will give gentle IV diuresis and monitor kidney function. Check 2-D echo. This is not obvious heart failure and may be related to other reasons for pleural effusion however monitor response of diuresis. Further recommendations to follow. 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, etc) History of Any Multi-Drug Resistant Organisms: None Reported Past Surgical History: Back Surgery, Cholecystectomy, Coronary Bypass/CABG, Tonsillectomy Additional Past Surgical History / Comment(s): hernia repair, Past Anesthesia/Blood Transfusion Reactions: No Reported Reaction Past Psychological History: No Psychological Hx Reported Past Alcohol Use History: None Reported Past Drug Use History: None Reported Medications and Allergies Home Medications Medication Instructions Recorded Confirmed Type Enalapril Maleate 2.5 mg PO DAILY 01/04/14 01/24/21 History atenoloL 25 mg PO DAILY 01/04/14 01/24/21 History Phenytoin Sodium Extended 100 mg PO TID #90 cap 01/07/14 01/24/21 Rx [Dilantin] Thiamine [Vitamin B-1] 100 mg PO DAILY@1200 #30 tablet 01/07/14 01/24/21 Rx Folic Acid 0.8 mg PO DAILY 09/29/20 01/24/21 History Furosemide [Lasix] 10 mg PO DAILY 09/29/20 01/24/21 History HYDROcodone/APAP 5-325MG [[place] 1 tab PO BID PRN 09/29/20 01/24/21 History 5-325] Latanoprost/Pf [Latanoprost 0.005% 1 drop BOTH EYES HS 09/29/20 01/24/21 History Eye Drop] Multivitamins, Thera [Multivitamin 1 tab PO DAILY 09/29/20 01/24/21 History (formulary)] Pregabalin [Lyrica] 50 mg PO DAILY PRN 09/29/20 01/24/21 History Aspirin 81 mg PO DAILY chew 09/30/20 01/24/21 Rx Atorvastatin [Lipitor] 80 mg PO HS 30 Days #30 tab 10/01/20 01/24/21 Rx Clopidogrel [Plavix] 75 mg PO DAILY 90 Days #90 tab 10/01/20 01/24/21 Rx Nitroglycerin Sl Tabs [Nitrostat] 0.4 mg SUBLINGUAL Q5M PRN #30 tab 10/01/20 01/24/21 Rx Loperamide HCl [Imodium A-D] 2 mg PO DAILY 01/24/21 01/24/21 History Meloxicam [Mobic] 7.5 mg PO DAILY PRN 01/24/21 01/24/21 History Allergies Allergy/AdvReac Type Severity Reaction Status Date / Time Penicillins Allergy Rash/Hives Verified 01/24/21 07:57 red dye Allergy Anaphylaxis Verified 01/24/21 07:57 shellfish derived Allergy Anaphylaxis Verified 01/24/21 07:57 Physical Exam Vitals: Vital Signs Temp Pulse Resp BP Pulse Ox 01/24/21 06:49 66 16 131/79 96 01/24/21 05:50 70 16 128/78 97 01/24/21 03:49 98.3 F 70 16 141/83 96 Intake and Output 01/23/21 01/24/21 01/24/21 23:59 06:59 14:59 Other: Weight Results 01/24/21 04:10 01/24/21 04:10 Cardiac Enzymes 01/24/21 01/24/21 01/24/21 Range/Units 04:10 04:10 09:13 AST 35 (17-59) U/L Troponin I <0.012 0.012 (0.000-0.034) ng/mL 01/24/21 Range/Units 12:25 AST (17-59) U/L Troponin I 0.014 (0.000-0.034) ng/mL Coagulation 01/24/21 Range/Units 04:10 PT 9.9 (9.0-12.0) sec APTT 24.7 (22.0-30.0) sec CBC 01/24/21 Range/Units 04:10 WBC 12.6 H (3.8-10.6) k/uL RBC 4.44 (4.30-5.90) m/uL Hgb 12.8 L (13.0-17.5) gm/dL Hct 38.8 L (39.0-53.0) % Plt Count 376 (150-450) k/uL Comprehensive Metabolic Panel 01/24/21 Range/Units 04:10 Sodium 132 L (137-145) mmol/L Potassium 4.2 (3.5-5.1) mmol/L Chloride 101 (98-107) mmol/L Carbon Dioxide 22 (22-30) mmol/L BUN 16 (9-20) mg/dL Creatinine 0.65 L (0.66-1.25) mg/dL Glucose 119 H (74-99) mg/dL Calcium 9.2 (8.4-10.2) mg/dL AST 35 (17-59) U/L ALT 27 (4-49) U/L Alkaline Phosphatase 112 (38-126) U/L Total Protein 6.7 (6.3-8.2) g/dL Albumin 3.6 (3.5-5.0) g/dL Current Medications Generic Name Dose Route Start Last Admin Trade Name Freq PRN Reason Stop Dose Admin Hydrocodone Bitart/Acetaminophen 1 each 01/24/21 07:37 Hydrocodone/Apap 5-325mg 1 Each Tab PO Q4H PRN Pain Aspirin 81 mg 01/24/21 09:00 01/24/21 09:59 Aspirin 81 Mg PO 81 mg DAILY LYUBOV Administration Atenolol 25 mg 01/24/21 09:00 01/24/21 10:00 Atenolol 25 Mg Tab PO 25 mg DAILY LYUBOV Administration Atorvastatin Calcium 80 mg 01/24/21 21:00 Atorvastatin 80 Mg Tab PO HS LYUBOV Clopidogrel Bisulfate 75 mg 01/24/21 09:00 01/24/21 09:59 Clopidogrel 75 Mg Tab PO 75 mg DAILY LYUBOV Administration Famotidine 20 mg 01/24/21 21:00 Famotidine 20 Mg Tab PO BID LYUBOV Furosemide 40 mg 01/24/21 12:45 Furosemide 10 Mg/Ml 4 Ml Vial IV Q12HR LYUBOV Heparin Sodium (Porcine) 5,000 unit 01/24/21 09:00 01/24/21 10:03 Heparin Sodium,Porcine/Pf 5,000 Unit/0.5 Ml Syringe SQ 5,000 unit Q12HR LYUBOV Administration Latanoprost 1 drops 01/24/21 21:00 Latanoprost 0.005% Ophth Drops 2.5 Ml Btl BOTH EYES HS LYUBOV Lisinopril 5 mg 01/24/21 09:00 01/24/21 09:58 Lisinopril 5 Mg Tab PO 5 mg DAILY LYUBOV Administration Multivitamins 1 each 01/24/21 09:00 01/24/21 09:59 Multivitamins, Thera 1 Each Tab PO 1 each DAILY LYUBOV Administration Naloxone HCl 0.2 mg 01/24/21 07:33 Naloxone 0.4 Mg/Ml 1 Ml Vial IV Q2M PRN Opioid Reversal Nitroglycerin 0.4 mg 01/24/21 07:38 Nitroglycerin Sl Tabs 0.4 Mg Tab SUBLINGUAL Q5M PRN Chest Pain Phenytoin Sodium 100 mg 01/24/21 09:00 Phenytoin Sodium Extended 100 Mg Cap PO TID LYUBOV Pregabalin 50 mg 01/24/21 07:38 Pregabalin 50 Mg Cap PO DAILY PRN Pain Thiamine HCl 100 mg 01/24/21 12:00 Thiamine 100 Mg Tab PO DAILY@1200 LYUBOV Intake and Output 01/23/21 01/24/21 01/24/21 23:59 06:59 14:59 Other: Weight 01/24/21 04:10 01/24/21 04:10
--- NOTE | 2021-01-24 13:40 | P.CNPUL ---
History of Present Illness Consult date: 01/24/21 Requesting physician: Ryan Polanco Reason for consult: pleural effusion, abnormal CXR/CT Chief complaint: Pleural effusion. History of present illness: Pulmonary consultation dated 01/24/2021. 80-year-old male, seen in the emergency room. We were consulted because of a abnormal chest x-ray and CAT scan suggesting a right-sided pleural effusion. The ultrasound that we ordered, showed a very small right-sided pleural effusion, not worth doing a thoracentesis on. The patient came in with complaints of pain in his right lower quadrant of his abdomen. It apparently radiated to his right shoulder. He really wasn't having much in the way of shortness of breath. He denied any fever or chills. He denied any nausea, vomiting, or diarrhea. When asked where the pain was, he pointed in the right lower quadrant of the abdomen. The patient apparently has a history of gastroesophageal reflux disease, hyperlipidemia, osteoarthritis, leukemia, shingles, and previous bypass grafting. White count 12.6, hemoglobin 12.8, hematocrit 38.8, and platelet count 376,000. D-dimer was 2.49. Sodium 132, potassium 4.2, chlorides 101, CO2 22, anion gap 9, BUN 16, with a creatinine of 0.65. Troponins were essentially negative. Testing for aldridge virus was negative well. The chest x-ray suggested a very small right-sided pleural effusion. CT angiogram was negative for PE. Ultrasound the right chest showed a very small right-sided pleural effusion. Review of Systems REVIEW OF SYSTEMS: CONSTITUTIONAL: [Negative.] NEUROLOGIC: [ Negative.] HEENT: [ Negative.] CARDIAC: [Negative.] PULMONARY: [Negative.] GI: Sharp abdominal pain. : [Negative.] RHEUMATOLOGIC: [ Negative.] IMMUNOLOGIC: [ Negative.] ENDOCRINE: [Negative. ] DERMATOLOGIC: [Negative.] 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, etc) History of Any Multi-Drug Resistant Organisms: None Reported Past Surgical History: Back Surgery, Cholecystectomy, Coronary Bypass/CABG, Tonsillectomy Additional Past Surgical History / Comment(s): hernia repair, Past Anesthesia/Blood Transfusion Reactions: No Reported Reaction Past Psychological History: No Psychological Hx Reported Past Alcohol Use History: None Reported Past Drug Use History: None Reported Medications and Allergies Home Medications Medication Instructions Recorded Confirmed Type Enalapril Maleate 2.5 mg PO DAILY 01/04/14 01/24/21 History atenoloL 25 mg PO DAILY 01/04/14 01/24/21 History Phenytoin Sodium Extended 100 mg PO TID #90 cap 01/07/14 01/24/21 Rx [Dilantin] Thiamine [Vitamin B-1] 100 mg PO DAILY@1200 #30 tablet 01/07/14 01/24/21 Rx Folic Acid 0.8 mg PO DAILY 09/29/20 01/24/21 History Furosemide [Lasix] 10 mg PO DAILY 09/29/20 01/24/21 History HYDROcodone/APAP 5-325MG [[place] 1 tab PO BID PRN 09/29/20 01/24/21 History 5-325] Latanoprost/Pf [Latanoprost 0.005% 1 drop BOTH EYES HS 09/29/20 01/24/21 History Eye Drop] Multivitamins, Thera [Multivitamin 1 tab PO DAILY 09/29/20 01/24/21 History (formulary)] Pregabalin [Lyrica] 50 mg PO DAILY PRN 09/29/20 01/24/21 History Aspirin 81 mg PO DAILY chew 09/30/20 01/24/21 Rx Atorvastatin [Lipitor] 80 mg PO HS 30 Days #30 tab 10/01/20 01/24/21 Rx Clopidogrel [Plavix] 75 mg PO DAILY 90 Days #90 tab 10/01/20 01/24/21 Rx Nitroglycerin Sl Tabs [Nitrostat] 0.4 mg SUBLINGUAL Q5M PRN #30 tab 10/01/20 01/24/21 Rx Loperamide HCl [Imodium A-D] 2 mg PO DAILY 01/24/21 01/24/21 History Meloxicam [Mobic] 7.5 mg PO DAILY PRN 01/24/21 01/24/21 History Allergies Allergy/AdvReac Type Severity Reaction Status Date / Time Penicillins Allergy Rash/Hives Verified 01/24/21 07:57 red dye Allergy Anaphylaxis Verified 01/24/21 07:57 shellfish derived Allergy Anaphylaxis Verified 01/24/21 07:57 Physical Exam Osteopathic Statement: *. No significant issues noted on an osteopathic structural exam other than those noted in the History and Physical/Consult. Vitals: Vital Signs Temp Pulse Resp BP Pulse Ox 01/24/21 06:49 66 16 131/79 96 01/24/21 05:50 70 16 128/78 97 01/24/21 03:49 98.3 F 70 16 141/83 96 Intake and Output 01/23/21 01/24/21 01/24/21 23:59 06:59 14:59 Other: Weight No acute distress, oriented 3. No respiratory distress. Room air saturation is 97%. HEENT examination is grossly unremarkable. Neck supple. Full range of motion. No adenopathy thyromegaly or neck vein distention. Cardiovascular examination reveals regular rhythm rate. S1-S2 normal. No S3 or S4. No discernible murmur noted. Heart rate 66 bpm. Lungs reveal clear breath sounds. No wheezes, rhonchi, or crackles. Breath sounds are equal bilaterally.. Abdomen examination reveals tenderness on palpation in the right lower quadrant of the abdomen. Bowel sounds are noted. Extremities are intact. No cyanosis clubbing or edema. Skin is without rash or lesion. Neurologic examination is brief but nonfocal. Results - Laboratory Findings CBC and BMP: 01/24/21 04:10 01/24/21 04:10 PT/INR, D-dimer PT 9.9 sec (9.0-12.0) 01/24/21 04:10 INR 0.9 (<1.2) 01/24/21 04:10 D-Dimer 2.49 mg/L FEU (<0.60) H 01/24/21 04:52 Abnormal lab findings: Abnormal Labs 01/24/21 01/24/21 01/24/21 04:10 04:10 04:52 WBC 12.6 H Hgb 12.8 L Hct 38.8 L Neutrophils # 8.9 H D-Dimer 2.49 H Sodium 132 L Creatinine 0.65 L Glucose 119 H - Diagnostic Findings Chest x-ray: image reviewed CT scan - chest: image reviewed Assessment and Plan Assessment: Small right-sided pleural effusion, not worth doing a thoracentesis on. Right lower quadrant abdominal pain, of unclear etiology. Currently being evaluated and worked up by the primary service. No evidence of pulmonary embolism on CT angiogram. History of gastroesophageal reflux disease. History of hyperlipidemia. History of osteoarthritis. Previous bypass grafting. History of shingles. History of leukemia. Plan: Plan dated 01/24/2021. The patient has a very small right-sided pleural effusion. This was confirmed on the ultrasound of the right chest. It is not worth doing a thoracentesis on him. The patient's primary complaint is right lower quadrant abdominal pain. That should be worked up by the primary service. The patient denies any respiratory difficulty, and his room air saturations are 97%. We will see the patient moving forward, only as needed. Time with Patient: Greater than 30
[2021-01-24] MEDS: PHENYTOIN SODIUM EXTENDED 100 MG CAP PO SCH ×3 (15:33→21:38)
[2021-01-24] MEDS: THIAMINE 100 MG TAB PO SCH (15:33)
[2021-01-24] MEDS: HYDROcodone/APAP 5-325MG 1 EACH TAB PO PRN (17:05)
[2021-01-24] MEDS ORDERED: FUROSEMIDE 10 MG/ML 2 ML VIAL IV SCH (18:00)
--- NOTE | 2021-01-24 18:43 | XR ---
EXAMINATION TYPE: XR KUB DATE OF EXAM: 01/24/2021 COMPARISON: NONE HISTORY: Abdominal pain TECHNIQUE: 2 views FINDINGS: Bowel gas pattern is normal. There is no sign of intestinal obstruction or pneumoperitoneum . Fecal pattern is normal. There is no evidence of a mass. There are no definite calcifications over the kidneys. There is surgical clips in the upper abdomen. There is slight blunting right costophreni c angle. IMPRESSION: Pleural reaction at the right lung base. Nonacute bowel gas pattern.
[2021-01-24] MEDS: FUROSEMIDE 10 MG/ML 4 ML VIAL IV SCH (19:24)
[2021-01-24] MEDS: FAMOTIDINE 20 MG TAB PO SCH (21:37)
[2021-01-24] MEDS: ATORVASTATIN 80 MG TAB PO SCH (21:38)
[2021-01-24] MEDS: LATANOPROST 0.005% OPHTH DROPS 2.5 ML BTL BOTH EYES SCH (23:22)
[2021-01-25] MEDS: FUROSEMIDE 10 MG/ML 4 ML VIAL IV SCH (06:08)
--- NOTE | 2021-01-25 06:59 | P.HPIM ---
History of Present Illness This is a pleasant 80 years old female with past medical history of GERD, Hyperlipidemia, Osteoarthritis , shingles, h/o Coronary Bypass/CABG. With recent cardiac cath with successful angioplasty and stenting to venous graft to the conal branch on 09/29/2020. Possible previous history of leukemia Presents with a right sides pain doesn't increase with deep cough and deep breath. For 2 days duration. He points to the right side of the chest and also to the right side of the abdomen and complained from tenderness on the right side in the abdomen as well. He states that he spends 10/10, like thrombin associated with cough but no phlegm and some dyspnea. Patient also complains from diarrhea for about a month, few times but could not specify how much. No vomiting. He has L5 puncheon of procedure about one month ago. No urinary symptoms or dysuria Denies smoking, alcohol or illicit drug Vitals are stable and patient is afebrile. He has chronic leukocytosis, currently 12.6 which is at baseline Sodium 132, rest of the BMP liver enzymes are unremarkable. Lipase normal at 29. Troponin 2 are negative at 0.012. Coronavirus not detected. EKG showing normal sinus rhythm at 65 with first-degree AV block and QTC 445. No significant ST-T changes D-dimer elevated 2.9. CTA of the chest showing no evidence of pulmonary embolism, moderate to large pleural effusion and sedation of mild pulmonary vascular congestion with cardiomegaly Chest ultrasound: Pleural effusion pulmonary team consulted Echocardiogram from 09/29/2020: Ejection fraction 45-50% Review of Systems CONSTITUTIONAL: No fever, no malaise, no fatigue. HEENT: No recent visual problems or hearing problems. Denied any sore throat. CARDIOVASCULAR: No orthopnea, PND, no palpitations, no syncope. PULMONARY: No shortness of breath, no cough, no hemoptysis. GASTROINTESTINAL: No diarrhea, no nausea, no vomiting, no abdominal pain. Normoactive bowel sounds. NEUROLOGICAL: No headaches, no weakness, no numbness. HEMATOLOGICAL: Denies any bleeding or petechiae. GENITOURINARY: Denies any burning micturition, frequency, or urgency. MUSCULOSKELETAL/RHEUMATOLOGICAL: Denies any joint pain, swelling, or any muscle pain. ENDOCRINE: Denies any polyuria or polydipsia. 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, etc) History of Any Multi-Drug Resistant Organisms: None Reported Past Surgical History: Back Surgery, Cholecystectomy, Coronary Bypass/CABG, Tonsillectomy Additional Past Surgical History / Comment(s): hernia repair, Past Anesthesia/Blood Transfusion Reactions: No Reported Reaction Past Psychological History: No Psychological Hx Reported Past Alcohol Use History: None Reported Past Drug Use History: None Reported Medications and Allergies Home Medications Medication Instructions Recorded Confirmed Type Enalapril Maleate 2.5 mg PO DAILY 01/04/14 01/24/21 History atenoloL 25 mg PO DAILY 01/04/14 01/24/21 History Phenytoin Sodium Extended 100 mg PO TID #90 cap 01/07/14 01/24/21 Rx [Dilantin] Thiamine [Vitamin B-1] 100 mg PO DAILY@1200 #30 tablet 01/07/14 01/24/21 Rx Folic Acid 0.8 mg PO DAILY 09/29/20 01/24/21 History Furosemide [Lasix] 10 mg PO DAILY 09/29/20 01/24/21 History HYDROcodone/APAP 5-325MG [[place] 1 tab PO BID PRN 09/29/20 01/24/21 History 5-325] Latanoprost/Pf [Latanoprost 0.005% 1 drop BOTH EYES HS 09/29/20 01/24/21 History Eye Drop] Multivitamins, Thera [Multivitamin 1 tab PO DAILY 09/29/20 01/24/21 History (formulary)] Pregabalin [Lyrica] 50 mg PO DAILY PRN 09/29/20 01/24/21 History Aspirin 81 mg PO DAILY chew 09/30/20 01/24/21 Rx Atorvastatin [Lipitor] 80 mg PO HS 30 Days #30 tab 10/01/20 01/24/21 Rx Clopidogrel [Plavix] 75 mg PO DAILY 90 Days #90 tab 10/01/20 01/24/21 Rx Nitroglycerin Sl Tabs [Nitrostat] 0.4 mg SUBLINGUAL Q5M PRN #30 tab 10/01/20 01/24/21 Rx Loperamide HCl [Imodium A-D] 2 mg PO DAILY 01/24/21 01/24/21 History Meloxicam [Mobic] 7.5 mg PO DAILY PRN 01/24/21 01/24/21 History Allergies Allergy/AdvReac Type Severity Reaction Status Date / Time Penicillins Allergy Rash/Hives Verified 01/24/21 07:57 red dye Allergy Anaphylaxis Verified 01/24/21 07:57 shellfish derived Allergy Anaphylaxis Verified 01/24/21 07:57 Physical Exam Vitals: Vital Signs Temp Pulse Resp BP Pulse Ox 01/24/21 06:49 66 16 131/79 96 01/24/21 05:50 70 16 128/78 97 01/24/21 03:49 98.3 F 70 16 141/83 96 Intake and Output 01/23/21 01/24/21 01/24/21 23:59 06:59 14:59 Other: Weight GENERAL: The patient is alert and oriented x3, not in any acute distress. Well developed, well nourished. HEENT: Pupils are round and equally reacting to light. EOMI. No scleral icterus. No conjunctival pallor. Normocephalic, atraumatic. No pharyngeal erythema. No thyromegaly. CARDIOVASCULAR: S1 and S2 present. No murmurs, rubs, or gallops. PULMONARY: Chest is clear to auscultation, no wheezing or crackles. ABDOMEN: Soft, nontender, nondistended, normoactive bowel sounds. No palpable organomegaly. MUSCULOSKELETAL: No joint swelling or deformity. EXTREMITIES: No cyanosis, clubbing, or pedal edema. NEUROLOGICAL: Gross neurological examination did not reveal any focal deficits. SKIN: No rashes. No petechiae Results CBC & Chem 7: 01/24/21 04:10 01/24/21 04:10 Labs: Abnormal Lab Results - Last 24 Hours (Table) 01/24/21 01/24/21 01/24/21 Range/Units 04:10 04:10 04:52 WBC 12.6 H (3.8-10.6) k/uL Hgb 12.8 L (13.0-17.5) gm/dL Hct 38.8 L (39.0-53.0) % Neutrophils # 8.9 H (1.3-7.7) k/uL D-Dimer 2.49 H (<0.60) mg/L FEU Sodium 132 L (137-145) mmol/L Creatinine 0.65 L (0.66-1.25) mg/dL Glucose 119 H (74-99) mg/dL Assessment and Plan Assessment: Right sided pain With right more than left pleural effusion Possible acute on chronic systolic CHF with ejection fraction 45-50% History of coronary artery disease status post CABG with recent PCI to the venous stent 4 months ago Chronic leukocytosis with possible history of leukemia Hypertension History of GERD History of osteoarthritis Plan: This is a pleasant 80 years old male presents with bilateral pleural effusion Continue with pulmonary consult for possible thoracocentesis Start patient on Lasix 40 mg twice a day Pulmonary and cardiology consult Check KUB for his abdominal pain and diarrhea Labs and medication were reviewed.. Continue same treatment. Continue with symptomatic treatment. Resume home medication. Monitor lytes and vitals. DVT and GI prophylaxis. Further recommendations depends on the clinical course of the patient DVT prophylaxis: Subcutaneous heparin GI Prophylaxis: Pepcid PT/OT: Pending Prognosis is guarded
[2021-01-25] MEDS: atenoloL 25 MG TAB PO SCH (08:56)
[2021-01-25] MEDS: MULTIVITAMINS, THERA 1 EACH TAB PO SCH (08:56)
[2021-01-25] MEDS: CLOPIDOGREL 75 MG TAB PO SCH (08:56)
[2021-01-25] MEDS: FAMOTIDINE 20 MG TAB PO SCH ×2 (08:56→21:44)
[2021-01-25] MEDS: ASPIRIN 81 MG PO SCH (08:56)
[2021-01-25] MEDS: HEPARIN SODIUM,PORCINE/PF 5,000 UNIT/0.5 ML SYRINGE SQ SCH ×2 (08:56→21:44)
[2021-01-25] MEDS: HYDROcodone/APAP 5-325MG 1 EACH TAB PO PRN (09:03)
[2021-01-25 09:55] LABS: Basophils # (A) 0.1 k/uL (0-0.2); Basophils % (A) 1 %; Eosinophils # (A) 0.6 k/uL (0-0.7); Eosinophils % (A) 4 %; HCT 43.3 % (39.0-53.0); HGB 13.9 gm/dL (13.0-17.5); Lymphocytes # (A) 2.5 k/uL (1.0-4.8); Lymphocytes % (A) 19 %; MCH 28.9 pg (25.0-35.0); MCHC 32.2 g/dL (31.0-37.0); MCV 89.7 fL (80.0-100.0); Mean Platelet Volume 7.8; Monocytes # (A) 1.1 k/uL (0-1.0); Monocytes % (A) 8 %; Neutrophils # (A) 8.7 k/uL (1.3-7.7); Neutrophils % (A) 67 %; Platelet Count 391 k/uL (150-450); RBC 4.83 m/uL (4.30-5.90); RDW 13.2 % (11.5-15.5); WBC 13.1 k/uL (3.8-10.6)
--- NOTE | 2021-01-25 10:59 | P.PN ---
Subjective Patient is pleasant 80-year-old male with history of coronary artery disease status post CABG and recent PCI 09/2020, hypertension, hyperlipidemia, GERD who follows in the office with Dr. Dumont. He initially had been having chest discomfort in September when he was cutting the grass and felt very diaphoretic and was found to have non-STEMI and underwent cardiac catheterization with stenting of the SVG to diagonal branch. Patient presented to the emergency department with right lower quadrant abdominal pain which radiated all the way up his chest into his right jaw. He also had some mild dyspnea with exertion. troponin negative 3. pro BNP 977. A CT thorax was performed which showed no PE, moderate to large right pleural effusion and suggestion of mild pulmonary vascular congestion. EKG showed sinus rhythm with LVH and nonspecific ST, T-wave abnormalities. Patient seen at bedside, no acute distress. He denies any further chest pain. He states his abdominal pain is controlled. He denies any shortness of breath. He is currently maintained on IV Lasix 20 mg BID, aspirin 80 mg daily, atenolol 50 mg daily, atorvastatin 80 mg nightly, Plavix 75 mg daily, lisinopril 5 mg daily. BMP labs today are pending. PHYSICAL EXAMINATION Vital signs reviewed. CONSTITUTIONAL: No apparent distress. HEENT: Neck Supple no JVD CHEST EXAMINATION: Lungs are clear to auscultation. Decreased breath sounds on the right HEART EXAMINATION: Regular rate and rhythm. S1, S2 heard. No murmurs, gallops or rub. ABDOMEN: Soft, nontender. Positive bowel sounds. EXTREMITIES: 2+ peripheral pulses, no lower extremity edema and no calf tenderness. NEUROLOGIC EXAMINATION: Patient is awake, alert and oriented x3. ASSESSMENT Atypical chest pain, appears more related to right lower quadrant abdominal pain Moderate right pleural effusion Coronary artery disease with history of prior CABG, recent PCI 09/2020 Hypertension Hyperlipidemia PLAN Patient's chest pain appears atypical. It appears he mainly presented with more abdominal pain however was found to have a moderate sized pleural effusion. No obvious heart failure. We will stop IV Lasix 2D echocardiograom ordered, if no acute findings on echocardiogram, no further inpatient workup from a cardiology perspective. Follow up outpatient with Dr. Dumont. Objective - Vital Signs Vital signs: Vital Signs Temp 98.1 F 01/25/21 07:20 Pulse 73 01/25/21 07:20 Resp 18 01/25/21 07:20 BP 103/64 01/25/21 07:20 Pulse Ox 97 01/25/21 07:20 Intake & Output 01/24/21 01/25/21 01/25/21 18:59 06:59 18:59 Weight 104.326 kg Other: Voiding Method Toilet # Voids 2 - Labs CBC & Chem 7: 01/25/21 09:13 01/24/21 04:10 Labs: Abnormal Lab Results - Last 24 Hours (Table) 01/25/21 Range/Units 09:13 WBC 13.1 H (3.8-10.6) k/uL Neutrophils # 8.7 H (1.3-7.7) k/uL Monocytes # 1.1 H (0-1.0) k/uL
--- NOTE | 2021-01-25 11:09 | P.GSCN ---
<Salena Lzoa - Last Filed: 01/25/21 10:54> History of Present Illness Consult date: 01/25/21 History of present illness: CHIEF COMPLAINT: Abdominal pain HISTORY OF PRESENT ILLNESS: This is a 80-year-old male who presented to the hospital with complaints of right-sided abdominal pain. He describes the pain as sharp and intermittent. He reports he's had the pain for about 2 months. Patient has had back surgery on L5 spine about 1-2 months ago. Patient reports that he was told that he would have pain on his side after surgery. However, he reports that the pain has not improved. Pain is worse with taking a deep breath. Patient does report having hard stools with liquidy stools. Occasionally he has small amount of bright red blood in his stools. It has been a few days since he is seen any blood in the stools. He has a history of CABG and coronary artery disease with stents placed in September 2020 and is currently on Plavix. He denies any fevers chills or sweats. Denies any nausea or vomiting. He has a prior history of cholecystectomy. Patient did receive IV Lasix for his pleural effusion. Seen by cardiology and pulmonary service. Cardiology discontinued IV Lasix. PAST MEDICAL HISTORY: Leukemia, hyperlipidemia, hypertension, osteoarthritis, GERD, shingles PAST SURGICAL HISTORY: Back Surgery, Cholecystectomy, Coronary Bypass/CABG, Tonsillectomy, hernia repair MEDICATIONS: See list. ALLERGIES: See list. SOCIAL HISTORY: No illicit drug use. REVIEW OF SYSTEMS: CONSTITUTIONAL: Denies fever or chills. HEENT: Denies blurred vision, vision changes, or eye pain. Denies hemoptysis CARDIOVASCULAR: Denies chest pain or pressure. RESPIRATORY: No shortness of breath. GASTROINTESTINAL: See HPI for pertinent findings HEMATOLOGIC: Denies bleeding disorders. GENITOURINARY: Denies any blood in urine or increased urinary frequency. SKIN: Denies pruitis. Denies rash. PHYSICAL EXAM: VITAL SIGNS: Reviewed GENERAL: Well-developed in no acute distress. HEENT: No sclera icterus. Extraocular movements grossly intact. Moist buccal mucosa. Head is atraumatic, normocephalic. No nasal drainage. ABDOMEN: Soft. Obese. Nondistended. Tenderness with palpation right upper quadrant and flank area NEUROLOGIC: Alert and oriented. Cranial nerves II through XII grossly intact. LABORATORY DATA: WBC 12.6 up to 13.1 hemoglobin 13.9 platelets 391 INR 0.9 D-dimer 2.49 Sodium 132 potassium 4.2 BUN 16 creatinine 0.65 LFTs normal Troponin negative BNP 977 Lipase 29 COVID-19 not detected IMAGING: Chest CTA no evidence of pulmonary embolism. Moderate to large right pleural effusion. Suggest an of mild pulmonary vascular congestion with moderate to marked cardiomegaly Chest ultrasound minimal pleural fluid on the left and a very small right-sided pleural effusion KUB x-ray pleural reaction at the right lung base. Nonactive bowel gas pattern. ASSESSMENT: 1. Right upper quadrant abdominal pain and flank pain 2. Leukocytosis PLAN: -Further recommendations forthcoming per surgeon -Continue heart healthy diet -Continue pain medications as needed Thank you for this consultation Physician Fork Repairer note has been reviewed by physician. Signing provider agrees with the documented findings, assessment, and plan of care. 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, etc) History of Any Multi-Drug Resistant Organisms: None Reported Past Surgical History: Back Surgery, Cholecystectomy, Coronary Bypass/CABG, Tonsillectomy Additional Past Surgical History / Comment(s): hernia repair, Past Anesthesia/Blood Transfusion Reactions: No Reported Reaction Past Psychological History: No Psychological Hx Reported Past Alcohol Use History: None Reported Past Drug Use History: None Reported Medications and Allergies Home Medications Medication Instructions Recorded Confirmed Type Enalapril Maleate 2.5 mg PO DAILY 01/04/14 01/24/21 History atenoloL 25 mg PO DAILY 01/04/14 01/24/21 History Phenytoin Sodium Extended 100 mg PO TID #90 cap 01/07/14 01/24/21 Rx [Dilantin] Thiamine [Vitamin B-1] 100 mg PO DAILY@1200 #30 tablet 01/07/14 01/24/21 Rx Folic Acid 0.8 mg PO DAILY 09/29/20 01/24/21 History Furosemide [Lasix] 10 mg PO DAILY 09/29/20 01/24/21 History HYDROcodone/APAP 5-325MG [[place] 1 tab PO BID PRN 09/29/20 01/24/21 History 5-325] Latanoprost/Pf [Latanoprost 0.005% 1 drop BOTH EYES HS 09/29/20 01/24/21 History Eye Drop] Multivitamins, Thera [Multivitamin 1 tab PO DAILY 09/29/20 01/24/21 History (formulary)] Pregabalin [Lyrica] 50 mg PO DAILY PRN 09/29/20 01/24/21 History Aspirin 81 mg PO DAILY chew 09/30/20 01/24/21 Rx Atorvastatin [Lipitor] 80 mg PO HS 30 Days #30 tab 10/01/20 01/24/21 Rx Clopidogrel [Plavix] 75 mg PO DAILY 90 Days #90 tab 10/01/20 01/24/21 Rx Nitroglycerin Sl Tabs [Nitrostat] 0.4 mg SUBLINGUAL Q5M PRN #30 tab 10/01/20 01/24/21 Rx Loperamide HCl [Imodium A-D] 2 mg PO DAILY 01/24/21 01/24/21 History Meloxicam [Mobic] 7.5 mg PO DAILY PRN 01/24/21 01/24/21 History Allergies Allergy/AdvReac Type Severity Reaction Status Date / Time Penicillins Allergy Rash/Hives Verified 01/24/21 07:57 red dye Allergy Anaphylaxis Verified 01/24/21 07:57 shellfish derived Allergy Anaphylaxis Verified 01/24/21 07:57 Surgical - Exam Vital Signs Temp Pulse Resp BP Pulse Ox 98.3 F 70 16 141/83 96 01/24/21 03:49 01/24/21 03:49 01/24/21 03:49 01/24/21 03:49 01/24/21 03:49 Results - Labs 01/25/21 09:13 01/24/21 04:10 Abnormal Lab Results - Last 24 Hours (Table) 01/25/21 Range/Units 09:13 WBC 13.1 H (3.8-10.6) k/uL Neutrophils # 8.7 H (1.3-7.7) k/uL Monocytes # 1.1 H (0-1.0) k/uL <Ashwin Albert - Last Filed: 01/25/21 11:43> History of Present Illness History of present illness: As above. Patient with pain right upper quadrant. Says it hurts with deep inspiration. Patient does have a pleural effusion on the right hand side. Etiology unclear. CAT scan chest did not show any inflammatory changes in the right upper quadrant. He had his gallbladder removed 15 years ago. Unclear whether pain is related to recent back surgery or a pulmonary process. Liver enzymes are normal. Ultrasound likely would not be very helpful. Per pulmonary's note patient had tenderness right lower quadrant yesterday. Patient currently pointing more to the upper quadrant. Given the discrepancy in history and exam Will order CT abdomen and pelvis at this time. Surgical - Exam Vital Signs Temp Pulse Resp BP Pulse Ox 98.3 F 70 16 141/83 96 01/24/21 03:49 01/24/21 03:49 01/24/21 03:49 01/24/21 03:49 01/24/21 03:49 Results - Labs 01/25/21 09:13 01/24/21 04:10 Abnormal Lab Results - Last 24 Hours (Table) 01/25/21 Range/Units 09:13 WBC 13.1 H (3.8-10.6) k/uL Neutrophils # 8.7 H (1.3-7.7) k/uL Monocytes # 1.1 H (0-1.0) k/uL
[2021-01-25] MEDS: THIAMINE 100 MG TAB PO SCH (12:14)
[2021-01-25] MEDS: PHENYTOIN SODIUM EXTENDED 100 MG CAP PO SCH ×3 (12:14→21:44)
[2021-01-25 12:44] LABS: African American GFR (CKD) >90 (>60 ml/min/1.73 sqM); Blood Urea Nitrogen 19 mg/dL (9-20); Non-African American GFR(CKD) 89 (>60 ml/min/1.73 sqM)
[2021-01-25] MEDS: IOPAMIDOL CONTRAST (ORAL USE) VIAL PO PRN ×2 (13:13→14:18)
[2021-01-25] MEDS: lisinopriL 5 MG TAB PO SCH (15:47)
--- NOTE | 2021-01-25 15:58 | P.PN ---
Subjective Progress Note Date: 01/25/21 This is a pleasant 80 years old female with past medical history of GERD, Hyperlipidemia, Osteoarthritis , shingles, h/o Coronary Bypass/CABG. With recent cardiac cath with successful angioplasty and stenting to venous graft to the conal branch on 09/29/2020. Possible previous history of leukemia Presents with a right sides pain doesn't increase with deep cough and deep driss th. For 2 days duration. He points to the right side of the chest and also to the right side of the abdomen and complained from tenderness on the right side in the abdomen as well. He states that he spends 10/10, like thrombin associated with cough but no phlegm and some dyspnea. Patient also complains from diarrhea for about a month, few times but could not specify how much. No vomiting. He has L5 puncheon of procedure about one month ago. No urinary symptoms or dysuria Denies smoking, alcohol or illicit drug Vitals are stable and patient is afebrile. He has chronic leukocytosis, currently 12.6 which is at baseline Sodium 132, rest of the BMP liver enzymes are unremarkable. Lipase normal at 29. Troponin 2 are negative at 0.012. Coronavirus not detected. EKG showing normal sinus rhythm at 65 with first-degree AV block and QTC 445. No significant ST-T changes D-dimer elevated 2.9. CTA of the chest showing no evidence of pulmonary embolism, moderate to large pleural effusion and sedation of mild pulmonary vascular congestion with cardiomegaly Chest ultrasound: Pleural effusion pulmonary team consulted Echocardiogram from 09/29/2020: Ejection fraction 45-50% 01/25/2021 Patient is seen and evaluated in follow-up this morning with no acute overnight issues. Patient has been evaluated by cardiology and pulmonary and continued on IV Lasix which has been discontinued. Patient continues with right lower quadrant abdominal pain and general surgery has been consulted and pending. Patient currently stating he feels hungry and has been nothing by mouth for possible cardiology intervention. 2-D echo was ordered and pending at this time. CT abdomen and pelvis with contrast has also been ordered for continued abdominal pain. Labs: White blood count is 13.1, hemoglobin is 13.9, platelets are 391, BUN is 19, creatinine is 0.71 Review of systems: Constitutional: No reports of fatigue, fever, or chills Cardiovascular: No reports of chest pain or palpitations Respiratory: No reports of shortness of breath or cough GI: No reports of nausea, vomiting, or diarrhea, reports right lower quadrant abdominal pain that is intermittent and non-provoked : No reports of dysuria or retention Neurovascular: No reports of weakness or numbness All medications have been reviewed Active Medications Hydrocodone Bitart/Acetaminophen (Hydrocodone/Apap 5-325mg 1 Each Tab) 1 each PO Q4H PRN PRN Reason: Pain Last Admin: 01/25/21 09:03 Dose: 1 each Documented by: Aspirin (Aspirin 81 Mg) 81 mg PO DAILY [facility] Last Admin: 01/25/21 08:56 Dose: 81 mg Documented by: Atenolol (Atenolol 25 Mg Tab) 25 mg PO DAILY [facility] Last Admin: 01/25/21 08:56 Dose: 25 mg Documented by: Atorvastatin Calcium (Atorvastatin 80 Mg Tab) 80 mg PO HS [facility] Last Admin: 01/24/21 21:38 Dose: 80 mg Documented by: Clopidogrel Bisulfate (Clopidogrel 75 Mg Tab) 75 mg PO DAILY [facility] Last Admin: 01/25/21 08:56 Dose: 75 mg Documented by: Famotidine (Famotidine 20 Mg Tab) 20 mg PO BID [facility] Last Admin: 01/25/21 08:56 Dose: 20 mg Documented by: Heparin Sodium (Porcine) (Heparin Sodium,Porcine/Pf 5,000 Unit/0.5 Ml Syringe) 5,000 unit SQ Q12HR [facility] Last Admin: 01/25/21 08:56 Dose: 5,000 unit Documented by: Latanoprost (Latanoprost 0.005% Ophth Drops 2.5 Ml Btl) 1 drops [facility] Last Admin: 01/24/21 23:22 Dose: Not Given Documented by: Lisinopril (Lisinopril 5 Mg Tab) 5 mg PO DAILY [facility] Last Admin: 01/25/21 15:47 Dose: Not Given Documented by: Multivitamins (Multivitamins, Thera 1 Each Tab) 1 each PO DAILY [facility] Last Admin: 01/25/21 08:56 Dose: 1 each Documented by: Naloxone HCl (Naloxone 0.4 Mg/Ml 1 Ml Vial) 0.2 mg IV Q2M PRN PRN Reason: Opioid Reversal Nitroglycerin (Nitroglycerin Sl Tabs 0.4 Mg Tab) 0.4 mg SUBLINGUAL Q5M PRN PRN Reason: Chest Pain Phenytoin Sodium (Phenytoin Sodium Extended 100 Mg Cap) 100 mg PO TID [facility] Last Admin: 01/25/21 12:14 Dose: 100 mg Documented by: Pregabalin (Pregabalin 50 Mg Cap) 50 mg PO DAILY PRN PRN Reason: Pain Thiamine HCl (Thiamine 100 Mg Tab) 100 mg PO DAILY@1200 [facility] Last Admin: 01/25/21 12:14 Dose: 100 mg Documented by: Physical exam: GENERAL: The patient is alert and oriented x3, not in any acute distress. Well developed, well nourished. HEENT: Pupils are round and equally reacting to light. EOMI. No scleral icterus. No conjunctival pallor. Normocephalic, atraumatic. No pharyngeal erythema. No thyromegaly. CARDIOVASCULAR: S1 and S2 present. No murmurs, rubs, or gallops. PULMONARY: Chest is clear to auscultation, no wheezing or crackles. ABDOMEN: Soft, nontender, nondistended, normoactive bowel sounds. No palpable organomegaly. MUSCULOSKELETAL: No joint swelling or deformity. EXTREMITIES: No cyanosis, clubbing, or pedal edema. NEUROLOGICAL: Gross neurological examination did not reveal any focal deficits. SKIN: No rashes. No petechiae Assessment: Right sided pain With right more than left pleural effusion Possible acute on chronic systolic CHF with ejection fraction 45-50% History of coronary artery disease status post CABG with recent PCI to the venous stent 4 months ago Chronic leukocytosis with possible history of leukemia Hypertension History of GERD History of osteoarthritis DVT prophylaxis: Subcutaneous heparin GI prophylaxis: Pepcid Full code Plan: Recommend to continue current medications and management. Patient was maintained on IV Lasix which has been discontinued cardiology and pulmonary following closely. No plans for thoracentesis per pulmonary. Patient continues with right lower quadrant abdominal pain and underwent KUB which shows bowel gas pattern is normal with no sign of intestinal obstruction or pneumoperitoneum with the fecal pattern being normal with no evidence of a mass along with pleural reaction at the right lung base with a nonacute bowel gas pattern. General surgery has been consulted and CT abdomen is ordered and pending. 2-D echo was also ordered is currently pending at this time. Will have PT/OT evaluate the patient and advance diet as tolerated per surgery recommendations. Due to multiple complex medical issues, prognosis is guarded. Further recommendations to follow based on the clinical course of the patient. Objective - Vital Signs Vital signs: Vital Signs Temp 98.1 F 01/25/21 07:20 Pulse 73 01/25/21 07:20 Resp 18 01/25/21 07:20 BP 103/64 01/25/21 07:20 Pulse Ox 97 01/25/21 07:20 Intake & Output 01/24/21 01/25/21 01/25/21 18:59 06:59 18:59 Weight 104.326 kg Other: Voiding Method Toilet # Voids 2 - Labs CBC & Chem 7: 01/25/21 09:13 01/25/21 09:13 Labs: Abnormal Lab Results - Last 24 Hours (Table) 01/25/21 Range/Units 09:13 WBC 13.1 H (3.8-10.6) k/uL Neutrophils # 8.7 H (1.3-7.7) k/uL Monocytes # 1.1 H (0-1.0) k/uL
--- NOTE | 2021-01-25 16:16 | CT ---
EXAMINATION TYPE: CT abdomen pelvis w con DATE OF EXAM: 01/25/2021 COMPARISON: Abdominal x-ray and CTA chest from yesterday HISTORY: RLQ pain CT DLP: 3712 mGycm, Automated Exposure Control for Dose Reduction was Utilized. CONTRAST: CT scan of the abdomen and pelvis is performed with oral and with IV Contrast, patient injected with 100 mL of Isovue 300. FINDINGS: LUNG BASES: Persistent small right pleural effusion. Persistent cardiomegaly with coronary artery ward cification and/or stents. LIVER/GB: Cholecystectomy clips. PANCREAS: No significant abnormality is seen. SPLEEN: Scattered calcifications throughout the spleen. ADRENALS: No significant abnormality is seen. KIDNEYS: Symmetric cortical uptake and excretion without hydronephrosis seen bilaterally. A few scatt ered simple-appearing thin-walled cysts bilaterally are present upper pole level in both kidneys. Gonzalo dder not greatly distended with mild concentric wall thickening and trabeculation. Finding is presume d a product of BPH. BOWEL: Persistent small size hiatal hernia. Wandering cecum into the right upper quadrant. Oral cont rast reaches level of the mid transverse colon. Oral contrast has passed through the stomach which is poorly distended and thus suboptimally evaluated. No suspicious small or large bowel dilatation is s een. PROSTATE/SEMINAL VESICLES: Prostate gland likely mildly enlarged in size bulging on the bladder base. LYMPH NODES: No greater than 1cm abdominal or pelvic lymph nodes are appreciated. OSSEOUS STRUCTURES: Underlying scoliosis. Vacuum disc phenomenon with moderate disc space narrowing L 5-S1 level. Moderate axial joint space loss in both hips. Multilevel spinous process hypertrophy. OTHER: Moderate calcified plaque of the aorta extends into branch vessels. Small to moderate-sized fa t-containing left inguinal hernia. Surgical clips bilateral groin region. IMPRESSION: No significant acute finding is seen to account for patient's clinical symptoms of righ t lower quadrant pain.
[2021-01-25] MEDS: ATORVASTATIN 80 MG TAB PO SCH (21:44)
[2021-01-25] MEDS: LATANOPROST 0.005% OPHTH DROPS 2.5 ML BTL BOTH EYES SCH (21:44)
--- NOTE | 2021-01-26 07:33 | ECHOF ---
Referral Reason:re: CHF MEASUREMENTS -------- HEIGHT: 172.7 cm WEIGHT: 104.3 kg BP: RVIDd: 3.6 cm (< 3.3) IVSd: 1.1 cm (0.6 - 1.1) LVIDd: 5.0 cm (3.9 - 5.3) LVPWd: 0.9 cm (0.6 - 1.1) IVSs: 1.8 cm LVIDs: 3.5 cm LVPWs: 1.6 cm Ao Diam: 3.6 cm (2.0 - 3.7) AV Cusp: 2.0 cm (1.5 - 2.6) LA Diam: 3.6 cm (2.7 - 3.8) MV EXCURSION: 8.330 mm (> 18.000) MV EF SLOPE: 35 mm/s (70 - 150) EPSS: 1.0 cm MV E Can: 0.50 m/s MV DecT: 352 ms MV A Can: 0.94 m/s MV E/A Ratio: 0.53 AV maxP.61 mmHg AV meanP.89 mmHg AR PHT: 1285 ms RAP: 5.00 mmHg RVSP: 25.57 mmHg FINDINGS -------- Sinus rhythm. This was a technically difficult study with suboptimal views. The left ventricular size is normal. Left ventricular wall thickness is normal. Overall left vent ricular systolic function is mild-moderately impaired with, an EF between 40 - 45 %. Basal lateral LV wall motion is hypokinetic. Basal inferior LV wall motion is hypokinetic. Basal inferoseptal LV wall motion is hypokinetic. Mid inferior LV wall motion is hypokinetic. The right ventricle is mildly enlarged. The left atrial size is normal. The right atrial size is normal. Lumason used There is moderate aortic valve sclerosis. There is mild aortic regurgitation. There is mild aorti c stenosis present. Peak/mean gradient across the Aortic Valve is 13.61mmHg / 9.89mmHg. The mitral valve leaflets are mildly thickened. Mild mitral regurgitation is present. The tricuspid valve appears structurally normal. Mild tricuspid regurgitation present. Right vent ricular systolic pressure is normal at < 35 mmHg. There is no pulmonic regurgitation present. The aortic root size is normal. IVC Not well visulized. There is no pericardial effusion. CONCLUSIONS -------- 1. This was a technically difficult study with suboptimal views. 2. Left ventricular wall thickness is normal. 3. Overall left ventricular systolic function is mild-moderately impaired with, an EF between 40 - 45 %. 4. Basal lateral LV wall motion is hypokinetic. 5. Basal inferior LV wall motion is hypokinetic. 6. Basal inferoseptal LV wall motion is hypokinetic. 7. Mid inferior LV wall motion is hypokinetic. 8. The right ventricle is mildly enlarged. 9. There is moderate aortic valve sclerosis. 10. There is mild aortic regurgitation. 11. There is mild aortic stenosis present. 12. Peak/mean gradient across the Aortic Valve is 13.61mmHg / 9.89mmHg. 13. The mitral valve leaflets are mildly thickened. 14. Mild mitral regurgitation is present. 15. Mild tricuspid regurgitation present. 16. There is no pericardial effusion. NAT INSTRUCTOR: Katie Snider RDCS
[2021-01-26] MEDS: lisinopriL 5 MG TAB PO SCH (09:11)
[2021-01-26] MEDS: FAMOTIDINE 20 MG TAB PO SCH (09:11)
[2021-01-26] MEDS: atenoloL 25 MG TAB PO SCH (09:11)
[2021-01-26] MEDS: MULTIVITAMINS, THERA 1 EACH TAB PO SCH (09:11)
[2021-01-26] MEDS: CLOPIDOGREL 75 MG TAB PO SCH (09:11)
[2021-01-26] MEDS: PHENYTOIN SODIUM EXTENDED 100 MG CAP PO SCH (09:11)
[2021-01-26] MEDS: ASPIRIN 81 MG PO SCH (09:11)
[2021-01-26] MEDS: HEPARIN SODIUM,PORCINE/PF 5,000 UNIT/0.5 ML SYRINGE SQ SCH (09:17)
[2021-01-26 09:21] LABS: Basophils # (A) 0.1 k/uL (0-0.2); Basophils % (A) 1 %; Eosinophils # (A) 0.6 k/uL (0-0.7); Eosinophils % (A) 5 %; HCT 43.1 % (39.0-53.0); Lymphocytes # (A) 2.5 k/uL (1.0-4.8); Lymphocytes % (A) 21 %; MCHC 32.6 g/dL (31.0-37.0); Mean Platelet Volume 7.7; Monocytes # (A) 0.8 k/uL (0-1.0); Monocytes % (A) 7 %; Neutrophils # (A) 7.9 k/uL (1.3-7.7); Neutrophils % (A) 65 %; Platelet Count 416 k/uL (150-450); RBC 4.84 m/uL (4.30-5.90); RDW 13.1 % (11.5-15.5)
[2021-01-26 09:29] LABS: African American GFR (CKD) >90 (>60 ml/min/1.73 sqM); Anion Gap 11 mmol/L; Blood Urea Nitrogen 16 mg/dL (9-20); Calcium 9.2 mg/dL (8.4-10.2); Carbon Dioxide 20 mmol/L (22-30); Chloride 102 mmol/L (98-107); Glucose 108 mg/dL (74-99); Non-African American GFR(CKD) >90 (>60 ml/min/1.73 sqM); Sodium 133 mmol/L (137-145)
[2021-01-26 09:40] LABS: Potassium 4.8 mmol/L (3.5-5.1)
--- NOTE | 2021-01-26 09:52 | P.PN ---
Subjective Patient is pleasant 80-year-old male with history of coronary artery disease status post CABG and recent PCI 09/2020, hypertension, hyperlipidemia, GERD who follows in the office with Dr. Dumont. He initially had been having chest discomfort in September when he was cutting the grass and felt very diaphoretic and was found to have non-STEMI and underwent cardiac catheterization with stenting of the SVG to diagonal branch. Patient presented to the emergency department with right lower quadrant abdominal pain which radiated all the way up his chest into his right jaw. He also had some mild dyspnea with exertion. troponin negative 3. pro BNP 977. A CT thorax was performed which showed no PE, moderate to large right pleural effusion and suggestion of mild pulmonary vascular congestion. EKG showed sinus rhythm with LVH and nonspecific ST, T-wave abnormalities. Patient seen at bedside, no acute distress. He denies any further chest pain. He states his abdominal pain is controlled. He denies any shortness of breath. He is currently maintained on aspirin 80 mg daily, atenolol 50 mg daily, atorvastatin 80 mg nightly, Plavix 75 mg daily, lisinopril 5 mg daily. Labs reviewed WBC 12, hemoglobin 14, platelets 416, sodium 133, potassium 4.8, BUN 16, serum creatinine 0.6. Echocardiogram revealed EF of 4045 percent, basal lateral, basal inferior, basal inferior septal, mid inferior LV wall hypokinetic, mild aortic stenosis with a peak/mean gradient of 13 mmHg/10 mmHg, mild regurgitation, mild mitral and mild tricuspid regurgitation. Patient's prior EF was 45-50%. PHYSICAL EXAMINATION Vital signs reviewed. CONSTITUTIONAL: No apparent distress. HEENT: Neck Supple no JVD CHEST EXAMINATION: Lungs are clear to auscultation. Decreased breath sounds on the right HEART EXAMINATION: Regular rate and rhythm. S1, S2 heard. No murmurs, gallops or rub. ABDOMEN: Soft, nontender. Positive bowel sounds. EXTREMITIES: 2+ peripheral pulses, no lower extremity edema and no calf tenderness. NEUROLOGIC EXAMINATION: Patient is awake, alert and oriented x3. ASSESSMENT Atypical chest pain, appears more related to right lower quadrant abdominal pain Moderate right pleural effusion Coronary artery disease with history of prior CABG, recent PCI 09/2020 Hypertension Hyperlipidemia PLAN Patient's chest pain appears atypical. It appears he mainly presented with more abdominal pain however was found to have a moderate sized pleural effusion. No obvious heart failure. 2D echocardiogram completed with no significant changes from prior, no further inpatient workup from a cardiology perspective. We will follow the patient as needed. Please reach out with any further questions or concerns. Follow up outpatient with Dr. Dumont. Objective - Vital Signs Vital signs: Vital Signs Temp 98.4 F 01/26/21 07:18 Pulse 78 01/26/21 07:18 Resp 16 01/26/21 07:18 BP 145/76 01/26/21 07:18 Pulse Ox 96 01/26/21 07:18 Intake & Output 01/25/21 01/26/21 01/26/21 18:59 06:59 18:59 Intake Total 600 Balance 600 Intake: Oral 600 Other: Voiding Method Toilet # Voids 1 3 - Labs CBC & Chem 7: 01/26/21 08:45 01/26/21 08:45 Labs: Abnormal Lab Results - Last 24 Hours (Table) 01/25/21 Range/Units 09:13 WBC 13.1 H (3.8-10.6) k/uL Neutrophils # 8.7 H (1.3-7.7) k/uL Monocytes # 1.1 H (0-1.0) k/uL
--- NOTE | 2021-01-26 11:48 | P.PN ---
<SoniaSalena ibarra - Last Filed: 01/26/21 12:00> Subjective Progress Note Date: 01/26/21 CHIEF COMPLAINT: Abdominal pain HISTORY OF PRESENT ILLNESS: Patient still complains of right upper quadrant and flank pain that is intermittent. He reports the pain comes it is severe. He did have a hard bowel movement. No blood reported in the stools. He is tolerating diet. Afebrile. WBC 12 Hgb 14 platelets 416 sodium 133 creatinine 0.65 Computed tomography scan abdomen and pelvis with oral and IV contrast demonstrating no significant acute finding is seen to cover patient's clinical symptoms of right lower quadrant pain. Did mention a wandering cecum in the right upper quadrant. PHYSICAL EXAM: VITAL SIGNS: Reviewed. GENERAL: Well-developed in no acute distress. HEENT: No sclera icterus. Extraocular movements grossly intact. Moist buccal mucosa. Head is atraumatic, normocephalic. ABDOMEN: Soft. Nondistended. Decrease Tenderness with palpation of right upper quadrant and flank area NEUROLOGIC: Alert and oriented. Cranial nerves II through XII grossly intact. ASSESSMENT: 1. Right upper quadrant abdominal pain and flank pain possibly related to recent back surgery or a pulmonary process, patient does have small persistent right pleural effusion 2. Leukocytosis 3. History of cholecystectomy PLAN: -No surgical intervention planned -Continue supportive care -Continue heart healthy diet -Continue pain medications as needed Physician Siebel Solution Architect note has been reviewed by physician. Signing provider agrees with the documented findings, assessment, and plan of care. Objective - Vital Signs Vital signs: Vital Signs Temp 98.4 F 01/26/21 07:18 Pulse 55 L 01/26/21 11:23 Resp 16 01/26/21 11:23 BP 104/64 01/26/21 11:23 Pulse Ox 96 01/26/21 11:23 Intake & Output 01/25/21 01/26/21 01/26/21 18:59 06:59 18:59 Intake Total 600 120 Balance 600 120 Intake: Oral 600 120 Other: Voiding Method Toilet # Voids 1 3 1 # Bowel Movements 0 - Labs CBC & Chem 7: 01/26/21 08:45 01/26/21 08:45 Labs: Abnormal Lab Results - Last 24 Hours (Table) 01/26/21 01/26/21 Range/Units 08:45 08:45 WBC 12.0 H (3.8-10.6) k/uL Neutrophils # 7.9 H (1.3-7.7) k/uL Sodium 133 L (137-145) mmol/L Carbon Dioxide 20 L (22-30) mmol/L Creatinine 0.65 L (0.66-1.25) mg/dL Glucose 108 H (74-99) mg/dL <Ashwin Albert - Last Filed: 01/26/21 15:55> Subjective As above. Patient says his pain is improved. Remains intermittent in nature. CAT scan reviewed. No intra-abdominal findings to explain the discomfort in the right upper and lower quadrants. Suspect pleuritic source of pain for right upper quadrant. No further intervention planned at this time. Patient can follow-up in the office if pain persists. Objective - Vital Signs Vital signs: Vital Signs Temp 97.9 F 01/26/21 13:22 Pulse 57 L 01/26/21 13:22 Resp 18 01/26/21 13:22 BP 135/72 01/26/21 13:22 Pulse Ox 99 01/26/21 13:22 Intake & Output 01/25/21 01/26/21 01/26/21 18:59 06:59 18:59 Intake Total 600 240 Balance 600 240 Intake: Oral 600 240 Other: Voiding Method Toilet # Voids 1 3 1 # Bowel Movements 0 - Labs CBC & Chem 7: 01/26/21 08:45 01/26/21 08:45 Labs: Abnormal Lab Results - Last 24 Hours (Table) 01/26/21 01/26/21 Range/Units 08:45 08:45 WBC 12.0 H (3.8-10.6) k/uL Neutrophils # 7.9 H (1.3-7.7) k/uL Sodium 133 L (137-145) mmol/L Carbon Dioxide 20 L (22-30) mmol/L Creatinine 0.65 L (0.66-1.25) mg/dL Glucose 108 H (74-99) mg/dL
[2021-01-26] MEDS: THIAMINE 100 MG TAB PO SCH (13:12)
[2021-01-26 13:24] VITALS: BP 135/72; PULSE 57; RESP 18; TEMP 97.9
--- NOTE | 2021-01-28 04:18 | P.DS ---
Providers Date of admission: 01/24/21 07:53 Expected date of discharge: 01/26/21 Attending physician: Ryan Polanco MD Consults: 01/24/21 07:36 Consult Physician Routine Consulting Provider: Lawrence Childress Consult Reason/Comments: Right pleural effusion Do you want consulting provider notified?: Yes 01/24/21 13:19 Consult Physician Urgent Consulting Provider: Ashwin Albert Consult Reason/Comments: abd pain Do you want consulting provider notified?: Yes Primary care physician: Sky Lara [facility] Course: Final Diagnosis Right sided pain With right more than left pleural effusion wandering cecum as noted on CT of the abdomen Possible acute on chronic systolic CHF with ejection fraction 45-50% History of coronary artery disease status post CABG with recent PCI to the venous stent 4 months ago Chronic leukocytosis with possible history of leukemia Hypertension History of GERD History of osteoarthritis DVT prophylaxis GI prophylaxis Full code Discharge disposition Patient is being discharged in a stable condition with guarded prognosis to home. Patient will follow-up with Dr. Lara in the outpatient setting upon discharge. Patient is to follow-up cardiology and GI in the outpatient setting. Total time taken is greater than 35 minutes. Hospital course This is a pleasant 80 years old female with past medical history of GERD, Hyperlipidemia, Osteoarthritis , shingles, h/o Coronary Bypass/CABG. With recent cardiac cath with successful angioplasty and stenting to venous graft to the conal branch on 09/29/2020. Possible previous history of leukemia Presents with a right sides pain doesn't increase with deep cough and deep breath. For 2 days duration. He points to the right side of the chest and also to the right side of the abdomen and complained from tenderness on the right side in the abdomen as well. He states that he spends 10/10, like thrombin associated with cough but no phlegm and some dyspnea. Patient also complains from diarrhea for about a month, few times but could not specify how much. No vomiting. He has L5 puncheon of procedure about one month ago. No urinary symptoms or dysuria Denies smoking, alcohol or illicit drug Vitals are stable and patient is afebrile. He has chronic leukocytosis, currently 12.6 which is at baseline Sodium 132, rest of the BMP liver enzymes are unremarkable. Lipase normal at 29. Troponin 2 are negative at 0.012. Coronavirus not detected. EKG showing normal sinus rhythm at 65 with first-degree AV block and QTC 445. No significant ST-T changes D-dimer elevated 2.9. CTA of the chest showing no evidence of pulmonary embolism, moderate to large pleural effusion and sedation of mild pulmonary vascular congestion with cardiomegaly Chest ultrasound: Pleural effusion pulmonary team consulted Echocardiogram from 09/29/2020: Ejection fraction 45-50% 01/25/2021 Patient is seen and evaluated in follow-up this morning with no acute overnight issues. Patient has been evaluated by cardiology and pulmonary and continued on IV Lasix which has been discontinued. Patient continues with right lower quadrant abdominal pain and general surgery has been consulted and pending. Patient currently stating he feels hungry and has been nothing by mouth for possible cardiology intervention. 2-D echo was ordered and pending at this time. CT abdomen and pelvis with contrast has also been ordered for continued abdominal pain. 01/26/2021 Patient is seen in follow up this morning with continued intermittent RLQ pain that he states has been ongoing for months and not precipitated by meals and occurs on occasion just randomly. Patient was evaluated by general surgery and no plans for endoscopic or surgical intervention and recommending outpatient follow up on discharge and continuing current medical management. Patient was evaluated by cardiology and will continue current medications and will follow up outpatient. CT abdomen noted no significant findings. Currently no reports of chest pain, shortness of breath, or palpitations. Patient is afebrile. No reports of nausea or vomiting and patient is tolerating diet. Patient will be discharged to home today. Guarded prognosis. Patient is sitting up in the bed comfortably, no acute distress, awake alert and oriented.. HEENT: Normocephalic. Neck is supple. Pupils reactive. Nostrils clear. Oral cavity is moist. Neck reveals no JVD, carotid bruits, or thyromegaly. CHEST EXAMINATION: Trachea is central. Symmetrical expansion. Diminished breath sounds bilaterally with no wheezing or rhonchi noted CARDIAC: Normal S1, S2 with no gallops. No murmurs ABDOMEN: Soft. Bowel sounds normal. No organomegaly. No abdominal bruits. Extremities: reveal no edema. No clubbing or cyanosis Neurologically awake, alert, oriented x3 with well-coordinated movements. No focal deficits noted Skin: No rash or skin lesions. Psychiatric: Cooperative. Non-suicidal Musculoskeletal: No joint swelling or deformity. Normal range of motion. Please refer to medication reconciliation sheet for a list of medications Patient Condition at Discharge: Fair Plan - Discharge Summary Discharge Rx Participant: No New Discharge Prescriptions: Continue atenoloL 25 mg PO DAILY Enalapril Maleate 2.5 mg PO DAILY Phenytoin Sodium Extended [Dilantin] 100 mg PO TID #90 cap Thiamine [Vitamin B-1] 100 mg PO DAILY@1200 #30 tablet Furosemide [Lasix] 10 mg PO DAILY Pregabalin [Lyrica] 50 mg PO DAILY PRN PRN Reason: Pain HYDROcodone/APAP 5-325MG [[place] 5-325] 1 tab PO BID PRN PRN Reason: Pain Nitroglycerin Sl Tabs [Nitrostat] 0.4 mg SUBLINGUAL Q5M PRN #30 tab PRN Reason: Chest Pain Meloxicam [Mobic] 7.5 mg PO DAILY PRN PRN Reason: Pain Loperamide HCl [Imodium A-D] 2 mg PO DAILY Latanoprost/Pf [Latanoprost 0.005% Eye Drop] 1 drop BOTH EYES HS Folic Acid 0.8 mg PO DAILY Multivitamins, Thera [Multivitamin (formulary)] 1 tab PO DAILY Aspirin 81 mg PO DAILY chew Atorvastatin [Lipitor] 80 mg PO HS 30 Days #30 tab Clopidogrel [Plavix] 75 mg PO DAILY 90 Days #90 tab Discharge Medication List Enalapril Maleate 2.5 mg PO DAILY 01/04/14 [History] atenoloL 25 mg PO DAILY 01/04/14 [History] Phenytoin Sodium Extended [Dilantin] 100 mg PO TID #90 cap 01/07/14 [Rx] Thiamine [Vitamin B-1] 100 mg PO DAILY@1200 #30 tablet 01/07/14 [Rx] Folic Acid 0.8 mg PO DAILY 09/29/20 [History] Furosemide [Lasix] 10 mg PO DAILY 09/29/20 [History] HYDROcodone/APAP 5-325MG [[place] 5-325] 1 tab PO BID PRN 09/29/20 [History] Latanoprost/Pf [Latanoprost 0.005% Eye Drop] 1 drop BOTH EYES HS 09/29/20 [History] Multivitamins, Thera [Multivitamin (formulary)] 1 tab PO DAILY 09/29/20 [History] Pregabalin [Lyrica] 50 mg PO DAILY PRN 09/29/20 [History] Aspirin 81 mg PO DAILY chew 09/30/20 [Rx] Atorvastatin [Lipitor] 80 mg PO HS 30 Days #30 tab 10/01/20 [Rx] Clopidogrel [Plavix] 75 mg PO DAILY 90 Days #90 tab 10/01/20 [Rx] Nitroglycerin Sl Tabs [Nitrostat] 0.4 mg SUBLINGUAL Q5M PRN #30 tab 10/01/20 [Rx] Loperamide HCl [Imodium A-D] 2 mg PO DAILY 01/24/21 [History] Meloxicam [Mobic] 7.5 mg PO DAILY PRN 01/24/21 [History] Follow up Appointment(s)/Referral(s): Sky Lara MD [Primary Care Provider] - 1-2 days (please call for an appointment ) Sarah Dumont MD [STAFF PHYSICIAN] - 04/15/21 1:45 pm (April 15 1:45pm at [address] Office is right in side the hospital. The Office has put you on the cancellation list also ) Darren Dumont MD [STAFF PHYSICIAN] - 02/09/21 3:00 pm (Appointment will be at [place] location.) Patient Instructions/Handouts: Pleural Effusion (GEN), Acute Abdominal Pain (GEN) Activity/Diet/Wound Care/Special Instructions: Activity Limited until follow-up Follow-up with primary care provider on discharge Follow-up with GI outpatient for possible EGD/colonoscopy Follow-up with cardiology outpatient Continue taking medications as prescribed Continue heart healthy diet Discharge Disposition: HOME SELF-CARE
== END 2021-01-26 15:38 | disposition home or self-care (01) ==
LOC: EC 03:45 → 6NMEDSUR 07:53
PROVIDERS: ADMIT Internal Medicine; ATTEND Internal Medicine
DX: J90 Pleural effusion, not elsewhere classified (principal); I25.810 Atherosclerosis of coronary artery bypass graft(s) without angina pectoris; I11.9 Hypertensive heart disease without heart failure; R79.89 Other specified abnormal findings of blood chemistry; R10.11 Right upper quadrant pain; R07.89 Other chest pain; I25.2 Old myocardial infarction; I49.3 Ventricular premature depolarization; I44.0 Atrioventricular block, first degree; I08.3 Combined rheumatic disorders of mitral, aortic and tricuspid valves; R10.31 Right lower quadrant pain; E78.5 Hyperlipidemia, unspecified; K21.9 Gastro-esophageal reflux disease without esophagitis; N28.1 Cyst of kidney, acquired; J98.11 Atelectasis; M19.90 Unspecified osteoarthritis, unspecified site; R19.7 Diarrhea, unspecified; D72.829 Elevated white blood cell count, unspecified; R09.89 Other specified symptoms and signs involving the circulatory and respiratory systems; K44.9 Diaphragmatic hernia without obstruction or gangrene; K40.90 Unilateral inguinal hernia, without obstruction or gangrene, not specified as recurrent; Z20.822 Contact with and (suspected) exposure to COVID-19; Z79.82 Long term (current) use of aspirin; Z79.1 Long term (current) use of non-steroidal anti-inflammatories (NSAID); Z79.02 Long term (current) use of antithrombotics/antiplatelets; Z79.899 Other long term (current) drug therapy; Z88.0 Allergy status to penicillin; Z91.013 Allergy to seafood; Z91.048 Other nonmedicinal substance allergy status; Z90.49 Acquired absence of other specified parts of digestive tract; Z95.1 Presence of aortocoronary bypass graft; Z98.890 Other specified postprocedural states; Z86.19 Personal history of other infectious and parasitic diseases; Z85.6 Personal history of leukemia; Z95.5 Presence of coronary angioplasty implant and graft; Z87.19 Personal history of other diseases of the digestive system
CPT/HCPCS: 96372 ×4; 96375; 96374; 99285; 36415; 93005; 85379; 83880; 80053; 80048; 82150; 82565; 83690; 83735; 84520; 84484; 85025 ×3; 85610; 85730; 87635; 71046; 74018; 76604; 71275; 74177; G0378 ×3; C8929; J2270; J1940; Q9950; Q9967; J1644 ×3; 93306

== ENCOUNTER 2023-05-05 00:55 | Inpatient (IN) | payer MEDICARE ==
[2023-05-05] MEDS: MORPHINE SULFATE 4 MG/ML SYRINGE IV STA (01:42)
[2023-05-05] MEDS: SODIUM CHLORIDE 0.9% 1,000 ML IV STA ×2 (01:43→02:02)
[2023-05-05] MEDS: ONDANSETRON 4 MG/2 ML VIAL IVP STA (01:43)
[2023-05-05] MEDS: HEPARIN SODIUM 1,000 UN/ML (10ML VL) IV ONE (01:48)
[2023-05-05 01:54] LABS: Basophils # (A) 0.1 k/uL (0-0.2); Basophils % (A) 0 %; Eosinophils # (A) 0.1 k/uL (0-0.7); Eosinophils % (A) 1 %; HCT 40.7 % (39.0-53.0); HGB 13.4 gm/dL (13.0-17.5); Lymphocytes # (A) 3.4 k/uL (1.0-4.8); Lymphocytes % (A) 20 %; MCH 29.4 pg (25.0-35.0); MCHC 32.8 g/dL (31.0-37.0); MCV 89.7 fL (80.0-100.0); Mean Platelet Volume 8.5; Monocytes # (A) 1.1 k/uL (0-1.0); Monocytes % (A) 6 %; Neutrophils # (A) 12.3 k/uL (1.3-7.7); Neutrophils % (A) 72 %; Platelet Count 323 k/uL (150-450); RBC 4.54 m/uL (4.30-5.90); RDW 13.5 % (11.5-15.5); WBC 17.2 k/uL (3.8-10.6)
[2023-05-05] MEDS: ASPIRIN 81 MG PO STA (01:55)
[2023-05-05] MEDS: SODIUM CHLORIDE 0.9% 500 ML 500 ML IV ONE (01:58)
[2023-05-05] MEDS: HEPARIN SOD,PORK IN 0.45% NACL 25,000 UNIT in 0.45% NACL 1 250ML.BAG IV SCH (02:04)
[2023-05-05 02:05] LABS: ALT 75 U/L (4-49); AST 291 U/L (17-59); African American GFR (CKD) >90 (>60 ml/min/1.73 sqM); Alkaline Phosphatase 90 U/L (38-126); Anion Gap 7 mmol/L; Blood Urea Nitrogen 33 mg/dL (9-20); Calcium 9.4 mg/dL (8.4-10.2); Carbon Dioxide 24 mmol/L (22-30); Chloride 104 mmol/L (98-107); Glucose 161 mg/dL (74-99); Magnesium 1.8 mg/dL (1.6-2.3); Non-African American GFR(CKD) >90 (>60 ml/min/1.73 sqM); Potassium 3.8 mmol/L (3.5-5.1); Sodium 135 mmol/L (137-145); Total Bilirubin 1.4 mg/dL (0.2-1.3)
--- NOTE | 2023-05-05 02:08 | ED ---
General Adult HPI - General Chief complaint: Weakness Stated complaint: rhabdomyolysis, fall, Time Seen by Provider: 05/05/23 01:05 Source: patient, EMS, RN notes reviewed, old records reviewed Mode of arrival: EMS Limitations: no limitations - History of Present Illness Initial comments: Patient is an 82-year-old male who presents emergency department complaining of a fall. He was transferred from [facility] for NSTEMI and rhabdomyolysis. Workup at the outside hospital unremarkable for any obvious traumatic injury. He did have a troponin of 14 with normal EKG and no active chest pain. He also has rhabdomyolysis with a creatinine kinase greater than 8000. He was started on gentle fluid hydration and transferred here for evaluation by cardiology as his road packer operator Dr. Bass is here. Unknown how long he was on the ground, did have a high school band teacher on 02 May so patient could have been on the ground since then. Endorses generalized bodyaches. States he had chest pain intermittently over the last few weeks. Last occurred prior to the fall. Lasted moments and self resolved. Currently has no chest pain and is not since being in the hospital. Has no other acute complaints at this time other than chronic abdominal pain as he does have a history of constipation. Presents for further evaluation at this time. Upper and was held at the outside facility over concern for the rhabdomyolysis and requested cardiology evaluation prior to initiating. - Related Data Home Medications Medication Instructions Recorded Confirmed Enalapril Maleate 2.5 mg PO DAILY 01/04/14 01/24/21 atenoloL 25 mg PO DAILY 01/04/14 01/24/21 Folic Acid 0.8 mg PO DAILY 09/29/20 01/24/21 Furosemide [Lasix] 10 mg PO DAILY 09/29/20 01/24/21 HYDROcodone/APAP 5-325MG [[place] 1 tab PO BID PRN 09/29/20 01/24/21 5-325] Latanoprost/Pf [Latanoprost 0.005% 1 drop BOTH EYES HS 09/29/20 01/24/21 Eye Drop] Multivitamins, Thera [Multivitamin 1 tab PO DAILY 09/29/20 01/24/21 (formulary)] Pregabalin [Lyrica] 50 mg PO DAILY PRN 09/29/20 01/24/21 Loperamide HCl [Imodium A-D] 2 mg PO DAILY 01/24/21 01/24/21 Meloxicam [Mobic] 7.5 mg PO DAILY PRN 01/24/21 01/24/21 Previous Rx's Medication Instructions Recorded Phenytoin Sodium Extended 100 mg PO TID #90 cap 01/07/14 [Dilantin] Thiamine [Vitamin B-1] 100 mg PO DAILY@1200 #30 tablet 01/07/14 Aspirin 81 mg PO DAILY chew 09/30/20 Atorvastatin [Lipitor] 80 mg PO HS 30 Days #30 tab 10/01/20 Clopidogrel [Plavix] 75 mg PO DAILY 90 Days #90 tab 10/01/20 Nitroglycerin Sl Tabs [Nitrostat] 0.4 mg SUBLINGUAL Q5M PRN #30 tab 10/01/20 Allergies Allergy/AdvReac Type Severity Reaction Status Date / Time Penicillins Allergy Rash/Hives Verified 01/24/21 07:57 red dye Allergy Anaphylaxis Verified 01/24/21 07:57 shellfish derived Allergy Anaphylaxis Verified 01/24/21 07:57 Review of Systems ROS Statement: Those systems with pertinent positive or pertinent negative responses have been documented in the HPI. Review of Systems: CONST: Denies fever EYES: Denies blurry vision ENT: Denies nasal congestion C/V: Denies Chest pain RESP: Denies shortness of breath GI: Endorses chronic abdominal discomfort : Denies dysuria SKIN: Denies rash. MSK: Endorses generalized bodyaches NEURO: Denies headache ROS Other: All systems not noted in ROS Statement are negative. 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, etc) History of Any Multi-Drug Resistant Organisms: None Reported Past Surgical History: Back Surgery, Cholecystectomy, Coronary Bypass/CABG, Tonsillectomy Additional Past Surgical History / Comment(s): hernia repair, Past Anesthesia/Blood Transfusion Reactions: No Reported Reaction Past Psychological History: No Psychological Hx Reported Smoking Status: Former smoker Past Alcohol Use History: None Reported Past Drug Use History: None Reported General Exam - General Exam Comments Initial Comments: General: Appears in no acute distress. HEAD: Normal with no signs of head trauma. Various abrasions over the face. EYES: PERRLA, EOMI, conjunctiva normal, no discharge. Pupils 3 mm and equal bilaterally. ENT: Hearing grossly intact, normal oropharynx. RESPIRATORY: Clear breath sounds bilaterally. No wheezes, rales, or rhonchi. C/V: Regular rate and rhythm. S1 and S2 auscultated, no edema, peripheral pulses 2+ and intact throughout ABD: Abdomen is soft, minimally distended. Patient states he has chronic abdominal pain and history of chronic constipation. Feels like he needs to go at this time. No guarding. No rebound tenderness. No peritoneal signs. EXT: Normal range of motion, no obvious deformity. Pelvis is stable. No significant midline cervical, thoracic, lumbar spine tenderness to palpation. SKIN: Multiple abrasions over the patient's face and other extremities. NEURO: Alert and oriented x 4. Cranial nerves II-XII intact. No focal sensory or strength deficits. GCS of 15. Limitations: no limitations Course Vital Signs 05/05/23 05/05/23 00:57 02:07 Temperature 98.5 F Pulse Rate 97 95 Respiratory 22 16 Rate Blood Pressure 125/72 130/84 O2 Sat by Pulse 97 95 Oximetry Medical Decision Making - Medical Decision Making Was pt. sent in by a medical professional or institution (, PA, SEEING EYE DOG TRAINER, urgent care, hospital, or senior living...) When possible be specific @ -Transferred from [facility] for NSTEMI and rhabdomyolysis status post fall Did you speak to anyone other than the patient for history (EMS, parent, family, police, friend...)? What history was obtained from this source @ -No Did you review nursing and triage notes (agree or disagree)? Why? @ -I reviewed and agree with nursing and triage notes Were old charts reviewed (outside hosp., previous admission, EMS record, old EKG, old radiological studies, urgent care reports/EKG's, senior living records)? Report findings @ -Old charts reviewed Differential Diagnosis (chest pain, altered mental status, abdominal pain women, abdominal pain men, vaginal bleeding, weakness, fever, dyspnea, syncope, headache, dizziness, GI bleed, back pain, seizure, CVA, palpatations, mental health, musculoskeletal)? @ -Differential Weakness: Hypoglycemia, shock, sepsis, hyponatremia, anemia, infection, SC, ETOH, adverse medicine reaction, overdose, stroke, this is not meant to be an all-inclusive list. EKG interpreted by me (3pts min.). @ -As above X-rays interpreted by me (1pt min.). @ -Chest x-ray reveals no obvious significant pulm vascular congestion. CT interpreted by me (1pt min.). @ -None done U/S interpreted by me (1pt. min.). @ -None done What testing was considered but not performed or refused? (CT, X-rays, U/S, labs)? Why? @ -CT imaging already obtained at outside hospital. What meds were considered but not given or refused? Why? @ -None Did you discuss the management of the patient with other professionals (professionals i.e. Dr., PA, SEEING EYE DOG TRAINER, lab, RT, psych nurse, long term care social worker, casing running machine tender, teacher, supervisor dog license officer, case worker)? Give summary @ -Upon arrival, I discussed the patient with the on-call road packer operator Dr. Arechiga. Patient has not yet been started on heparin or given aspirin for his NSTEMI. He was in agreement with the plan for initiating aspirin and heparin as the patient had negative CT brain and CT imaging for any evidence of acute bleed. Was otherwise in agreement with monitoring troponin. Discussed that patient has no active chest pain at this time and he states cardiology will evaluate the patient in the morning. I spoke with the admitting team, MACK Martinez of [facility] who accepted the admission. Was smoking cessation discussed for >3mins.? @ -No Was critical care preformed (if so, how long)? @ -Yes, 36 minutes. Were there social determinants of health that impacted care today? How? (Homelessness, low income, unemployed, alcoholism, drug addiction, transportation, low edu. Level, literacy, decrease access to med. care, skilled nursing, rehab)? @ -No Was there de-escalation of care discussed even if they declined (Discuss DNR or withdrawal of care, Hospice)? DNR status @ -No What co-morbidities impacted this encounter? (DM, HTN, Smoking, COPD, CAD, Cancer, CVA, ARF, Chemo, Hep., AIDS, mental health diagnosis, sleep apnea, morbid obesity)? @ -CABG, prostate cancer Was patient admitted / discharged? Hospital course, mention meds given and route, prescriptions, significant lab abnormalities, going to OR and other pertinent info. @ -Based on the patient's presentation and physical exam, presents complaining of NSTEMI and rhabdomyolysis after fall. He was transferred from [facility]. He had an elevated troponin with no evidence of EKG changes to suggest acute ischemia. Creatinine kinase was elevated greater than 8000. Workup otherwise was unremarkable at the outside facility including lawler CT imaging which revealed no obvious injuries. CT brain was negative for any obvious traumatic injury at the outside facility. However CT abdomen pelvis did reveal suspected constipation. Patient was covered in feces apparently at the outside facility but states he feels like he needs to be bowel movement at this time. Patient will be continued on IV fluids. I spoke with on-call cardiology and discussed the case with them with the labs and workup from outside facility. Dr. Arechiga recommended initiating aspirin as well as heparin drip for NSTEMI. Patient has no obvious traumatic injury or bleed on the brain. They will evaluate the patient in the morning. Patient has no active chest pain and he was in agreement the plan for management. We will repeat laboratory studies, as well as EKG, chest x-ray. Patient received a total of 1 L fluid bolus prior to arrival. Due to his history of CHF patient will receive an additional 500 cc fluid bolus and be maintained on maintenance IV fluids at this time. Will closely monitor of volume status as he does have a history of volume overload state we do not want to cause that. Chest x-ray reveals no obvious significant vascular congestion at this time. Appears similar to prior chest x-rays. EKG showed no signs of acute ischemia. Due to the patient's constipation concern we will administer a suppository. He was in agreement this plan. Will continue to monitor. Patient states he did have bowel movements while he was on the ground and was covered in feces upon arrival to [facility] per nursing report. Imaging results reviewed by myself from outside hospital. No obvious traumatic injury. Patient's laboratory studies returned remarkable for leukocytosis of 17 which I believe is likely secondary to the underlying acute process of him being on the ground from likely multiple days. Creatinine kinase is improved compared to outside hospital currently at 6500. Troponin is still elevated at 13.6. Will continue with IV fluid hydration, IV heparin. Patient remains chest pain-free at this time. He is resting comfortably. Will be admitted to the hospital. I spoke with MACK Martinez of [facility] who is city call who accepted the admission. Undiagnosed new problem with uncertain prognosis? @ -No Drug Therapy requiring intensive monitoring for toxicity (Heparin, Nitro, Insulin, Cardizem)? @ -Heparin Were any procedures done? @ -No Diagnosis/symptom? @ -NSTEMI, Rhabdomyolysis, constipation Acute, or Chronic, or Acute on Chronic? @ -Acute Uncomplicated (without systemic symptoms) or Complicated (systemic symptoms)? @ -Complicated Side effects of treatment? @ -None Exacerbation, Progression, or Severe Exacerbation] @ -No Poses a threat to life or bodily function? @ -Yes - Lab Data Result diagrams: 05/05/23 01:05/05/23 01: Lab Results 05/05/23 05/05/23 05/05/23 Range/Units : 01: 01:23 WBC 17.2 H (3.8-10.6) k/uL RBC 4.54 (4.30-5.90) m/uL Hgb 13.4 (13.0-17.5) gm/dL Hct 40.7 (39.0-53.0) % MCV 89.7 (80.0-100.0) fL MCH 29.4 (25.0-35.0) pg MCHC 32.8 (31.0-37.0) g/dL RDW 13.5 (11.5-15.5) % Plt Count 323 (150-450) k/uL MPV 8.5 Neutrophils % 72 % Lymphocytes % 20 % Monocytes % 6 % Eosinophils % 1 % Basophils % 0 % Neutrophils # 12.3 H (1.3-7.7) k/uL Lymphocytes # 3.4 (1.0-4.8) k/uL Monocytes # 1.1 H (0-1.0) k/uL Eosinophils # 0.1 (0-0.7) k/uL Basophils # 0.1 (0-0.2) k/uL PT 10.8 (10.0-12.5) sec INR 1.0 (<1.2) APTT 21.5 L (22.0-30.0) sec Sodium 135 L (137-145) mmol/L Potassium 3.8 (3.5-5.1) mmol/L Chloride 104 (98-107) mmol/L Carbon Dioxide 24 (22-30) mmol/L Anion Gap 7 mmol/L BUN 33 H (9-20) mg/dL Creatinine 0.63 L (0.66-1.25) mg/dL Est GFR (CKD-EPI)AfAm >90 (>60 ml/min/1.73 sqM) Est GFR (CKD-EPI)NonAf >90 (>60 ml/min/1.73 sqM) Glucose 161 H (74-99) mg/dL Plasma Lactic Acid Mikie (0.7-2.0) mmol/L Calcium 9.4 (8.4-10.2) mg/dL Magnesium 1.8 (1.6-2.3) mg/dL Total Bilirubin 1.4 H (0.2-1.3) mg/dL AST 291 H (17-59) U/L ALT 75 H (4-49) U/L Alkaline Phosphatase 90 (38-126) U/L Creatine Kinase (55-170) U/L Troponin I (0.000-0.034) ng/mL NT-Pro-B Natriuret Pep 9490 pg/mL Total Protein 7.0 (6.3-8.2) g/dL Albumin 4.0 (3.5-5.0) g/dL 05/05/23 05/05/23 05/05/23 Range/Units 01:23 01:23 01:23 WBC (3.8-10.6) k/uL RBC (4.30-5.90) m/uL Hgb (13.0-17.5) gm/dL Hct (39.0-53.0) % MCV (80.0-100.0) fL MCH (25.0-35.0) pg MCHC (31.0-37.0) g/dL RDW (11.5-15.5) % Plt Count (150-450) k/uL MPV Neutrophils % % Lymphocytes % % Monocytes % % Eosinophils % % Basophils % % Neutrophils # (1.3-7.7) k/uL Lymphocytes # (1.0-4.8) k/uL Monocytes # (0-1.0) k/uL Eosinophils # (0-0.7) k/uL Basophils # (0-0.2) k/uL PT (10.0-12.5) sec INR (<1.2) APTT (22.0-30.0) sec Sodium (137-145) mmol/L Potassium (3.5-5.1) mmol/L Chloride (98-107) mmol/L Carbon Dioxide (22-30) mmol/L Anion Gap mmol/L BUN (9-20) mg/dL Creatinine (0.66-1.25) mg/dL Est GFR (CKD-EPI)AfAm (>60 ml/min/1.73 sqM) Est GFR (CKD-EPI)NonAf (>60 ml/min/1.73 sqM) Glucose (74-99) mg/dL Plasma Lactic Acid Mikie 1.8 (0.7-2.0) mmol/L Calcium (8.4-10.2) mg/dL Magnesium (1.6-2.3) mg/dL Total Bilirubin (0.2-1.3) mg/dL AST (17-59) U/L ALT (4-49) U/L Alkaline Phosphatase (38-126) U/L Creatine Kinase 6591 H* (55-170) U/L Troponin I 13.600 H* (0.000-0.034) ng/mL NT-Pro-B Natriuret Pep pg/mL Total Protein (6.3-8.2) g/dL Albumin (3.5-5.0) g/dL - EKG Data -: EKG Interpreted by Me EKG Comments: 12-lead Electrocardiogram Interpretation Note EKG was reviewed and interpreted by myself. 12-lead ECG performed at 0100 is interpreted by me as revealing normal sinus rhythm at a rate of 97 beats per minute. Monson is normal. HI interval is 196 ms, QRS duration is 139 ms, QTc is 506 ms.. There were no ST or T wave abnormalities to suggest myocardial ischemia or injury. R wave progression across the precordium was satisfactory. By my interpretation this EKG is non-diagnostic for acute ischemia. When compared with EKG from January 2021, no obvious significant acute finding. Critical Care Time Critical Care Time: Yes Total Critical Care Time: 36 Disposition Clinical Impression: Fall, NSTEMI (non-ST elevated myocardial infarction), Rhabdomyolysis, Constipation Disposition: ADMITTED IP TO THIS [facility] Condition: Serious Time of Disposition: 02:42
[2023-05-05 02:13] LABS: NT-Pro-B-Type Natriuretic Pept 9490 pg/mL
[2023-05-05 02:19] LABS: Prothrombin Time 10.8 sec (10.0-12.5)
[2023-05-05 02:35] LABS: Partial Thromboplastin Time 21.5 sec (22.0-30.0)
[2023-05-05] MEDS: GLYCERIN ADULT SUPPOSITORY 1 EACH RECTAL STA (02:48)
--- NOTE | 2023-05-05 02:49 | XR ---
EXAM: XR Chest, 1 View CLINICAL HISTORY: ITS.REASON XR Reason: fall TECHNIQUE: Frontal view of the chest. COMPARISON: 01/24/21 FINDINGS: Lungs: No airspace consolidation. Reduced lung volumes. Pleural space: No significant pleural effusion. No pneumothorax. Heart: Previous sternotomy. Stable cardiomegaly. No vascular congestion. Bones/joints: No visible fracture. IMPRESSION: No acute findings in the chest.
[2023-05-05] MEDS ORDERED: NALOXONE 0.4 MG/ML 1 ML VIAL IV PRN (02:51)
[2023-05-05] MEDS ORDERED: ONDANSETRON 4 MG/2 ML VIAL IVP PRN (02:51)
[2023-05-05] MEDS ORDERED: MORPHINE SULFATE 4 MG/ML SYRINGE IV PRN (02:51)
[2023-05-05] MEDS: MINERAL OIL 133 ML ENEMA RECTAL ONE (04:16)
[2023-05-05 04:22] LABS: Appearance,Urine Clear (Clear); Bilirubin,Urine Negative (Negative); Blood,Urine Negative (Negative); Color,Urine Yellow; Glucose,Urine (UA) 3+ (Negative); Hyaline Casts,Urine 1 /lpf (0-2); Ketones,Urine 1+ (Negative); Leukocyte Esterase,Urine Negative (Negative); Mucus,Urine Many /hpf; Nitrite,Urine Negative (Negative); Protein,Urine 1+ (Negative); RBC,Urine <1 /hpf (0-5); Specific Gravity,Urine 1.032 (1.001-1.035); Squamous Epithelial Cell,Urine <1 /hpf (0-4); Urobilinogen,Urine <2.0 mg/dL (<2.0); WBC,Urine 1 /hpf (0-5)
[2023-05-05] MEDS: atenoloL 25 MG TAB PO SCH (09:50)
[2023-05-05] MEDS: ISOSORBIDE MONONITRATE ER 30 MG TAB.ER.24H PO SCH (09:50)
[2023-05-05] MEDS: ASPIRIN 81 MG PO SCH (09:50)
[2023-05-05] MEDS: CLOPIDOGREL 75 MG TAB PO SCH (09:50)
--- NOTE | 2023-05-05 10:04 | P.CRDCN ---
History of Present Illness Consult date: 05/05/23 Reason for Consult (text): NSTEMI History of present illness: History of present illness: This is an 82-year-old male patient of Dr. Joseph Dumont with past medical history of coronary artery disease status post CABG followed by stenting of the SVG to diagonal, hypertension, dyslipidemia, mild to moderate aortic stenosis, aortic regurgitation. We have been asked to evaluate the patient for non-ST elevated myocardial infarction. Patient was transferred from [facility] for non- ST elevated myocardial infarction and rhabdomyolysis. Patient had initial troponin of 14 with normal EKG and no chest pain. CK was greater than 8000 patient was started on IV hydration and transferred to [facility]. Patient had unknown time on the floor. Patient states she is he does have some body aches not clear history. EKG sinus rhythm with nonspecific ST changes. Chest x-ray: No acute process WBC 17.2, hemoglobin 13.4, platelet count 323. INR 1. Sodium 135, potassium 3.8, BUN 33 creatinine 0.63. Blood sugar 161. Magnesium 1.8. Total bilirubin 1.4, AST 291, ALT 75, alkaline phosphatase 90. CK 6591. Troponin 13.6, 12.1. proBNP 9490. Urinalysis protein 3+. Home cardiac medications: Aspirin 81 mg daily, atenolol 20 mg daily, at orvastatin 80 mg at bedtime, enalapril 2.5 mg daily, Lasix 10 mg daily, Nitrostat as needed. Echocardiogram performed 01/17/2023 in the office revealed EF 45%. Mild aortic regurgitation and moderate aortic stenosis. Aortic valve is calcified. Moderate mitral regurgitation, mild to moderate tricuspid regurgitation. Normal pulmonary artery systolic pressure. Mild to moderate colonic regurgitation. Cardiac catheterization history, 09/29/2020. Cardiac catheterization performed by Dr. 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 Camejo. Lexiscan stress test performed in the office on 05/19/2021 revealed a negative stress test by EKG criteria. Abnormal nuclear scan showing evidence of prior inferior wall myocardial infarction with mild LV dysfunction without any ischemia. Review Of Systems: At the time of my exam: CONSTITUTIONAL: Denies fever or chills. HEENT: Denies blurred vision, vision changes, or eye pain. Denies hemoptysis CARDIOVASCULAR: Denies chest pain. Denies orthopnea. Denies PND. Denies palpi tations RESPIRATORY: Denies shortness of breath. GASTROINTESTINAL: Denies abdominal pain. Denies nausea or vomiting. HEMATOLOGIC: Denies bleeding disorders. GENITOURINARY: Denies any blood in urine. SKIN: Denies pruitis. Denies rash. Physical examination: Gen: This is a 82-year-old male in no acute distress VS: reviewed HEENT: Ecchymosis on the face, normocephalic. Pupils equal, round. Sclerae is anicteric. NECK: Supple. No JVD. LUNGS: Clear to auscultation. No wheezes or rhonchi. No intercostal retractions. HEART: Regular rate and rhythm. No murmur. ABDOMEN: Soft No tenderness. EXTREMITIES: Mild bilateral lower pedal edema. No calf tenderness. NEUROLOGICAL: Patient is awake. Assessment: Rhabdomyolysis Non-ST elevated myocardial infarction secondary to rhabdomyolysis, type II History of coronary artery disease status post CABG and PCI Hypertension Dyslipidemia Plan: Resume patient's home cardiac medications: Aspirin, atenolol, Plavix. Continue to hold Lipitor Start patient on Imdur 30 mg daily Continue heparin drip for another 24 hours No plan for cardiac catheterization Obtain 2-D echocardiogram and Doppler study to assess cardiac structure and function Further recommendations to follow based upon clinical course Thank you kindly for this consultation. Nurse practitioner note has been reviewed, I agree with documented findings and plan of care. Patient was seen and examined. 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, etc) History of Any Multi-Drug Resistant Organisms: None Reported Past Surgical History: Back Surgery, Cholecystectomy, Coronary Bypass/CABG, Tonsillectomy Additional Past Surgical History / Comment(s): hernia repair, Past Anesthesia/Blood Transfusion Reactions: No Reported Reaction Past Psychological History: No Psychological Hx Reported Smoking Status: Former smoker Past Alcohol Use History: None Reported Past Drug Use History: None Reported Medications and Allergies Home Medications Medication Instructions Recorded Confirmed Type Enalapril Maleate 2.5 mg PO DAILY 01/04/14 05/05/23 History atenoloL 25 mg PO DAILY 01/04/14 05/05/23 History Furosemide [Lasix] 10 mg PO DAILY 09/29/20 05/05/23 History Latanoprost/Pf [Latanoprost 0.005% 1 drop BOTH EYES HS 09/29/20 05/05/23 History Eye Drop] Atorvastatin [Lipitor] 80 mg PO HS 30 Days #30 tab 10/01/20 05/05/23 Rx Nitroglycerin Sl Tabs [Nitrostat] 0.4 mg SUBLINGUAL Q5M PRN #30 tab 10/01/20 05/05/23 Rx Aspirin EC [Ecotrin Low Dose] 81 mg PO HS 05/05/23 05/05/23 History Enzalutamide [Xtandi] 160 mg PO DAILY 05/05/23 05/05/23 History Vit C/E/Zn/Coppr/Lutein/Zeaxan 1 cap PO DAILY 05/05/23 05/05/23 History [Preservision Areds 2 Softgel] Allergies Allergy/AdvReac Type Severity Reaction Status Date / Time Penicillins Allergy Rash/Hives Verified 05/05/23 08:30 red dye Allergy Anaphylaxis Verified 05/05/23 08:30 shellfish derived Allergy Anaphylaxis Verified 05/05/23 08:30 Physical Exam Vitals: Vital Signs Temp Pulse Resp BP Pulse Ox 05/05/23 07:55 98.9 F 93 16 118/81 97 05/05/23 06:00 92 18 104/62 94 L 05/05/23 02:07 95 16 130/84 95 05/05/23 00:57 98.5 F 97 22 125/72 97 Intake and Output 05/04/23 05/05/23 05/05/23 22:59 06:59 14:59 Other: Weight 105.233 kg Results 05/05/23 01:23 05/05/23 01:23 Cardiac Enzymes 05/05/23 05/05/23 05/05/23 Range/Units 01:23 01:23 04:56 AST 291 H (17-59) U/L Troponin I 13.600 H* 12.100 H* (0.000-0.034) ng/mL Coagulation 05/05/23 Range/Units 01:23 PT 10.8 (10.0-12.5) sec APTT 21.5 L (22.0-30.0) sec CBC 05/05/23 Range/Units 01:23 WBC 17.2 H (3.8-10.6) k/uL RBC 4.54 (4.30-5.90) m/uL Hgb 13.4 (13.0-17.5) gm/dL Hct 40.7 (39.0-53.0) % Plt Count 323 (150-450) k/uL Comprehensive Metabolic Panel 05/05/23 Range/Units 01:23 Sodium 135 L (137-145) mmol/L Potassium 3.8 (3.5-5.1) mmol/L Chloride 104 (98-107) mmol/L Carbon Dioxide 24 (22-30) mmol/L BUN 33 H (9-20) mg/dL Creatinine 0.63 L (0.66-1.25) mg/dL Glucose 161 H (74-99) mg/dL Calcium 9.4 (8.4-10.2) mg/dL AST 291 H (17-59) U/L ALT 75 H (4-49) U/L Alkaline Phosphatase 90 (38-126) U/L Total Protein 7.0 (6.3-8.2) g/dL Albumin 4.0 (3.5-5.0) g/dL Current Medications Generic Name Dose Route Start Last Admin Trade Name Freq PRN Reason Stop Dose Admin Heparin Sodium (Porcine) 0 unit 05/05/23 01:21 Heparin Sodium 1,000 Un/Ml (10ml Vl) IV PER PROTOCOL PRN Low PTT Protocol Sodium Chloride 1,000 mls @ 130 mls/hr 05/05/23 01:20 05/05/23 02:02 Saline 0.9% IV 05/05/23 09:01 100 mls/hr .Q7H42M STA Administration Heparin Sodium/Sodium Chloride 250 mls @ 10.018 mls/hr 05/05/23 01:30 05/05/23 02:04 25,000 unit/ Sodium Chloride IV 9.5 units/kg/hr .Q24H LYUBOV 10 mls/hr Administration Protocol 9.52 UNITS/KG/HR Ibuprofen 400 mg 05/05/23 02:51 Ibuprofen 400 Mg Tab PO Q6HR PRN Mild Pain or Fever > 100.5 Morphine Sulfate 4 mg 05/05/23 02:51 Morphine Sulfate 4 Mg/Ml Syringe IV Q4HR PRN Severe Pain (Scale 7 to 10) Naloxone HCl 0.2 mg 05/05/23 02:51 Naloxone 0.4 Mg/Ml 1 Ml Vial IV Q2M PRN Opioid Reversal Ondansetron HCl 4 mg 05/05/23 02:51 Ondansetron 4 Mg/2 Ml Vial IVP Q8HR PRN Nausea And Vomiting Intake and Output 05/04/23 05/05/23 05/05/23 22:59 06:59 14:59 Other: Weight 105.233 kg 05/05/23 01:23 05/05/23 01:23
[2023-05-05] MEDS ORDERED: NITROGLYCERIN SL TABS 0.4 MG TAB SUBLINGUAL PRN (12:25)
[2023-05-05] MEDS: HEPARIN SODIUM 1,000 UN/ML (10ML VL) IV PRN (12:28)
--- NOTE | 2023-05-05 17:08 | CA ---
Transthoracic Echo Report Name: Aquilino Pratt Age: 82 Gender: M : 1940 Exam Date: 05/05/2023 14:21 Exam Location: [facility] Ht (in): 68 Wt (lb): 232 Ordering Physician: Mckay Paniagua MD Attending/Referring Phys: Wafer Substrate Tester Cathleen Fox RCS Procedure CPT: Indications: nstemi Cardiac Hx: Technical Quality: Technically difficult study Contrast 1: Definity Total Dose (mL): 2 Contrast 2: Definity Total Dose (mL): 10 MEASUREMENTS (Male / Female) Normal Values 2D ECHO LV Diastolic Diameter PLAX 6.3 cm 4.2 - 5.9 / 3.9 - 5.3 cm LV Systolic Diameter PLAX 5.3 cm IVS Diastolic Thickness 1.1 cm 0.6 - 1.0 / 0.6 - 0.9 cm LVPW Diastolic Thickness 0.8 cm 0.6 - 1.0 / 0.6 - 0.9 cm LV Relative Wall Thickness 0.3 RV Internal Dim ED PLAX 3.5 cm LVOT Diameter 2.8 cm LV Diastolic Volume MOD BP 156.0 cm??? 67 - 155 / 56 - 104 cm??? LV Systolic Volume MOD BP 65.6 cm??? 22 - 58 / 19 - 49 cm??? LV Ejection Fraction MOD BP 57.9 % >= 55 % LV Cardiac Index MOD BP 3278.2 cm???/min???m??? LV Diastolic Volume MOD 4C 165.4 cm??? LV Systolic Volume MOD 4C 63.9 cm??? LV Ejection Fraction MOD 4C 61.3 % LV Cardiac Index MOD 4C 3681.2 cm???/min???m??? LV Diastolic Length 4C 9.2 cm LV Systolic Length 4C 8.0 cm LV Diastolic Volume MOD 2C 146.5 cm??? LV Systolic Volume MOD 2C 64.5 cm??? LV Ejection Fraction MOD 2C 56.0 % LV Cardiac Index MOD 2C 2977.8 cm???/min???m??? LV Diastolic Length 2C 9.1 cm LV Systolic Length 2C 7.6 cm LA Volume 156.7 cm??? 18 - 58 / 22 - 52 cm??? LA Volume Index 68.5 cm???/m??? 16 - 28 cm???/m??? DOPPLER AV Peak Velocity 278.9 cm/s AV Peak Gradient 31.1 mmHg AV Mean Velocity 192.6 cm/s AV Mean Gradient 17.1 mmHg AV Velocity Time Integral 55.0 cm LVOT Peak Velocity 106.3 cm/s LVOT Peak Gradient 4.5 mmHg LVOT Velocity Time Integral 20.3 cm LVOT Stroke Volume 121.6 cm??? LVOT Stroke Volume Index 55.8 ml/m??? LVOT Cardiac Index 4411.2 cm???/min???m??? AV Area Cont Eq vti 2.2 cm??? AV Area Cont Eq pk 2.3 cm??? MV Area PHT 6.1 cm??? Mitral E Point Velocity 59.7 cm/s Mitral A Point Velocity 95.4 cm/s Mitral E to A Ratio 0.6 MV Deceleration Time 123.8 ms TR Peak Velocity 257.1 cm/s TR Peak Gradient 26.4 mmHg PV Peak Velocity 105.7 cm/s PV Peak Gradient 4.5 mmHg FINDINGS Left Ventricle Left ventricular ejection fraction is estimated at 50-55 %. Mildly increased septal wall thickness. Mildly increased left ventricular diastolic diameter. Mildly increased left ventricular systolic volume. Basal anterolateral to mid anterolateral wall hypokinetic, anterior wall hypokinetic. Right Ventricle Mild right ventricular dilatation. Normal right ventricular global systolic function.right ventricular systolic pressure within normal limits. Right Atrium Moderate to severe right atrial dilatation. Left Atrium Severely increased left atrial volume. Moderately increased left atrial area. Mitral Valve Thickened mitral valve without stenosis. No mitral stenosis. Trace mitral regurgitation. Aortic Valve Trileaflet aortic valve. [id number] aortic stenosis with a peak gradient of 31 mmHg and a mean gradient of 17 mmHg. Trace to mild aortic regurgitation. Tricuspid Valve Structurally normal tricuspid valve. No tricuspid stenosis. Trace tricuspid regurgitation. Pulmonic Valve Structurally normal pulmonic valve. No pulmonic stenosis. No pulmonic regurgitation. Pericardium No pericardial effusion. Aorta Normal size aortic root and proximal ascending aorta. CONCLUSIONS Mildly increased left ventricular wall thickness Left ventricular ejection fraction 50-55% with anterolateral hypokinesis RVSP 26 Moderately dilated left atrium Moderate to severe right atrial dilation Trace mitral regurgitation Mild to moderate aortic stenosis No pericardial effusion Previewed by: Dr. Ramon Arechiga DO (Electronically Signed) Final Date: 05 May 2023 17:07
[2023-05-05] MEDS: SODIUM CHLORIDE 0.9% 1,000 ML IV SCH (17:27)
--- NOTE | 2023-05-05 19:17 | P.HPIM ---
History of Present Illness H&P Date: 05/05/23 Chief Complaint: Fall/rhabdomyolysis 82-year-old male who presents emergency department complaining of a fall. He was transferred from [facility] for NSTEMI and rhabdomyolysis. Workup at the outside hospital unremarkable for any obvious traumatic injury. He did have a troponin of 14 with normal EKG and no active chest pain. He also has rhabdomyolysis with a creatinine kinase greater than 8000. He was started on gentle fluid hydration and transferred here for evaluation by cardiology as his chrome tanner Dr. Bass is here. Unknown how long he was on the ground, did have a transplant worker on 02 May so patient could have been on the ground since then. Endorses generalized bodyaches. States he had chest pain intermittently over the last few weeks. Last occurred prior to the fall. Lasted moments and self resolved. Currently has no chest pain and is not since being in the hospital. Has no other acute complaints at this time other than chronic abdomi nal pain as he does have a history of constipation. Presents for further evaluation at this time. Upper and was held at the outside facility over concern for the rhabdomyolysis and requested cardiology evaluation prior to initiating. Blood work completed in ED reveals a WBC of 17.2, hemoglobin of 13.4 and platelet count of 32.3, sodium of 135, potassium of 3.8, BUN/creatinine of 33/0.63 and blood glucose of 161, CK of 6591, troponin elevated at 9.550 Chest x-ray is negative for any acute process Review of Systems REVIEW OF SYSTEMS: CONSTITUTIONAL: No fever, no malaise, no fatigue. HEENT: No recent visual problems or hearing problems. Denied any sore throat. CARDIOVASCULAR: No chest pain, orthopnea, PND, no palpitations, no syncope. PULMONARY: No shortness of breath, no cough, no hemoptysis. GASTROINTESTINAL: No diarrhea, no nausea, no vomiting, no abdominal pain. NEUROLOGICAL: No headaches, no weakness, no numbness. HEMATOLOGICAL: Denies any bleeding or petechiae. GENITOURINARY: Denies any burning micturition, frequency, or urgency. MUSCULOSKELETAL/RHEUMATOLOGICAL: Denies any joint pain, swelling, or any muscle pain. ENDOCRINE: Denies any polyuria or polydipsia. The rest of the 14-point review of systems is negative. 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, etc) History of Any Multi-Drug Resistant Organisms: None Reported Past Surgical History: Back Surgery, Cholecystectomy, Coronary Bypass/CABG, Tonsillectomy Additional Past Surgical History / Comment(s): hernia repair, Past Anesthesia/Blood Transfusion Reactions: No Reported Reaction Past Psychological History: No Psychological Hx Reported Smoking Status: Former smoker Past Alcohol Use History: None Reported Past Drug Use History: None Reported Medications and Allergies Home Medications Medication Instructions Recorded Confirmed Type Enalapril Maleate 2.5 mg PO DAILY 01/04/14 05/05/23 History atenoloL 25 mg PO DAILY 01/04/14 05/05/23 History Furosemide [Lasix] 10 mg PO DAILY 09/29/20 05/05/23 History Latanoprost/Pf [Latanoprost 0.005% 1 drop BOTH EYES HS 09/29/20 05/05/23 History Eye Drop] Atorvastatin [Lipitor] 80 mg PO HS 30 Days #30 tab 10/01/20 05/05/23 Rx Nitroglycerin Sl Tabs [Nitrostat] 0.4 mg SUBLINGUAL Q5M PRN #30 tab 10/01/20 05/05/23 Rx Aspirin EC [Ecotrin Low Dose] 81 mg PO HS 05/05/23 05/05/23 History Enzalutamide [Xtandi] 160 mg PO DAILY 05/05/23 05/05/23 History Vit C/E/Zn/Coppr/Lutein/Zeaxan 1 cap PO DAILY 05/05/23 05/05/23 History [Preservision Areds 2 Softgel] Allergies Allergy/AdvReac Type Severity Reaction Status Date / Time Penicillins Allergy Rash/Hives Verified 05/05/23 08:30 red dye Allergy Anaphylaxis Verified 05/05/23 08:30 shellfish derived Allergy Anaphylaxis Verified 05/05/23 08:30 Physical Exam Vitals: Vital Signs Temp Pulse Resp BP Pulse Ox 05/05/23 11:48 83 18 115/69 95 05/05/23 09:49 95 18 123/79 98 05/05/23 07:55 98.9 F 93 16 118/81 97 05/05/23 06:00 92 18 104/62 94 L 02/16/24 02:07 95 16 130/84 95 05/05/23 00:57 98.5 F 97 22 125/72 97 Intake and Output 05/04/23 05/05/23 05/05/23 22:59 06:59 14:59 Other: Weight 105.233 kg General: Appears in no acute distress. HEAD: Normal with no signs of head trauma. Various abrasions over the face. EYES: PERRLA, EOMI, conjunctiva normal, no discharge. Pupils 3 mm and equal bilaterally. ENT: Hearing grossly intact, normal oropharynx. RESPIRATORY: Clear breath sounds bilaterally. No wheezes, rales, or rhonchi. C/V: Regular rate and rhythm. S1 and S2 auscultated, no edema, peripheral pulses 2+ and intact throughout ABD: Abdomen is soft, minimally distended. Patient states he has chronic abdominal pain and history of chronic constipation. Feels like he needs to go at this time. No guarding. No rebound tenderness. No peritoneal signs. EXT: Normal range of motion, no obvious deformity. Pelvis is stable. No significant midline cervical, thoracic, lumbar spine tenderness to palpation. SKIN: Multiple abrasions over the patient's face and other extremities. NEURO: Alert and oriented x 4. Cranial nerves II-XII intact. No focal sensory or strength deficits. GCS of 15. Results CBC & Chem 7: 05/05/23 01:23 05/05/23 01:23 Labs: Abnormal Lab Results - Last 24 Hours (Table) 05/05/23 05/05/23 05/05/23 Range/Units 01:23 01:23 01:23 WBC 17.2 H (3.8-10.6) k/uL Neutrophils # 12.3 H (1.3-7.7) k/uL Monocytes # 1.1 H (0-1.0) k/uL APTT 21.5 L (22.0-30.0) sec Sodium 135 L (137-145) mmol/L BUN 33 H (9-20) mg/dL Creatinine 0.63 L (0.66-1.25) mg/dL Glucose 161 H (74-99) mg/dL Total Bilirubin 1.4 H (0.2-1.3) mg/dL AST 291 H (17-59) U/L ALT 75 H (4-49) U/L Creatine Kinase (55-170) U/L Troponin I (0.000-0.034) ng/mL Urine Protein (Negative) Urine Glucose (UA) (Negative) Urine Ketones (Negative) Urine Mucus (None) /hpf 05/05/23 05/05/23 05/05/23 Range/Units 01:23 01:23 04:03 WBC (3.8-10.6) k/uL Neutrophils # (1.3-7.7) k/uL Monocytes # (0-1.0) k/uL APTT (22.0-30.0) sec Sodium (137-145) mmol/L BUN (9-20) mg/dL Creatinine (0.66-1.25) mg/dL Glucose (74-99) mg/dL Total Bilirubin (0.2-1.3) mg/dL AST (17-59) U/L ALT (4-49) U/L Creatine Kinase 6591 H* (55-170) U/L Troponin I 13.600 H* (0.000-0.034) ng/mL Urine Protein 1+ H (Negative) Urine Glucose (UA) 3+ H (Negative) Urine Ketones 1+ H (Negative) Urine Mucus Many H (None) /hpf 05/05/23 05/05/23 Range/Units 04:56 10:33 WBC (3.8-10.6) k/uL Neutrophils # (1.3-7.7) k/uL Monocytes # (0-1.0) k/uL APTT 37.1 H (22.0-30.0) sec Sodium (137-145) mmol/L BUN (9-20) mg/dL Creatinine (0.66-1.25) mg/dL Glucose (74-99) mg/dL Total Bilirubin (0.2-1.3) mg/dL AST (17-59) U/L ALT (4-49) U/L Creatine Kinase (55-170) U/L Troponin I 12.100 H* (0.000-0.034) ng/mL Urine Protein (Negative) Urine Glucose (UA) (Negative) Urine Ketones (Negative) Urine Mucus (None) /hpf Assessment and Plan Assessment: 1. Elevated troponin; non-ST elevation OR -- Patient has been evaluated by cardiology; NSTEMI secondary to rhabdomyolysis, type II -Cardiology recommending to continue with IV heparin infusion for another 24 hours -Patient has been placed on Imdur 30 mg daily -- 2D echo ordered; further recommendations pending results 2. Rhabdomyolysis; remains on IV fluids in form of normal saline at a rate of 75 cc an hour; will monitor total CPK levels and make further recommendations 3. Leukocytosis; likely reactive; UA and chest x-ray is unremarkable; we will monitor CBC with plans to initiate sepsis workup if white blood count remains elevated 4. Mild renal injury; IV fluid hydration as indicated above; monitor strict ADELSO's, daily weights, renal function electrolytes; avoid nephrotoxins and hypotension 5. Hypertension; continue with home dose of metoprolol, enalapril 2.5 mg daily; cardiology recommending to add Imdur 30 mg daily 6. Hyperlipidemia; patient takes Lipitor at home which has been placed on hold due to rhabdomyolysis 7. Gastroesophageal reflux disease DVT prophylaxis; SCDs/IV heparin CODE STATUS; full code
[2023-05-05] MEDS ORDERED: ATORVASTATIN 80 MG TAB PO SCH (21:00)
[2023-05-05] MEDS ORDERED: NON FORMULARY DRUG (Aspirin Ec 81 MG Tablet) PO SCH (21:00)
[2023-05-05] MEDS: IBUPROFEN 400 MG TAB PO PRN (21:15)
[2023-05-05] MEDS: ZINC OXIDE PASTE (Z-GUARD) 1 APPLIC TOPICAL PRN (22:59)
[2023-05-05] MEDS: LATANOPROST 0.005% OPHTH DROPS 2.5 ML BTL BOTH EYES SCH (22:59)
[2023-05-06 01:50] LABS: Basophils # (A) 0.1 k/uL (0-0.2); Basophils % (A) 1 %; Eosinophils # (A) 0.2 k/uL (0-0.7); Eosinophils % (A) 1 %; HCT 32.9 % (39.0-53.0); HGB 10.9 gm/dL (13.0-17.5); Lymphocytes # (A) 4.1 k/uL (1.0-4.8); Lymphocytes % (A) 28 %; MCHC 33.3 g/dL (31.0-37.0); MCV 90.2 fL (80.0-100.0); Mean Platelet Volume 7.8; Monocytes # (A) 0.9 k/uL (0-1.0); Monocytes % (A) 6 %; Neutrophils # (A) 9.3 k/uL (1.3-7.7); Neutrophils % (A) 63 %; Platelet Count 298 k/uL (150-450); RBC 3.64 m/uL (4.30-5.90); RDW 13.6 % (11.5-15.5); WBC 14.7 k/uL (3.8-10.6)
[2023-05-06] MEDS: NON FORMULARY DRUG (Enzalutamide [Xtandi] 40 MG Tablet) PO SCH (08:39)
[2023-05-06] MEDS: lisinopriL 5 MG TAB PO SCH (08:46)
[2023-05-06] MEDS: VIT A,C & E-LUTEIN-MINERALS 1 EACH TAB PO SCH (08:46)
[2023-05-06 09:11] LABS: Basophils # (A) 0.1 k/uL (0-0.2); Basophils % (A) 1 %; Eosinophils # (A) 0.3 k/uL (0-0.7); Eosinophils % (A) 2 %; HCT 35.5 % (39.0-53.0); HGB 11.6 gm/dL (13.0-17.5); Lymphocytes % (A) 27 %; MCH 30.2 pg (25.0-35.0); MCHC 32.8 g/dL (31.0-37.0); MCV 92.2 fL (80.0-100.0); Mean Platelet Volume 8.7; Monocytes # (A) 0.9 k/uL (0-1.0); Monocytes % (A) 6 %; Neutrophils # (A) 9.3 k/uL (1.3-7.7); Neutrophils % (A) 63 %; Platelet Count 308 k/uL (150-450); RBC 3.85 m/uL (4.30-5.90); RDW 13.4 % (11.5-15.5); WBC 14.8 k/uL (3.8-10.6)
--- NOTE | 2023-05-06 09:27 | P.PN ---
Subjective Progress Note Date: 05/06/23 Reason for Consult (text): NSTEMI History of present illness: History of present illness: This is an 82-year-old male patient of Dr. Joseph Dumont with past medical history of coronary artery disease status post CABG followed by stenting of the SVG to diagonal, hypertension, dyslipidemia, mild to moderate aortic stenosis, aortic regurgitation. We have been asked to evaluate the patient for non-ST elevated myocardial infarction. Patient was transferred from [facility] for non- ST elevated myocardial infarction and rhabdomyolysis. Patient had initial troponin of 14 with normal EKG and no chest pain. CK was greater than 8000 patient was started on IV hydration and transferred to [facility]. Patient had unknown time on the floor. Patient states she is he does have some body aches not clear history. EKG sinus rhythm with nonspecific ST changes. Chest x-ray: No acute process WBC 17.2, hemoglobin 13.4, platelet count 323. INR 1. Sodium 135, potassium 3.8, BUN 33 creatinine 0.63. Blood sugar 161. Magnesium 1.8. Total bilirubin 1.4, AST 291, ALT 75, alkaline phosphatase 90. CK 6591. Troponin 13.6, 12.1. proBNP 9490. Urinalysis protein 3+. Home cardiac medications: Aspirin 81 mg daily, atenolol 20 mg daily, atorvastati n 80 mg at bedtime, enalapril 2.5 mg daily, Lasix 10 mg daily, Nitrostat as needed. Echocardiogram performed 01/17/2023 in the office revealed EF 45%. Mild aortic regurgitation and moderate aortic stenosis. Aortic valve is calcified. Moderate mitral regurgitation, mild to moderate tricuspid regurgitation. Normal pulmonary artery systolic pressure. Mild to moderate colonic regurgitation. Cardiac catheterization history, 09/29/2020. Cardiac catheterization performed by Dr. 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 Camejo. Lexiscan stress test performed in the office on 05/19/2021 revealed a negative stress test by EKG criteria. Abnormal nuclear scan showing evidence of prior inferior wall myocardial infarction with mild LV dysfunction without any ischemia. 05/06 Yesterday he was resumed on his home cardiac medications except Lipitor is on hold due to rhabdomyolysis. Patient is been started on heparin drip which will be maintained for 1 more day. Patient was also on started on Imdur yesterday and denies having any chest pain today. Blood pressure 104/57, heart rate 76, pulse ox 95% on room air. Repeat blood work reveals WBC 14.8, hemoglobin 0.6. Chemistry is not available. Echocardiogram reveals EF of 50 to 55%. RVSP 26. Moderate to severe right atrial dilatation. Trace mitral regurgitation. Mild to moderate aortic stenosis. Physical examination: Gen: This is a 82-year-old male in no acute distress VS: reviewed HEENT: Ecchymosis on the face, normocephalic. Pupils equal, round. Sclerae is anicteric. NECK: Supple. No JVD. LUNGS: Clear to auscultation. No wheezes or rhonchi. No intercostal retractions. HEART: Regular rate and rhythm. Systolic murmur. ABDOMEN: Soft No tenderness. EXTREMITIES: Mild bilateral lower pedal edema. No calf tenderness. NEUROLOGICAL: Patient is awake. Assessment: Rhabdomyolysis Non-ST elevated myocardial infarction secondary to rhabdomyolysis, type II History of coronary artery disease status post CABG and PCI Hypertension Dyslipidemia Moderate aortic stenosis Plan: Resume patient's home cardiac medications: Aspirin, atenolol, Plavix. Continue to hold Lipitor Continue patient on Imdur 30 mg daily Continue heparin drip for another 24 hours No plan for cardiac catheterization Further recommendations to follow based upon clinical course Nurse practitioner note has been reviewed, I agree with documented findings and plan of care. Patient was seen and examined. Objective - Vital Signs Vital signs: Vital Signs Temp 98.4 F 05/06/23 04:00 Pulse 74 05/06/23 04:00 Resp 16 05/06/23 04:00 BP 104/57 05/06/23 04:00 Pulse Ox 95 05/06/23 04:00 FiO2 Intake & Output 05/05/23 05/06/23 05/06/23 18:59 06:59 18:59 Intake Total 377.954 9069.967 Output Total 800 Balance 169.951 2563.967 Weight 105.233 kg Intake: Intake, IV Titration 104.333 990.967 Amount Heparin Sod,Pork in 0.45% 104.333 90.967 NaCl 25,000 unit In 0.45 % NaCl 1 250ml.bag @ 9.52 UNITS/KG/HR 10.018 mls/ hr IV .Q24H [facility] Rx#: [id number] Sodium Chloride 0.9% 1, 900 000 ml @ 75 mls/hr IV . [id number] [facility] Rx#:[id number] Oral 1080 Output: Urine 800 Other: Voiding Method Indwelling Catheter Indwelling Catheter # Voids 1 - Labs CBC & Chem 7: 05/06/23 07:29 05/05/23 01:23 Labs: Abnormal Lab Results - Last 24 Hours (Table) 05/05/23 05/05/23 05/05/23 Range/Units 10:33 10:33 18:17 WBC (3.8-10.6) k/uL RBC (4.30-5.90) m/uL Hgb (13.0-17.5) gm/dL Hct (39.0-53.0) % Neutrophils # (1.3-7.7) k/uL APTT 37.1 H 40.2 H (22.0-30.0) sec Troponin I 9.550 H* (0.000-0.034) ng/mL 05/06/23 05/06/23 Range/Units 01:41 01:41 WBC 14.7 H (3.8-10.6) k/uL RBC 3.64 L (4.30-5.90) m/uL Hgb 10.9 L (13.0-17.5) gm/dL Hct 32.9 L (39.0-53.0) % Neutrophils # 9.3 H (1.3-7.7) k/uL APTT 51.9 H (22.0-30.0) sec Troponin I (0.000-0.034) ng/mL
[2023-05-06] MEDS: FUROSEMIDE 10 MG TAB PO SCH (09:31)
[2023-05-06] MEDS: FUROSEMIDE 20 MG TAB PO SCH (09:36)
[2023-05-06 09:46] LABS: African American GFR (CKD) >90 (>60 ml/min/1.73 sqM); Anion Gap 6 mmol/L; Blood Urea Nitrogen 25 mg/dL (9-20); Calcium 7.1 mg/dL (8.4-10.2); Carbon Dioxide 20 mmol/L (22-30); Chloride 110 mmol/L (98-107); Glucose 137 mg/dL (74-99); Non-African American GFR(CKD) >90 (>60 ml/min/1.73 sqM); Potassium 4.9 mmol/L (3.5-5.1); Sodium 136 mmol/L (137-145)
[2023-05-06 10:03] LABS: Creatine Kinase 2175 U/L (55-170)
[2023-05-06 11:02] LABS: Prothrombin Time 11.1 sec (10.0-12.5)
--- NOTE | 2023-05-06 20:09 | P.PN ---
Subjective Progress Note Date: 05/06/23 82-year-old male who presents emergency department complaining of a fall. He was transferred from [facility] for NSTEMI and rhabdomyolysis. Workup at the outside hospital unremarkable for any obvious traumatic injury. He did have a troponin of 14 with normal EKG and no active chest pain. He also has rhabdomyolysis with a creatinine kinase greater than 8000. 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 Unknown how long he was on the ground, did have a load out supervisor on 02 May so patient could have been on the ground since then. Endorses generalized bodyaches. States he had chest pain intermittently over the last few weeks. Last occurred prior to the fall. Lasted moments and self resolved. Currently has no chest pain and is not since being in the hospital. Has no other acute complaints at this time other than chronic abdominal pain as he does have a history of constipation. Presents for further evaluation at this time. Upper and was held at the outside facility over concern for the rhabdomyolysis and requested cardiology evaluation prior to initiating. Blood work completed in ED reveals a WBC of 17.2, hemoglobin of 13.4 and platelet count of 32.3, sodium of 135, potassium of 3.8, BUN/creatinine of 33/0.63 and blood glucose of 161, CK of 6591, troponin elevated at 9.550 Chest x-ray is negative for any acute process 05/06/2023 Patient is seen and evaluated in room at bedside; no specific complaints reported Patient has been evaluated by cardiology and was resumed on his home cardiac medications except Lipitor is on hold due to rhabdomyolysis. Patient is been started on heparin drip which will be maintained for 1 more day. Patient was also on started on Imdur yesterday and denies having any chest pain today. Blood pressure 104/57, heart rate 76, pulse ox 95% on room air. Repeat blood work reveals WBC 14.8, hemoglobin 0.6. Chemistry is not available. Echocardiogram reveals EF of 50 to 55%. RVSP 26. Moderate to severe right atrial dilatation. Trace mitral regurgitation. Mild to moderate aortic stenosis. Objective - Vital Signs Vital signs: Vital Signs Temp 98.2 F 05/06/23 11:26 Pulse 65 05/06/23 11:26 Resp 18 02/17/24 11:26 BP 117/63 05/06/23 11:26 Pulse Ox 95 05/06/23 11:26 FiO2 Intake & Output 05/05/23 05/06/23 05/06/23 18:59 06:59 18:59 Intake Total 827.719 8114.967 Output Total 800 Balance 265.136 6425.967 Weight 105.233 kg Intake: Intake, IV Titration 104.333 990.967 Amount Heparin Sod,Pork in 0.45% 104.333 90.967 NaCl 25,000 unit In 0.45 % NaCl 1 250ml.bag @ 9.52 UNITS/KG/HR 10.018 mls/ hr IV .Q24H [facility] Rx#: [id number] Sodium Chloride 0.9% 1, 900 000 ml @ 75 mls/hr IV . [id number] [facility] Rx#:[id number] Oral 1080 Output: Urine 800 Other: Voiding Method Indwelling Catheter Indwelling Catheter Indwelling Catheter # Voids 1 - Exam Gen: This is a 82-year-old male in no acute distress VS: reviewed HEENT: Ecchymosis on the face, normocephalic. Pupils equal, round. Sclerae is anicteric. NECK: Supple. No JVD. LUNGS: Clear to auscultation. No wheezes or rhonchi. No intercostal retractions. HEART: Regular rate and rhythm. Systolic murmur. ABDOMEN: Soft No tenderness. EXTREMITIES: Mild bilateral lower pedal edema. No calf tenderness. NEUROLOGICAL: Patient is awake. - Labs CBC & Chem 7: 05/06/23 07:29 05/06/23 07:29 Labs: Abnormal Lab Results - Last 24 Hours (Table) 05/05/23 05/06/23 05/06/23 Range/Units 18:17 01:41 01:41 WBC 14.7 H (3.8-10.6) k/uL RBC 3.64 L (4.30-5.90) m/uL Hgb 10.9 L (13.0-17.5) gm/dL Hct 32.9 L (39.0-53.0) % Neutrophils # 9.3 H (1.3-7.7) k/uL APTT 40.2 H 51.9 H (22.0-30.0) sec Sodium (137-145) mmol/L Chloride (98-107) mmol/L Carbon Dioxide (22-30) mmol/L BUN (9-20) mg/dL Creatinine (0.66-1.25) mg/dL Glucose (74-99) mg/dL Calcium (8.4-10.2) mg/dL Creatine Kinase (55-170) U/L 05/06/23 05/06/23 Range/Units 07:29 07:29 WBC 14.8 H (3.8-10.6) k/uL RBC 3.85 L (4.30-5.90) m/uL Hgb 11.6 L (13.0-17.5) gm/dL Hct 35.5 L (39.0-53.0) % Neutrophils # 9.3 H (1.3-7.7) k/uL APTT (22.0-30.0) sec Sodium 136 L (137-145) mmol/L Chloride 110 H (98-107) mmol/L Carbon Dioxide 20 L (22-30) mmol/L BUN 25 H (9-20) mg/dL Creatinine 0.59 L (0.66-1.25) mg/dL Glucose 137 H (74-99) mg/dL Calcium 7.1 L (8.4-10.2) mg/dL Creatine Kinase 2175 H* (55-170) U/L Assessment and Plan Assessment: 1. Elevated troponin; non-ST elevation AR -- Patient has been evaluated by cardiology; NSTEMI secondary to rhabdomyolysis, type II -Cardiology recommending to continue with IV heparin infusion for another 24 hours -Patient has been placed on Imdur 30 mg daily -- 2D echo ordered; further recommendations pending results 2. Rhabdomyolysis; remains on IV fluids in form of normal saline at a rate of 75 cc an hour; will monitor total CPK levels and make further recommendations 3. Leukocytosis; likely reactive; UA and chest x-ray is unremarkable; we will monitor CBC with plans to initiate sepsis workup if white blood count remains elevated 4. Mild renal injury; IV fluid hydration as indicated above; monitor strict ADELSO's, daily weights, renal function electrolytes; avoid nephrotoxins and hypotension 5. Hypertension; continue with home dose of metoprolol, enalapril 2.5 mg daily; cardiology recommending to add Imdur 30 mg daily 6. Hyperlipidemia; patient takes Lipitor at home which has been placed on hold due to rhabdomyolysis 7. Gastroesophageal reflux disease DVT prophylaxis; SCDs/IV heparin CODE STATUS; full code
[2023-05-07 08:27] LABS: Basophils # (A) 0.1 k/uL (0-0.2); Basophils % (A) 0 %; Eosinophils # (A) 0.3 k/uL (0-0.7); Eosinophils % (A) 2 %; HCT 33.6 % (39.0-53.0); HGB 10.8 gm/dL (13.0-17.5); Lymphocytes # (A) 3.4 k/uL (1.0-4.8); Lymphocytes % (A) 24 %; MCV 90.5 fL (80.0-100.0); Mean Platelet Volume 8.6; Monocytes % (A) 7 %; Neutrophils # (A) 9.4 k/uL (1.3-7.7); Neutrophils % (A) 65 %; Platelet Count 285 k/uL (150-450); RBC 3.72 m/uL (4.30-5.90); RDW 13.8 % (11.5-15.5); WBC 14.4 k/uL (3.8-10.6)
[2023-05-07 08:49] LABS: African American GFR (CKD) >90 (>60 ml/min/1.73 sqM); Anion Gap 6 mmol/L; Blood Urea Nitrogen 16 mg/dL (9-20); Calcium 8.4 mg/dL (8.4-10.2); Carbon Dioxide 21 mmol/L (22-30); Chloride 109 mmol/L (98-107); Creatine Kinase 758 U/L (55-170); Glucose 126 mg/dL (74-99); Non-African American GFR(CKD) >90 (>60 ml/min/1.73 sqM); Potassium 3.5 mmol/L (3.5-5.1); Sodium 136 mmol/L (137-145)
[2023-05-07] MEDS ORDERED: HEPARIN SODIUM 1,000 UN/ML (10ML VL) IV PRN (09:55)
[2023-05-07] MEDS: HEPARIN SOD,PORK IN 0.45% NACL 25,000 UNIT in 0.45% NACL 1 250ML.BAG IV SCH (10:11)
--- NOTE | 2023-05-07 10:45 | P.PN ---
Subjective Progress Note Date: 05/07/23 Reason for Consult (text): NSTEMI History of present illness: History of present illness: This is an 82-year-old male patient of Dr. Joseph Dumont with past medical history of coronary artery disease status post CABG followed by stenting of the SVG to diagonal, hypertension, dyslipidemia, mild to moderate aortic stenosis, aortic regurgitation. We have been asked to evaluate the patient for non-ST elevated myocardial infarction. Patient was transferred from [facility] for non- ST elevated myocardial infarction and rhabdomyolysis. Patient had initial troponin of 14 with normal EKG and no chest pain. CK was greater than 8000 patient was started on IV hydration and transferred to [facility]. Patient had unknown time on the floor. Patient states she is he does have some body aches not clear history. EKG sinus rhythm with nonspecific ST changes. Chest x-ray: No acute process WBC 17.2, hemoglobin 13.4, platelet count 323. INR 1. Sodium 135, potassium 3.8, BUN 33 creatinine 0.63. Blood sugar 161. Magnesium 1.8. Total bilirubin 1.4, AST 291, ALT 75, alkaline phosphatase 90. CK 6591. Troponin 13.6, 12.1. proBNP 9490. Urinalysis protein 3+. Home cardiac medications: Aspirin 81 mg daily, atenolol 20 mg daily, atorvastati n 80 mg at bedtime, enalapril 2.5 mg daily, Lasix 10 mg daily, Nitrostat as needed. Echocardiogram performed 01/17/2023 in the office revealed EF 45%. Mild aortic regurgitation and moderate aortic stenosis. Aortic valve is calcified. Moderate mitral regurgitation, mild to moderate tricuspid regurgitation. Normal pulmonary artery systolic pressure. Mild to moderate colonic regurgitation. Cardiac catheterization history, 09/29/2020. Cardiac catheterization performed by Dr. 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 Camejo. Lexiscan stress test performed in the office on 05/19/2021 revealed a negative stress test by EKG criteria. Abnormal nuclear scan showing evidence of prior inferior wall myocardial infarction with mild LV dysfunction without any ischemia. 05/06 Yesterday he was resumed on his home cardiac medications except Lipitor is on hold due to rhabdomyolysis. Patient is been started on heparin drip which will be maintained for 1 more day. Patient was also on started on Imdur yesterday and denies having any chest pain today. Blood pressure 104/57, heart rate 76, pulse ox 95% on room air. Repeat blood work reveals WBC 14.8, hemoglobin 0.6. Chemistry is not available. Echocardiogram reveals EF of 50 to 55%. RVSP 26. Moderate to severe right atrial dilatation. Trace mitral regurgitation. Mild to moderate aortic stenosis. 05/07 Patient denies chest pain, shortness of breath. Noted that patient had 3 second pause on telemetry. Discussed option of cardiac cath and he is agreeable to more forward with this. BP 120/70, HR 72, PO 96% on 2L n/c. Echo reveals EF 50-55%, trace MR, mild to moderate . Physical examination: Gen: This is a 82-year-old male in no acute distress VS: reviewed HEENT: Ecchymosis on the face, normocephalic. Pupils equal, round. Sclerae is anicteric. LUNGS: Clear to auscultation. No wheezes or rhonchi. No intercostal retractions. HEART: Regular rate and rhythm. Systolic murmur. EXTREMITIES: Mild bilateral lower pedal edema. No calf tenderness. NEUROLOGICAL: Patient is awake. Assessment: Rhabdomyolysis Non-ST elevated myocardial infarction secondary to rhabdomyolysis, type II 3 second pause History of coronary artery disease status post CABG and PCI Hypertension Dyslipidemia Moderate aortic stenosis Plan: Resume patient's home cardiac medications: Aspirin, atenolol, Plavix. Continue to hold Lipitor Continue patient on Imdur 30 mg daily Continue heparin drip Plan for cardiac catheterization on Monday with Dr. Tim MARTINEZ after midnight on Monday night Further recommendations to follow based upon clinical course Nurse practitioner note has been reviewed, I agree with documented findings and plan of care. Patient was seen and examined. Objective - Vital Signs Vital signs: Vital Signs Temp 99.0 F 05/07/23 04:00 Pulse 72 05/07/23 04:00 Resp 18 05/07/23 04:00 BP 120/70 05/07/23 04:00 Pulse Ox 96 05/07/23 04:00 FiO2 Intake & Output 05/06/23 05/07/23 05/07/23 18:59 06:59 18:59 Intake Total 250 118 240 Balance 250 118 240 Intake: Intake, IV Titration 250 Amount Heparin Sod,Pork in 0.45% 250 NaCl 25,000 unit In 0.45 % NaCl 1 250ml.bag @ 9.52 UNITS/KG/HR 10.018 mls/ hr IV .Q24H [facility] Rx#: [id number] Oral 118 240 Other: Voiding Method Indwelling Catheter External Catheter # Bowel Movements 1 - Labs CBC & Chem 7: 05/07/23 07:36 05/07/23 07:36 Labs: Abnormal Lab Results - Last 24 Hours (Table) 05/07/23 05/07/23 05/07/23 Range/Units 07:36 07:36 07:36 WBC 14.4 H (3.8-10.6) k/uL RBC 3.72 L (4.30-5.90) m/uL Hgb 10.8 L (13.0-17.5) gm/dL Hct 33.6 L (39.0-53.0) % Neutrophils # 9.4 H (1.3-7.7) k/uL APTT 44.5 H (22.0-30.0) sec Sodium 136 L (137-145) mmol/L Chloride 109 H (98-107) mmol/L Carbon Dioxide 21 L (22-30) mmol/L Creatinine 0.50 L (0.66-1.25) mg/dL Glucose 126 H (74-99) mg/dL Creatine Kinase 758 H (55-170) U/L
[2023-05-08] MEDS ORDERED: IPRATROPIUM-ALBUTEROL 3 ML NEB INHALATION PRN (04:11)
[2023-05-08] MEDS ORDERED: NITROGLYCERIN SL TABS 0.4 MG TAB SUBLINGUAL PRN (07:47)
[2023-05-08] MEDS ORDERED: ALPRAZolam 0.5 MG TAB PO PRN (07:47)
--- NOTE | 2023-05-08 08:20 | XR ---
EXAMINATION TYPE: XR chest 2V DATE OF EXAM: 05/08/2023 8:14 AM CLINICAL INDICATION:Male, 82 years old with history of dyspnea; [facility] COMPARISON: Chest radiographs from 05/05/2023. TECHNIQUE: XR chest 2V Frontal and lateral views of the chest. FINDINGS: Lungs/Pleura: There is no evidence of pleural effusion, focal consolidation, or pneumothorax. Pulmonary vascularity: Pulmonary vascular congestion. Heart/mediastinum: Cardiomediastinal silhouette is enlarged and stable. Musculoskeletal: No acute osseous pathology. Midline sternotomy wires are noted. Other findings: None IMPRESSION: Cardiomegaly and mild pulmonary vascular congestion. Correlate with BNP for congestive heart failure.
[2023-05-08] MEDS: HEPARIN SODIUM,PORCINE 5,000 UNIT/ML 1 ML VIAL SQ SCH (08:58)
[2023-05-08 09:57] LABS: ALT 39 U/L (4-49); AST 58 U/L (17-59); African American GFR (CKD) >90 (>60 ml/min/1.73 sqM); Albumin 3.1 g/dL (3.5-5.0); Alkaline Phosphatase 75 U/L (38-126); Anion Gap 7 mmol/L; Blood Urea Nitrogen 15 mg/dL (9-20); Calcium 8.6 mg/dL (8.4-10.2); Carbon Dioxide 22 mmol/L (22-30); Chloride 108 mmol/L (98-107); Glucose 199 mg/dL (74-99); Non-African American GFR(CKD) >90 (>60 ml/min/1.73 sqM); Sodium 137 mmol/L (137-145); Total Bilirubin 0.7 mg/dL (0.2-1.3)
[2023-05-08 09:58] LABS: Potassium 3.2 mmol/L (3.5-5.1)
[2023-05-08] MEDS: POTASSIUM CHLORIDE ER 20 MEQ TAB.ER PO SCH (11:05)
--- NOTE | 2023-05-08 11:55 | P.PN ---
Subjective HISTORY OF PRESENT ILLNESS: This is an 82-year-old male patient of Dr. Joseph Dumont with past medical history of coronary artery disease status post CABG followed by stenting of the SVG to diagonal, hypertension, dyslipidemia, mild to moderate aortic stenosis, aortic regurgitation. We have been asked to evaluate the patient for non-ST elevated myocardial infarction. Patient was transferred from [facility] for non- ST elevated myocardial infarction and rhabdomyolysis. Patient had initial troponin of 14 with normal EKG and no chest pain. CK was greater than 8000 patient was started on IV hydration and transferred to [facility]. Patient had unknown time on the floor. Patient states she is he does have some body aches not clear history. EKG sinus rhythm with nonspecific ST changes. Chest x-ray: No acute process WBC 17.2, hemoglobin 13.4, platelet count 323. INR 1. Sodium 135, potassium 3.8, BUN 33 creatinine 0.63. Blood sugar 161. Magnesium 1.8. Total bilirubin 1.4, AST 291, ALT 75, alkaline phosphatase 90. CK 6591. Troponin 13.6, 12.1. proBNP 9490. Urinalysis protein 3+. Home cardiac medications: Aspirin 81 mg daily, atenolol 20 mg daily, atorvastatin 80 mg at bedtime, enalapril 2.5 mg daily, Lasix 10 mg daily, Nitrostat as needed. Echocardiogram performed 01/17/2023 in the office revealed EF 45%. Mild aortic regurgitation and moderate aortic stenosis. Aortic valve is calcified. Moderate mitral regurgitation, mild to moderate tricuspid regurgitation. Normal pulmonary artery systolic pressure. Mild to moderate colonic regurgitation. Cardiac catheterization history, 09/29/2020. Cardiac catheterization performed by Dr. 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 Camejo. Lexiscan stress test performed in the office on 05/19/2021 revealed a negative stress test by EKG criteria. Abnormal nuclear scan showing evidence of prior inferior wall myocardial infarction with mild LV dysfunction without any ischemia. 05/06 Yesterday he was resumed on his home cardiac medications except Lipitor is on hold due to rhabdomyolysis. Patient is been started on heparin drip which will be maintained for 1 more day. Patient was also on started on Imdur yesterday and denies having any chest pain today. Blood pressure 104/57, heart rate 76, pulse ox 95% on room air. Repeat blood work reveals WBC 14.8, hemoglobin 0.6. Chemistry is not available. Echocardiogram reveals EF of 50 to 55%. RVSP 26. Moderate to severe right atrial dilatation. Trace mitral regurgitation. Mild to moderate aortic stenosis. 05/07 Patient denies chest pain, shortness of breath. Noted that patient had 3 second pause on telemetry. Discussed option of cardiac cath and he is agreeable to more forward with this. BP 120/70, HR 72, PO 96% on 2L n/c. Echo reveals EF 50-55%, trace MR, mild to moderate . 05/08/2023 Patient examined this morning. Patient is sitting up in the chair. Patient denies any chest pain or pressure. He denies any shortness of breath. He remains on IV heparin. Vital signs are stable. PHYSICAL EXAM: VITAL SIGNS: Reviewed. GENERAL: Well-developed in no acute distress. NECK: Supple. No JVD or thyromegaly LUNGS: Respirations even and unlabored. Lungs essentially clear to auscultation bilaterally. HEART: Regular rate and rhythm. S1 and S2 heard. Systolic murmur noted EXTREMITIES: Normal range of motion. No clubbing or cyanosis. Peripheral pulses intact. Trace bilateral lower extremity edema ASSESSMENT: Rhabdomyolysis Non-ST elevated myocardial infarction secondary to rhabdomyolysis, type II 3 second pause History of coronary artery disease status post CABG and PCI Hypertension Dyslipidemia Moderate aortic stenosis Transaminitis, resolved PLAN: Continue current cardiac medications Resume atorvastatin to begin tomorrow night Discontinue heparin drip N.p.o. at midnight Patient to undergo cardiac catheterization tomorrow morning with Dr. Dumont Further recommendations pending patient course Nurse practitioner note has been reviewed by physician. Signing provider agrees with the documented findings, assessment, and plan of care documented by [employer] as a scribe. Objective - Vital Signs Vital signs: Vital Signs Temp 97.8 F 05/08/23 08:48 Pulse 77 05/08/23 08:48 Resp 22 05/08/23 08:48 BP 110/62 05/08/23 08:48 Pulse Ox 96 05/08/23 08:48 FiO2 Intake & Output 05/07/23 05/08/23 05/08/23 18:59 06:59 18:59 Intake Total 600 250 Output Total 850 350 Balance -250 -100 Intake: Intake, IV Titration 250 Amount Heparin Sod,Pork in 0.45% 250 NaCl 25,000 unit In 0.45 % NaCl 1 250ml.bag @ 13.5 UNITS/KG/HR 14.206 mls/ hr IV .[id number] [facility] Rx#: [id number] Oral 600 Output: Urine 850 350 Other: Voiding Method External Catheter External Catheter External Catheter # Bowel Movements 1 - Labs CBC & Chem 7: 05/07/23 07:36 05/08/23 09:11 Labs: Abnormal Lab Results - Last 24 Hours (Table) 05/08/23 05/08/23 05/08/23 Range/Units 07:07 07:07 09:11 APTT 44.2 H (22.0-30.0) sec Potassium 3.2 L (3.5-5.1) mmol/L Chloride 108 H (98-107) mmol/L Creatinine 0.57 L (0.66-1.25) mg/dL Glucose 199 H (74-99) mg/dL Creatine Kinase 373 H (55-170) U/L Total Protein 6.0 L (6.3-8.2) g/dL Albumin 3.1 L (3.5-5.0) g/dL
[2023-05-08] MEDS: FUROSEMIDE 10 MG/ML 2 ML VIAL IV SCH (15:14)
--- NOTE | 2023-05-08 16:20 | CDI ---
Documentation Clarification Form Date: 05/08/2023 02:09:08 PM From: Marcelle Chávez RN, CCDS Email: [email or web address] Admit Date: 05/05/2023 02:53:00 AM Patient Name: Aquilino Pratt Visit Number: [id number] Discharge Date: ATTENTION: The Clinical Documentation Specialists (CDI) and [facility] Coding Staff appreciate your assistance in clarifying documentation. Please respond to the clarification below the line at the bottom and electronically sign. The CDI & [facility] Coding staff will review the response and follow-up if needed. Please note: Queries are made part of the Legal Health Record. If you have any questions, please contact the author of this message via ITS. Dr. Judy Conde Rhabdomyolysis is documented in the ED, H&P and progress notes. Additional clarification regarding the type of rhabdomyolysis is requested. 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 Presents after a fall. Transfer from outside hospital for NSTEMI and rhabdomyolysis. Clinical Indicators: 05/05 ED: "Unknown how long he was on the ground. Fall, NSTEMI, Rhabdomyolysis, Constipation." 05/05 Cardiology consult: "Rhabdomyolysis. Non-ST elevated myocardial infarction secondary to rhabdomyolysis, type II." 05/05 H&P: "CC: fall/rhabdomyolysis. Rhabdomyolysis; remains on IV fluids." 05/05-05/08 CK: [id number] 05/05 troponin: 13.600-12.100-9.550 Treatment: Monitor CPK levels; Hold Lipitor; IV 0.9 NS 1L bolus on 05/05 then 130mL/hr 05/05-05/06 then 75mL/hr 05/05-05/07 Please clarify the type of rhabdomyolysis, if known: [ ] Traumatic rhabdomyolysis due to fall [ ] Traumatic rhabdomyolysis due to prolonged immobility [ ] Non traumatic rhabdomyolysis due to medication (please specify) [ ] Non traumatic rhabdomyolysis due to infection (please specify) [ ] Other, please specify [ ### ] Unable to Determine MTDD
--- NOTE | 2023-05-08 22:24 | P.PN ---
Subjective Progress Note Date: 05/08/23 Patient is evaluated today on the stepdown unit. He currently reports shortness of breath, he is maintained on 3 L of oxygen via nasal cannula. Chest x-ray this morning shows cardiomegaly and mild pulmonary vascular congestion. His echocardiac comes back with an EF of 50 to 55% with a moderate aortic stenosis. Creatinine is trending downwards and 370 renal function is normalizing. He does report feeling sore mainly over the left rib cage with aches all over secondary to fall. Patient is scheduled to undergo cardiac catheterization tomorrow. Review of Systems Constitutional: Denied any fatigue denied any fever. Cardio vascular: denied any chest pain, palpitations Gastrointestinal: denied any nausea, vomiting, diarrhea Pulmonary: Denied any shortness of breath cough Neurologic denied any new focal deficits All inpatient medications were reviewed and appropriate changes in these medications as dictated in the interval history and assessment and plan. PHYSICAL EXAMINATION: GENERAL: The patient is alert and oriented x3, not in any acute distress. Well developed, well nourished. HEENT: Pupils are round and equally reacting to light. EOMI. No scleral icterus. No conjunctival pallor. Normocephalic, atraumatic. No pharyngeal erythema. No thyromegaly. CARDIOVASCULAR: S1 and S2 present. No murmurs, rubs, or gallops. PULMONARY: Chest is clear to auscultation, no wheezing or crackles. ABDOMEN: Soft, nontender, nondistended, normoactive bowel sounds. No palpable organomegaly. MUSCULOSKELETAL: No joint swelling or deformity. EXTREMITIES: No cyanosis, clubbing, or pedal edema. NEUROLOGICAL: Gross neurological examination did not reveal any focal deficits. SKIN: No rashes. Assessment and plan Rhabdomyolysis secondary to fall Leukocytosis likely reactive to the fall Troponin elevation and non-ST elevation myocardial infarction this is likely due to the rhabdomyolysis considered a type II AR History of coronary artery disease with prior CABG and stenting Hypertension Moderate aortic stenosis Gastroesophageal reflux disease Osteoarthritis Former smoker GI prophylaxis DVT prophylaxis Subcu heparin Full code Patient scheduled to undergo cardiac catheterization tomorrow. Due to the shortness of breath and the vascular congestion noted on chest x-ray we will recommend to start patient on IV Lasix 20 mg every 12 hours. Repeat labs in the morning. The impression and plan of care has been dictated by Leah Cadena, Nurse Practitioner as directed. Dr. Calvin MD I have performed a history and physical examination and medical decision making of this patient, discussed the same with the dictator, and agree with the dictators assessment and plan as written, documented as a scribe. Based on total visit time, I have performed more than 50% of this visit. Objective - Vital Signs Vital signs: Vital Signs Temp 97.8 F 05/08/23 08:48 Pulse 77 05/08/23 08:48 Resp 22 05/08/23 08:48 BP 110/62 05/08/23 08:48 Pulse Ox 96 05/08/23 08:48 FiO2 Intake & Output 05/07/23 05/08/23 05/08/23 18:59 06:59 18:59 Intake Total 600 250 Output Total 850 350 Balance -250 -100 Intake: Intake, IV Titration 250 Amount Heparin Sod,Pork in 0.45% 250 NaCl 25,000 unit In 0.45 % NaCl 1 250ml.bag @ 13.5 UNITS/KG/HR 14.206 mls/ hr IV .[id number] [facility] Rx#: [id number] Oral 600 Output: Urine 850 350 Other: Voiding Method External Catheter External Catheter External Catheter # Bowel Movements 1 - Labs CBC & Chem 7: 05/07/23 07:36 05/08/23 09:11 Labs: Abnormal Lab Results - Last 24 Hours (Table) 05/08/23 05/08/23 05/08/23 Range/Units 07:07 07:07 09:11 APTT 44.2 H (22.0-30.0) sec Potassium 3.2 L (3.5-5.1) mmol/L Chloride 108 H (98-107) mmol/L Creatinine 0.57 L (0.66-1.25) mg/dL Glucose 199 H (74-99) mg/dL Creatine Kinase 373 H (55-170) U/L Total Protein 6.0 L (6.3-8.2) g/dL Albumin 3.1 L (3.5-5.0) g/dL Assessment and Plan Time with Patient: Less than 30
[2023-05-09] MEDS: SODIUM CHLORIDE 0.9% 1,000 ML in EMPTY BAG 1 BAG IV SCH (02:06)
[2023-05-09] MEDS: ASPIRIN 325 MG TAB PO ONE (05:28)
[2023-05-09] MEDS: ATORVASTATIN 80 MG TAB PO ONE (05:29)
[2023-05-09] MEDS ORDERED: HEPARIN SODIUM,PORCINE (1 ML) 2,500 UNIT in SODIUM CHLORIDE 0.9% 250 ML IRRIGATION PRN (07:00)
[2023-05-09] MEDS ORDERED: HEPARIN SODIUM,PORCINE 10,000 UNIT in SODIUM CHLORIDE 0.9% 1,000 ML IRRIGATION PRN (07:00)
[2023-05-09] MEDS ORDERED: LIDOCAINE 1% INJ 10MG/ML (20 ML MDV) ONE (07:14)
[2023-05-09] MEDS ORDERED: VERAPAMIL 2.5 MG/ML 2 ML AMP ONE (07:14)
[2023-05-09] MEDS ORDERED: fentaNYL (PF) 50 MCG/ML 2 ML AMP ONE (07:25)
[2023-05-09] MEDS: IV FLUID CONTINUATION 1,000 ML IV ONE (07:26)
[2023-05-09] MEDS: fentaNYL (PF) 50 MCG/1 ML VIAL IVP ONE (07:26)
[2023-05-09] MEDS: MIDAZOLAM 2 MG/2 ML VIAL IVP ONE (07:26)
[2023-05-09] MEDS: LIDOCAINE 1% INJ 10MG/ML (20 ML MDV) SQ ONE (07:27)
[2023-05-09] MEDS: IOPAMIDOL-370 100ML BTL INJ ONE (07:57)
--- NOTE | 2023-05-09 08:34 | CC ---
CARDIAC CATHETERIZATION REPORT INDICATION: Acute [id number] elevation [place]. PROCEDURE NOTE: After obtaining informed consent, left heart catheterization and coronary angiogram and selective injection of the bypass grafts were performed via the right femoral artery using standard Ubaldo catheters. The patient tolerated the procedure well without any obvious immediate complications. A femoral angiogram was performed, and Angio-Seal was deployed for hemostasis. The patient received moderate conscious sedation. Total sedation time was 34 minutes. FINDINGS: 1. Hemodynamics: Left ventricular end-diastolic pressure is 18 to 20 mm. There is no significant gradient across the aortic valve. 2. Left ventriculogram: Left ventriculogram was not performed. 3. Angiographic data: a.[place] coronary arteries. Right coronary artery is a large dominant vessel that is heavily calcified, shows a focal 90% stenosis proximally and the PDA is totally occluded. Left main coronary artery appears calcified, shows 99% stenosis in the proximal portion. He can barely visualize the LAD and circ, which are both proximally occluded. 4. Selective injection of the bypass grafts: a.ASHBY to LAD appears patent. Proximal and distal anastomotic sites are free of disease and the body of the graft is free of disease. b.Venous graft to the right coronary artery is patent. Body of the graft is free of disease. Anastomotic sites are free of disease. c. Radial artery graft to OM appears patent. d.Venous graft to the diagonal that was previously stented appears patent. CONCLUSION: 1. Severe three-vessel coronary artery disease. 2. Patent ASHBY to LAD, venous graft to right coronary artery, patent radial artery graft to the OM branch and patent venous graft to the diagonal with no evidence of stenosis involving the previously stented segment. PLAN: Patient's management is going to be in the form of medical therapy and risk factor modification. I am going to perform an event monitor and discharge to rule out bradycardia as an etiology for his syncope. MMODL / IJN: [id number] /
[2023-05-09] MEDS: FUROSEMIDE 20 MG TAB PO SCH (09:22)
[2023-05-09 12:01] LABS: Basophils # (A) 0.1 k/uL (0-0.2); Basophils % (A) 1 %; Eosinophils # (A) 0.4 k/uL (0-0.7); Eosinophils % (A) 3 %; HCT 34.8 % (39.0-53.0); HGB 11.3 gm/dL (13.0-17.5); Lymphocytes % (A) 21 %; MCH 29.4 pg (25.0-35.0); MCHC 32.4 g/dL (31.0-37.0); MCV 90.8 fL (80.0-100.0); Mean Platelet Volume 8.5; Monocytes # (A) 1.1 k/uL (0-1.0); Monocytes % (A) 8 %; Neutrophils # (A) 9.4 k/uL (1.3-7.7); Neutrophils % (A) 66 %; Platelet Count 322 k/uL (150-450); RBC 3.84 m/uL (4.30-5.90); RDW 13.6 % (11.5-15.5); WBC 14.2 k/uL (3.8-10.6)
--- NOTE | 2023-05-09 12:12 | P.PN ---
Subjective HISTORY OF PRESENT ILLNESS: This is an 82-year-old male patient of Dr. Joseph Dumont with past medical history of coronary artery disease status post CABG followed by stenting of the SVG to diagonal, hypertension, dyslipidemia, mild to moderate aortic stenosis, aortic regurgitation. We have been asked to evaluate the patient for non-ST elevated myocardial infarction. Patient was transferred from [facility] for non- ST elevated myocardial infarction and rhabdomyolysis. Patient had initial troponin of 14 with normal EKG and no chest pain. CK was greater than 8000 patient was started on IV hydration and transferred to [facility]. Patient had unknown time on the floor. Patient states she is he does have some body aches not clear history. EKG sinus rhythm with nonspecific ST changes. Chest x-ray: No acute process WBC 17.2, hemoglobin 13.4, platelet count 323. INR 1. Sodium 135, potassium 3.8, BUN 33 creatinine 0.63. Blood sugar 161. Magnesium 1.8. Total bilirubin 1.4, AST 291, ALT 75, alkaline phosphatase 90. CK 6591. Troponin 13.6, 12.1. proBNP 9490. Urinalysis protein 3+. Home cardiac medications: Aspirin 81 mg daily, atenolol 20 mg daily, atorvastatin 80 mg at bedtime, enalapril 2.5 mg daily, Lasix 10 mg daily, Nitrostat as needed. Echocardiogram performed 01/17/2023 in the office revealed EF 45%. Mild aortic regurgitation and moderate aortic stenosis. Aortic valve is calcified. Moderate mitral regurgitation, mild to moderate tricuspid regurgitation. Normal pulmonary artery systolic pressure. Mild to moderate colonic regurgitation. Cardiac catheterization history, 09/29/2020. Cardiac catheterization performed by Dr. 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 Camejo. Lexiscan stress test performed in the office on 05/19/2021 revealed a negative stress test by EKG criteria. Abnormal nuclear scan showing evidence of prior inferior wall myocardial infarction with mild LV dysfunction without any ischemia. 05/06 Yesterday he was resumed on his home cardiac medications except Lipitor is on hold due to rhabdomyolysis. Patient is been started on heparin drip which will be maintained for 1 more day. Patient was also on started on Imdur yesterday and denies having any chest pain today. Blood pressure 104/57, heart rate 76, pulse ox 95% on room air. Repeat blood work reveals WBC 14.8, hemoglobin 0.6. Chemistry is not available. Echocardiogram reveals EF of 50 to 55%. RVSP 26. Moderate to severe right atrial dilatation. Trace mitral regurgitation. Mild to moderate aortic stenosis. 05/07 Patient denies chest pain, shortness of breath. Noted that patient had 3 second pause on telemetry. Discussed option of cardiac cath and he is agreeable to more forward with this. BP 120/70, HR 72, PO 96% on 2L n/c. Echo reveals EF 50-55%, trace MR, mild to moderate . 05/08/2023 Patient examined this morning. Patient is sitting up in the chair. Patient denies any chest pain or pressure. He denies any shortness of breath. He remains on IV heparin. Vital signs are stable. 05/09/2023 Patient examined this morning at the bedside. He is status postcardiac catheterization revealing severe three-vessel coronary artery disease. Patent ASHBY to LAD, VG to RCA, patent radial artery graft to the OM branch and patent venous graft to the diagonal with no evidence of stenosis involving the previously stented segment. Medical management was recommended. Patient denies any chest pain or pressure. He denies any shortness of breath. Vital signs are stable. PHYSICAL EXAM: VITAL SIGNS: Reviewed. GENERAL: Well-developed in no acute distress. NECK: Supple. No JVD or thyromegaly LUNGS: Respirations even and unlabored. Lungs essentially clear to auscultation bilaterally. HEART: Regular rate and rhythm. S1 and S2 heard. Systolic murmur noted EXTREMITIES: Normal range of motion. No clubbing or cyanosis. Peripheral pulses intact. Trace bilateral lower extremity edema ASSESSMENT: Rhabdomyolysis Non-ST elevated myocardial infarction secondary to rhabdomyolysis, type II 3 second pause History of coronary artery disease status post CABG and PCI Hypertension Dyslipidemia Moderate aortic stenosis Transaminitis, resolved PLAN: Discontinue IV Lasix. Begin oral Lasix 20 mg daily Discontinue Imdur Continue additional cardiac medications Patient to receive 2-week event monitor at the time of discharge Patient is stable for discharge home today from a cardiac standpoint He is to follow-up postdischarge with Dr. Dumont Nurse practitioner note has been reviewed by physician. Signing provider agrees with the documented findings, assessment, and plan of care documented by [employer]PA[employer] HELPER as a scribe. Objective - Vital Signs Vital signs: Vital Signs Temp 97.3 F L 05/09/23 08:05 Pulse 79 05/09/23 10:50 Resp 20 05/09/23 10:50 BP 128/79 05/09/23 10:50 Pulse Ox 97 05/09/23 10:50 FiO2 Intake & Output 05/08/23 05/09/23 05/09/23 18:59 06:59 18:59 Intake Total 120 100 Output Total 800 700 Balance -800 -580 100 Weight 110.5 kg Intake: IV 100 Oral 120 Output: Urine 800 700 Other: Voiding Method Urinal External Catheter External Catheter External Catheter # Voids 2 # Bowel Movements 1 2 - Labs CBC & Chem 7: 05/09/23 11:01 05/08/23 09:11 Labs: Abnormal Lab Results - Last 24 Hours (Table) 05/09/23 Range/Units 11:01 WBC 14.2 H (3.8-10.6) k/uL RBC 3.84 L (4.30-5.90) m/uL Hgb 11.3 L (13.0-17.5) gm/dL Hct 34.8 L (39.0-53.0) % Neutrophils # 9.4 H (1.3-7.7) k/uL Monocytes # 1.1 H (0-1.0) k/uL
[2023-05-09 12:22] LABS: African American GFR (CKD) >90 (>60 ml/min/1.73 sqM); Anion Gap 10 mmol/L; Blood Urea Nitrogen 14 mg/dL (9-20); Calcium 8.7 mg/dL (8.4-10.2); Carbon Dioxide 22 mmol/L (22-30); Chloride 103 mmol/L (98-107); Glucose 129 mg/dL (74-99); Magnesium 1.6 mg/dL (1.6-2.3); Non-African American GFR(CKD) >90 (>60 ml/min/1.73 sqM); Potassium 3.4 mmol/L (3.5-5.1); Sodium 135 mmol/L (137-145)
[2023-05-09] MEDS ORDERED: QUEtiapine 25 MG TAB PO PRN (12:45)
--- NOTE | 2023-05-09 15:30 | P.PN ---
Subjective Progress Note Date: 05/09/23 Patient is evaluated today on the stepdown unit. He currently reports shortness of breath, he is maintained on 3 L of oxygen via nasal cannula. Chest x-ray this morning shows cardiomegaly and mild pulmonary vascular congestion. His echocardiac comes back with an EF of 50 to 55% with a moderate aortic stenosis. Creatinine is trending downwards and 370 renal function is normalizing. He does report feeling sore mainly over the left rib cage with aches all over secondary to fall. Patient is scheduled to undergo cardiac catheterization tomorrow. 05/09/2023 Patient is evaluated resting in bed he has minimal confusion. He does continue to report shortness of breath however states that it is improved from yesterday. He has been transition to oral Lasix daily. Sodium was 135, potassium 3.4. He underwent cardiac catheterization revealing severe three-vessel coronary artery disease with patent ASHBY to LAD, venous graft to right coronary artery, patent radial artery graft to the OM branch and patent venous graft to the diagonal with no evidence of stenosis involving the previously stented segment. Patient will be managed medically with risk factor modification. Patient will have an event monitor placed prior to discharge to monitor for bradycardia as an etiology for the syncope this is a recommendation from cardiology. Review ofSystems Constitutional: Denied any fatigue denied any fever. Cardio vascular: denied any chest pain, palpitations Gastrointestinal: denied any nausea, vomiting, diarrhea Pulmonary: Denied any shortness of breath cough Neurologic denied any new focal deficits All inpatient medications were reviewed and appropriate changes in these medications as dictated in the interval history and assessment and plan. PHYSICAL EXAMINATION: GENERAL: The patient is alert and oriented x3, not in any acute distress. Well developed, well nourished. HEENT: Pupils are round and equally reacting to light. EOMI. No scleral icterus. No conjunctival pallor. Normocephalic, atraumatic. No pharyngeal erythema. No thyromegaly. CARDIOVASCULAR: S1 and S2 present. No murmurs, rubs, or gallops. PULMONARY: Chest is clear to auscultation, no wheezing or crackles. ABDOMEN: Soft, nontender, nondistended, normoactive bowel sounds. No palpable organomegaly. MUSCULOSKELETAL: No joint swelling or deformity. EXTREMITIES: No cyanosis, clubbing, or pedal edema. NEUROLOGICAL: Gross neurological examination did not reveal any focal deficits. SKIN: No rashes. Assessment and plan Rhabdomyolysis secondary to fall Leukocytosis likely reactive to the fall Troponin elevation and non-ST elevation myocardial infarction this is likely due to the rhabdomyolysis considered a type II [place] History of coronary artery disease with prior CABG and stenting cardiac catheterization reveals patent grafts with underlying yuhaaviatam coronary artery disease severe triple-vessel Hypertension Moderate aortic stenosis Gastroesophageal reflux disease Osteoarthritis Former smoker GI prophylaxis DVT prophylaxis Subcu heparin Full code Patient scheduled to undergo cardiac catheterization tomorrow. Due to the shortness of breath and the vascular congestion noted on chest x-ray we will recommend to start patient on IV Lasix 20 mg every 12 hours. Repeat labs in the morning. The impression and plan of care has been dictated by Leah Cadena, Nurse Practitioner as directed. Dr. Calvin MD I have performed a history and physical examination and medical decision making of this patient, discussed the same with the dictator, and agree with the dictators assessment and plan as written, documented as a scribe. Based on total visit time, I have performed more than 50% of this visit. Objective - Vital Signs Vital signs: Vital Signs Temp 97.3 F L 05/09/23 08:05 Pulse 85 05/09/23 11:50 Resp 20 05/09/23 11:50 BP 134/80 05/09/23 11:50 Pulse Ox 97 05/09/23 11:50 FiO2 Intake & Output 05/08/23 05/09/23 05/09/23 18:59 06:59 18:59 Intake Total 120 100 Output Total 800 700 550 Balance -800 -580 -450 Weight 110.5 kg Intake: IV 100 Oral 120 Output: Urine 800 700 550 Other: Voiding Method Urinal External Catheter External Catheter External Catheter # Voids 2 # Bowel Movements 1 2 - Labs CBC & Chem 7: 05/09/23 11:01 05/09/23 11:01 Labs: Abnormal Lab Results - Last 24 Hours (Table) 05/09/23 05/09/23 Range/Units 11:01 11:01 WBC 14.2 H (3.8-10.6) k/uL RBC 3.84 L (4.30-5.90) m/uL Hgb 11.3 L (13.0-17.5) gm/dL Hct 34.8 L (39.0-53.0) % Neutrophils # 9.4 H (1.3-7.7) k/uL Monocytes # 1.1 H (0-1.0) k/uL Sodium 135 L (137-145) mmol/L Potassium 3.4 L (3.5-5.1) mmol/L Creatinine 0.48 L (0.66-1.25) mg/dL Glucose 129 H (74-99) mg/dL Assessment and Plan Time with Patient: Less than 30
[2023-05-09] MEDS: ATORVASTATIN 80 MG TAB PO SCH (21:53)
[2023-05-10] MEDS: ASPIRIN 81 MG PO SCH (08:47)
[2023-05-10 11:42] LABS: African American GFR (CKD) >90 (>60 ml/min/1.73 sqM); Anion Gap 5 mmol/L; Blood Urea Nitrogen 15 mg/dL (9-20); Calcium 8.5 mg/dL (8.4-10.2); Carbon Dioxide 27 mmol/L (22-30); Chloride 103 mmol/L (98-107); Glucose 214 mg/dL (74-99); Non-African American GFR(CKD) >90 (>60 ml/min/1.73 sqM); Potassium 3.3 mmol/L (3.5-5.1); Sodium 135 mmol/L (137-145)
[2023-05-10] MEDS: ALPRAZolam 0.25 MG TAB PO PRN (11:55)
--- NOTE | 2023-05-10 12:40 | P.PN ---
Subjective HISTORY OF PRESENT ILLNESS: This is an 82-year-old male patient of Dr. Joseph Dumont with past medical history of coronary artery disease status post CABG followed by stenting of the SVG to diagonal, hypertension, dyslipidemia, mild to moderate aortic stenosis, aortic regurgitation. We have been asked to evaluate the patient for non-ST elevated myocardial infarction. Patient was transferred from [facility] for non- ST elevated myocardial infarction and rhabdomyolysis. Patient had initial troponin of 14 with normal EKG and no chest pain. CK was greater than 8000 patient was started on IV hydration and transferred to [facility]. Patient had unknown time on the floor. Patient states she is he does have some body aches not clear history. EKG sinus rhythm with nonspecific ST changes. Chest x-ray: No acute process WBC 17.2, hemoglobin 13.4, platelet count 323. INR 1. Sodium 135, potassium 3.8, BUN 33 creatinine 0.63. Blood sugar 161. Magnesium 1.8. Total bilirubin 1.4, AST 291, ALT 75, alkaline phosphatase 90. CK 6591. Troponin 13.6, 12.1. proBNP 9490. Urinalysis protein 3+. Home cardiac medications: Aspirin 81 mg daily, atenolol 20 mg daily, atorvastatin 80 mg at bedtime, enalapril 2.5 mg daily, Lasix 10 mg daily, Nitrostat as needed. Echocardiogram performed 01/17/2023 in the office revealed EF 45%. Mild aortic regurgitation and moderate aortic stenosis. Aortic valve is calcified. Moderate mitral regurgitation, mild to moderate tricuspid regurgitation. Normal pulmonary artery systolic pressure. Mild to moderate colonic regurgitation. Cardiac catheterization history, 09/29/2020. Cardiac catheterization performed by Dr. 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 Camejo. Lexiscan stress test performed in the office on 05/19/2021 revealed a negative stress test by EKG criteria. Abnormal nuclear scan showing evidence of prior inferior wall myocardial infarction with mild LV dysfunction without any ischemia. 05/06 Yesterday he was resumed on his home cardiac medications except Lipitor is on hold due to rhabdomyolysis. Patient is been started on heparin drip which will be maintained for 1 more day. Patient was also on started on Imdur yesterday and denies having any chest pain today. Blood pressure 104/57, heart rate 76, pulse ox 95% on room air. Repeat blood work reveals WBC 14.8, hemoglobin 0.6. Chemistry is not available. Echocardiogram reveals EF of 50 to 55%. RVSP 26. Moderate to severe right atrial dilatation. Trace mitral regurgitation. Mild to moderate aortic stenosis. 05/07 Patient denies chest pain, shortness of breath. Noted that patient had 3 second pause on telemetry. Discussed option of cardiac cath and he is agreeable to more forward with this. BP 120/70, HR 72, PO 96% on 2L n/c. Echo reveals EF 50-55%, trace MR, mild to moderate . 05/08/2023 Patient examined this morning. Patient is sitting up in the chair. Patient denies any chest pain or pressure. He denies any shortness of breath. He remains on IV heparin. Vital signs are stable. 05/09/2023 Patient examined this morning at the bedside. He is status postcardiac catheterization revealing severe three-vessel coronary artery disease. Patent ASHBY to LAD, VG to RCA, patent radial artery graft to the OM branch and patent venous graft to the diagonal with no evidence of stenosis involving the previously stented segment. Medical management was recommended. Patient denies any chest pain or pressure. He denies any shortness of breath. Vital signs are stable. 05/10/2023 Patient examined this morning at bedside. Patient denies chest pain or pressure. He denies shortness of breath. Vital signs are stable. Patient had event monitor placed yesterday. PHYSICAL EXAM: VITAL SIGNS: Reviewed. GENERAL: Well-developed in no acute distress. NECK: Supple. No JVD or thyromegaly LUNGS: Respirations even and unlabored. Lungs essentially clear to auscultation bilaterally. HEART: Regular rate and rhythm. S1 and S2 heard. Systolic murmur noted EXTREMITIES: Normal range of motion. No clubbing or cyanosis. Peripheral pulses intact. Trace bilateral lower extremity edema ASSESSMENT: Rhabdomyolysis Non-ST elevated myocardial infarction secondary to rhabdomyolysis, type II 3 second pause History of coronary artery disease status post CABG and PCI Hypertension Dyslipidemia Moderate aortic stenosis Transaminitis, resolved PLAN: Continue current cardiac medications Patient received event monitor yesterday Patient is stable for discharge home today from a cardiac standpoint He is to follow-up postdischarge with Dr. Dumont Nurse practitioner note has been reviewed by physician. Signing provider agrees with the documented findings, assessment, and plan of care documented by VETERINARY INSPECTOR as a scribe. Objective - Vital Signs Vital signs: Vital Signs Temp 97.6 F 05/10/23 11:41 Pulse 68 05/10/23 11:41 Resp 20 05/10/23 11:41 BP 90/59 05/10/23 11:41 Pulse Ox 93 L 05/10/23 11:41 FiO2 Intake & Output 05/09/23 05/10/23 05/10/23 18:59 06:59 18:59 Intake Total 818 120 Output Total 1150 300 Balance -332 -300 120 Intake: IV 100 Intake, IV Titration 600 Amount Sodium Chloride 0.9% 1, 600 000 ml In Empty Bag 1 bag @ 1 ML/KG/HR 105.233 mls /hr IV .[id number] [facility] Rx#: [id number] Oral 118 120 Output: Urine 1150 300 Other: Voiding Method External Catheter External Catheter - Labs CBC & Chem 7: 05/09/23 11:01 05/10/23 10:36 Labs: Abnormal Lab Results - Last 24 Hours (Table) 05/10/23 Range/Units 10:36 Sodium 135 L (137-145) mmol/L Potassium 3.3 L (3.5-5.1) mmol/L Creatinine 0.56 L (0.66-1.25) mg/dL Glucose 214 H (74-99) mg/dL
--- NOTE | 2023-05-10 13:11 | XR ---
EXAMINATION TYPE: XR chest 1V DATE OF EXAM: 05/10/2023 COMPARISON: NONE HISTORY: Shortness of breath. TECHNIQUE: Single frontal view of the chest is obtained. FINDINGS: The cardiac silhouette is mildly enlarged and there is a small left pleural effusion. Ther e is no focal area of consolidation otherwise seen. No significant edema is identified. There are midline sternotomy wires. IMPRESSION: Cardiomegaly with small left pleural effusion.
[2023-05-10] MEDS: POTASSIUM CHLORIDE ER 20 MEQ TAB.ER PO ONE ×2 (13:24→17:12)
--- NOTE | 2023-05-10 14:56 | P.PN ---
Subjective Progress Note Date: 05/07/23 82-year-old male who presents emergency department complaining of a fall. He was transferred from [facility] for NSTEMI and rhabdomyolysis. Workup at the outside hospital unremarkable for any obvious traumatic injury. He did have a troponin of 14 with normal EKG and no active chest pain. He also has rhabdomyolysis with a creatinine kinase greater than 8000. He was started on gentle fluid hydration and transferred here for evaluation by cardiology as his wine blender Dr. Bass is here. Unknown how long he was on the ground, did have a yarn finisher on 02 May so patient could have been on the ground since then. Endorses generalized bodyaches. States he had chest pain intermittently over the last few weeks. Last occurred prior to the fall. Lasted moments and self resolved. Currently has no chest pain and is not since being in the hospital. Has no other acute complaints at this time other than chronic abdominal pain as he does have a history of constipation. Presents for further evaluation at this time. Upper and was held at the outside facility over concern for the rhabdomyolysis and requested cardiology evaluation prior to initiating. Blood work completed in ED reveals a WBC of 17.2, hemoglobin of 13.4 and platelet count of 32.3, sodium of 135, potassium of 3.8, BUN/creatinine of 33/0.63 and blood glucose of 161, CK of 6591, troponin elevated at 9.550 Chest x-ray is negative for any acute process 05/06/2023 Patient is seen and evaluated in room at bedside; no specific complaints reported Patient has been evaluated by cardiology and was resumed on his home cardiac medications except Lipitor is on hold due to rhabdomyolysis. Patient is been started on heparin drip which will be maintained for 1 more day. Patient was also on started on Imdur yesterday and denies having any chest pain today. Blood pressure 104/57, heart rate 76, pulse ox 95% on room air. Repeat blood work reveals WBC 14.8, hemoglobin 0.6. Chemistry is not available. Echocardiogram reveals EF of 50 to 55%. RVSP 26. Moderate to severe right atrial dilatation. Trace mitral regurgitation. Mild to moderate aortic stenosis. 05/07/2023 Patient denies chest pain, shortness of breath. Noted that patient had 3 second pause on telemetry. Discussed option of cardiac cath and he is agreeable to more forward with this. BP 120/70, HR 72, PO 96% on 2L n/c. Echo reveals EF 50-55%, trace MR, mild to moderate . Patient evaluated by Cards and recommended to resume patient's home cardiac medications: Aspirin, atenolol, Plavix. Continue to hold Lipitor Continue patient on Imdur 30 mg daily Continue heparin drip Plan for cardiac catheterization on Monday with Dr. Tim MARTINEZ after midnight on Monday night Objective - Vital Signs Vital signs: Vital Signs Temp 98.6 F 05/06/23 23:30 Pulse 75 05/06/23 23:30 Resp 16 05/06/23 23:30 BP 127/66 05/06/23 23:30 Pulse Ox 97 05/06/23 23:30 FiO2 Intake & Output 05/06/23 05/06/23 05/07/23 06:59 18:59 06:59 Intake Total 2070.967 250 118 Output Total 800 Balance 1270.967 250 118 Intake: Intake, IV Titration 990.967 250 Amount Heparin Sod,Pork in 0.45% 90.967 250 NaCl 25,000 unit In 0.45 % NaCl 1 250ml.bag @ 9.52 UNITS/KG/HR 10.018 mls/ hr IV .Q24H [facility] Rx#: [id number] Sodium Chloride 0.9% 1, 900 000 ml @ 75 mls/hr IV . [id number] [facility] Rx#:[id number] Oral 1080 118 Output: Urine 800 Other: Voiding Method Indwelling Catheter Indwelling Catheter # Voids 1 - Exam Gen: This is a 82-year-old male in no acute distress VS: reviewed HEENT: Ecchymosis on the face, normocephalic. Pupils equal, round. Sclerae is anicteric. NECK: Supple. No JVD. LUNGS: Clear to auscultation. No wheezes or rhonchi. No intercostal retractions. HEART: Regular rate and rhythm. Systolic murmur. ABDOMEN: Soft No tenderness. EXTREMITIES: Mild bilateral lower pedal edema. No calf tenderness. NEUROLOGICAL: Patient is awake. - Labs CBC & Chem 7: 05/09/23 11:01 05/10/23 10:36 Labs: Abnormal Lab Results - Last 24 Hours (Table) 05/06/23 05/06/2324 Range/Units 01:41 01:41 07:29 WBC 14.7 H (3.8-10.6) k/uL RBC 3.64 L (4.30-5.90) m/uL Hgb 10.9 L (13.0-17.5) gm/dL Hct 32.9 L (39.0-53.0) % Neutrophils # 9.3 H (1.3-7.7) k/uL APTT 51.9 H (22.0-30.0) sec Sodium 136 L (137-145) mmol/L Chloride 110 H (98-107) mmol/L Carbon Dioxide 20 L (22-30) mmol/L BUN 25 H (9-20) mg/dL Creatinine 0.59 L (0.66-1.25) mg/dL Glucose 137 H (74-99) mg/dL Calcium 7.1 L (8.4-10.2) mg/dL Creatine Kinase 2175 H* (55-170) U/L 05/06/23 Range/Units 07:29 WBC 14.8 H (3.8-10.6) k/uL RBC 3.85 L (4.30-5.90) m/uL Hgb 11.6 L (13.0-17.5) gm/dL Hct 35.5 L (39.0-53.0) % Neutrophils # 9.3 H (1.3-7.7) k/uL APTT (22.0-30.0) sec Sodium (137-145) mmol/L Chloride (98-107) mmol/L Carbon Dioxide (22-30) mmol/L BUN (9-20) mg/dL Creatinine (0.66-1.25) mg/dL Glucose (74-99) mg/dL Calcium (8.4-10.2) mg/dL Creatine Kinase (55-170) U/L Assessment and Plan Assessment: 1. Elevated troponin; non-ST elevation ND -- Patient has been evaluated by cardiology; NSTEMI secondary to rhabdomyolysis, type II -Cardiology recommending to continue with IV heparin infusion for another 24 hours -Patient has been placed on Imdur 30 mg daily -- 2D echo ordered; further recommendations pending results 2. Rhabdomyolysis; remains on IV fluids in form of normal saline at a rate of 75 cc an hour; will monitor total CPK levels and make further recommendations 3. Leukocytosis; likely reactive; UA and chest x-ray is unremarkable; we will monitor CBC with plans to initiate sepsis workup if white blood count remains elevated 4. Mild renal injury; IV fluid hydration as indicated above; monitor strict ADELSO's, daily weights, renal function electrolytes; avoid nephrotoxins and hypotension 5. Hypertension; continue with home dose of metoprolol, enalapril 2.5 mg daily; cardiology recommending to add Imdur 30 mg daily 6. Hyperlipidemia; patient takes Lipitor at home which has been placed on hold due to rhabdomyolysis 7. Gastroesophageal reflux disease DVT prophylaxis; SCDs/IV heparin CODE STATUS; full code
[2023-05-10] MEDS: FUROSEMIDE 10 MG/ML 2 ML VIAL IV ONE (17:11)
[2023-05-10] MEDS: CALCIUM CARBONATE 500 MG CHEWABLE PO PRN (17:35)
--- NOTE | 2023-05-10 21:17 | P.PN ---
Subjective Progress Note Date: 05/10/23 Patient is evaluated today on the stepdown unit. He currently reports shortness of breath, he is maintained on 3 L of oxygen via nasal cannula. Chest x-ray this morning shows cardiomegaly and mild pulmonary vascular congestion. His echocardiac comes back with an EF of 50 to 55% with a moderate aortic stenosis. Creatinine is trending downwards and 370 renal function is normalizing. He does report feeling sore mainly over the left rib cage with aches all over secondary to fall. Patient is scheduled to undergo cardiac catheterization tomorrow. 05/09/2023 Patient is evaluated resting in bed he has minimal confusion. He does continue to report shortness of breath however states that it is improved from yesterday. He has been transition to oral Lasix daily. Sodium was 135, potassium 3.4. He underwent cardiac catheterization revealing severe three-vessel coronary artery disease with patent ASHBY to LAD, venous graft to right coronary artery, patent radial artery graft to the OM branch and patent venous graft to the diagonal with no evidence of stenosis involving the previously stented segment. Patient will be managed medically with risk factor modification. Patient will have an event monitor placed prior to discharge to monitor for bradycardia as an etiology for the syncope this is a recommendation from cardiology. Patient is evaluated today sitting up in the chair. He reports shortness of breath and chest tightness chest x-ray was taken showing a small left pleural effusion. He is given a extra dose of IV Lasix 20 mg otherwise he has been transition to 20 mg oral Lasix daily by cardiology. He remains on 2 L of oxygen via nasal cannula does not wear any oxygen at home. Review ofSystems Constitutional: Denied any fatigue denied any fever. Cardio vascular: denied any chest pain, palpitations Gastrointestinal: denied any nausea, vomiting, diarrhea Pulmonary: Reports shortness of breath cough Neurologic denied any new focal deficits All inpatient medications were reviewed and appropriate changes in these medications as dictated in the interval history and assessment and plan. PHYSICAL EXAMINATION: GENERAL: The patient is alert and oriented x3, not in any acute distress. Well developed, well nourished. HEENT: Pupils are round and equally reacting to light. EOMI. No scleral icterus. No conjunctival pallor. Normocephalic, atraumatic. No pharyngeal erythema. No thyromegaly. CARDIOVASCULAR: S1 and S2 present. No murmurs, rubs, or gallops. PULMONARY: Diminished lung sounds ABDOMEN: Soft, nontender, nondistended, normoactive bowel sounds. No palpable organomegaly. MUSCULOSKELETAL: No joint swelling or deformity. EXTREMITIES: No cyanosis, clubbing, or pedal edema. NEUROLOGICAL: Gross neurological examination did not reveal any focal deficits. Generalized weakness. SKIN: No rashes. Assessment and plan Rhabdomyolysis secondary to fall Leukocytosis likely reactive to the fall Troponin elevation and non-ST elevation myocardial infarction this is likely due to the rhabdomyolysis considered a type II OK History of coronary artery disease with prior CABG and stenting cardiac catheterization reveals patent grafts with underlying [place] coronary artery disease severe triple-vessel Hypertension Moderate aortic stenosis Gastroesophageal reflux disease Osteoarthritis Former smoker GI prophylaxis DVT prophylaxis Subcu heparin Full code Physical therapy recommending subacute rehab on discharge. Given a one time dose of IV lasix, remains on oral lasix daily. Repeat labs in the AM. The impression and plan of care has been dictated by Leah Cadena, Nurse Practitioner as directed. Dr. Calvin MD I have performed a history and physical examination and medical decision making of this patient, discussed the same with the dictator, and agree with the dictators assessment and plan as written, documented as a scribe. Based on total visit time, I have performed more than 50% of this visit. Objective - Vital Signs Vital signs: Vital Signs Temp 98.1 F 05/10/23 16:00 Pulse 83 05/10/23 16:00 Resp 22 05/10/23 16:00 BP 135/77 05/10/23 16:00 Pulse Ox 98 05/10/23 16:00 FiO2 Intake & Output 05/10/23 05/10/23 05/11/23 06:59 18:59 06:59 Intake Total 360 Output Total 300 550 Balance -300 -190 Intake: Oral 360 Output: Urine 300 550 Other: Voiding Method External Catheter External Catheter - Labs CBC & Chem 7: 05/09/23 11:01 05/10/23 10:36 Labs: Abnormal Lab Results - Last 24 Hours (Table) 05/10/23 Range/Units 10:36 Sodium 135 L (137-145) mmol/L Potassium 3.3 L (3.5-5.1) mmol/L Creatinine 0.56 L (0.66-1.25) mg/dL Glucose 214 H (74-99) mg/dL Assessment and Plan Time with Patient: Less than 30
[2023-05-11] MEDS: lisinopriL 5 MG TAB PO SCH (11:11)
[2023-05-11 11:19] LABS: Basophils # (A) 0.1 k/uL (0-0.2); Basophils % (A) 0 %; Eosinophils # (A) 0.4 k/uL (0-0.7); Eosinophils % (A) 3 %; HCT 33.7 % (39.0-53.0); HGB 11.5 gm/dL (13.0-17.5); Lymphocytes # (A) 3.2 k/uL (1.0-4.8); Lymphocytes % (A) 21 %; MCH 30.2 pg (25.0-35.0); MCHC 34.3 g/dL (31.0-37.0); Mean Platelet Volume 8.6; Monocytes % (A) 7 %; Neutrophils # (A) 10.5 k/uL (1.3-7.7); Neutrophils % (A) 68 %; Platelet Count 358 k/uL (150-450); RBC 3.82 m/uL (4.30-5.90); RDW 13.6 % (11.5-15.5); WBC 15.3 k/uL (3.8-10.6)
[2023-05-11 11:35] LABS: African American GFR (CKD) >90 (>60 ml/min/1.73 sqM); Anion Gap 6 mmol/L; Blood Urea Nitrogen 14 mg/dL (9-20); Calcium 8.7 mg/dL (8.4-10.2); Carbon Dioxide 27 mmol/L (22-30); Chloride 99 mmol/L (98-107); Glucose 136 mg/dL (74-99); Magnesium 1.6 mg/dL (1.6-2.3); Non-African American GFR(CKD) >90 (>60 ml/min/1.73 sqM); Potassium 3.6 mmol/L (3.5-5.1); Sodium 132 mmol/L (137-145)
[2023-05-11] MEDS ORDERED: Potassium Replacement Protocol 1 EACH MISC MISCELLANE PRN (12:22)
[2023-05-11] MEDS ORDERED: Magnesium Replacement Protocol 1 EACH MISC MISCELLANE PRN (12:22)
--- NOTE | 2023-05-11 12:38 | P.DS ---
Providers Date of admission: 05/05/23 02:53 Attending physician: Destin Arnold Primary care physician: [facility] Course: Final Diagnosis Rhabdomyolysis secondary to fall Leukocytosis likely reactive to the fall Troponin elevation and non-ST elevation myocardial infarction this is likely due to the rhabdomyolysis considered a type II SD History of coronary artery disease with prior CABG and stenting cardiac catheterization reveals patent grafts with underlying [place] coronary artery disease severe triple-vessel Hypertension Moderate aortic stenosis Gastroesophageal reflux disease Osteoarthritis Former smoker GI prophylaxis DVT prophylaxis Subcu heparin Full code Discharge Disposition Patient is stable for discharge to subacute rehab with overall guarded prognosis. Patient to keep event monitor on for 2 weeks total and follow up with Dr. Dmuont his tool clerk on discharge in 2 weeks. Patient to continue on oral lasix daily. Recommending to apply compression stockings to lower extremities and elevate while sitting. Repeat labs in 2 to 3 days. Needs to follow up with his PCP in 1 to 2 days, Dr. Swanson. Hospital Course This is an 82-year-old male who presents emergency department complaining of a fall. He was transferred from [facility] for NSTEMI and rhabdomyolysis. Workup at the outside hospital unremarkable for any obvious traumatic injury. He did have a troponin of 14 with normal EKG and no active chest pain. He also has rhabdomyolysis with a creatinine kinase greater than 8000. He was started on gentle fluid hydration and transferred here for evaluation by cardiology as his tool clerk Dr. Dumont is here. Unknown how long he was on the ground, did have a machined parts metal sprayer on 02 May so patient could have been on the ground since then. Patient did state he has had intermittent chest pain over the last few weeks at home. Had some chest pain prior to his fall with spontaneous resolution. Blood work completed in ED reveals a WBC of 17.2, hemoglobin of 13.4 and platelet count of 32.3, sodium of 135, potassium of 3.8, BUN/creatinine of 33/0.63 and blood glucose of 161, CK of 6591, troponin elevated at 9.550. Chest x-ray is negative for any acute process. Admitted to this hospital under medicine with consultation placed to cardiology. He was taken to the cheesemaking laborer on 05/09/2023 with findings of [place] severe triple vessel disease with patient bypass grafts. He will be medically managed. He had an event monitor placed here prior to discharge to rule out bradycardia or arrythmia as cause of the syncopal event. He did endorse generalized body aches which have improved. His most recent CK level is down to 373. His renal function is stable. He is denying shortness of breath today, no chest pain, no nausea vomiting or diarrhea. He has been significantly weak, was evaluated by physical therapy and recommending subacute rehab. He has been accepted to transfer to [facility]. Please see medication reconciliation for a list of current medications Thank you for allowing us to participate in the care of this patient. Physical therapy recommending subacute rehab on discharge. Given a one time dose of IV lasix, remains on oral lasix daily. Repeat labs in the AM. The impression and plan of care has been dictated by Leah Cadena, Nurse Practitioner as directed. Dr. Calvin MD I have performed a history and physical examination and medical decision making of this patient, discussed the same with the dictator, and agree with the dictators assessment and plan as written, documented as a scribe. Based on total visit time, I have performed more than 50% of this visit. Patient Condition at Discharge: Fair Plan - Discharge Summary Discharge Rx Participant: No New Discharge Prescriptions: New Ipratropium-Albuterol Nebulize [Duoneb 0.5 mg-3 mg/3 ml Soln] 3 ml INHALATION RT-QID PRN each PRN Reason: Shortness Of Breath Or Wheezing Furosemide [Lasix] 20 mg PO DAILY tab Clopidogrel [Plavix] 75 mg PO DAILY tab Calcium Carbonate [Tums] 500 mg PO TID PRN tab PRN Reason: Heartburn Heparin Sodium,Porcine (1 ml) [Heparin Sodium] 5,000 unit SQ Q8HR each Atorvastatin [Lipitor] 80 mg PO HS #0 tab QUEtiapine [SEROquel] 12.5 mg PO HS PRN tab PRN Reason: Agitation lisinopriL [Zestril] 5 mg PO DAILY tab Continue atenoloL 25 mg PO DAILY Nitroglycerin Sl Tabs [Nitrostat] 0.4 mg SUBLINGUAL Q5M PRN #30 tab PRN Reason: Chest Pain Vit C/E/Zn/Coppr/Lutein/Zeaxan [Preservision Areds 2 Softgel] 1 cap PO DAILY Enzalutamide [Xtandi] 160 mg PO DAILY Aspirin EC [Ecotrin Low Dose] 81 mg PO HS Latanoprost/Pf [Latanoprost 0.005% Eye Drop] 1 drop BOTH EYES HS Atorvastatin [Lipitor] 80 mg PO HS 30 Days #30 tab Discontinued Enalapril Maleate 2.5 mg PO DAILY Furosemide [Lasix] 10 mg PO DAILY Discharge Medication List atenoloL 25 mg PO DAILY 01/04/14 [History] Latanoprost/Pf [Latanoprost 0.005% Eye Drop] 1 drop BOTH EYES HS 09/29/20 [History] Atorvastatin [Lipitor] 80 mg PO HS 30 Days #30 tab 10/01/20 [Rx] Nitroglycerin Sl Tabs [Nitrostat] 0.4 mg SUBLINGUAL Q5M PRN #30 tab 10/01/20 [Rx] Aspirin EC [Ecotrin Low Dose] 81 mg PO HS 05/05/23 [History] Enzalutamide [Xtandi] 160 mg PO DAILY 05/05/23 [History] Vit C/E/Zn/Coppr/Lutein/Zeaxan [Preservision Areds 2 Softgel] 1 cap PO DAILY 05/05/23 [History] Atorvastatin [Lipitor] 80 mg PO HS #0 tab 05/11/23 [Rx] Calcium Carbonate [Tums] 500 mg PO TID PRN tab 05/11/23 [Rx] Clopidogrel [Plavix] 75 mg PO DAILY tab 05/11/23 [Rx] Furosemide [Lasix] 20 mg PO DAILY tab 05/11/23 [Rx] Heparin Sodium,Porcine (1 ml) [Heparin Sodium] 5,000 unit SQ Q8HR each 05/11/23 [Rx] Ipratropium-Albuterol Nebulize [Duoneb 0.5 mg-3 mg/3 ml Soln] 3 ml INHALATION RT-QID PRN each 05/11/23 [Rx] QUEtiapine [SEROquel] 12.5 mg PO HS PRN tab 05/11/23 [Rx] lisinopriL [Zestril] 5 mg PO DAILY tab 05/11/23 [Rx] Follow up Appointment(s)/Referral(s): Sky Lara MD [Primary Care Provider] - 1-2 days Darren Dumont MD [STAFF PHYSICIAN] - 1 Week Ambulatory/Diagnostic Orders: Basic Metabolic Panel [LAB.AMB] Time Frame: 3 Days, Location: None Selected Complete Blood Count w/diff [LAB.AMB] Time Frame: 3 Days, Location: None Selected Activity/Diet/Wound Care/Special Instructions: continue on oral lasix daily recommend to monitor weight and notify provider of more than 5 to 7 lbs in a week Recommend to repeat labs in 2 to 3 days Continue with incentive spirometer 10 x an hour while awake. Continue with event monitor and follow up with your tool clerk Dr. Dumont in 2 weeks Discharge Disposition: TRANSFER TO SNF/ECF
[2023-05-11] MEDS: POTASSIUM CHLORIDE ER 20 MEQ TAB.ER PO ONE (13:12)
[2023-05-11] MEDS: MAGNESIUM SULFATE-D5W PMX 1 GM in DEXTROSE/WATER 1 100ML.BAG IVPB SCH (13:12)
[2023-05-11 14:53] VITALS: BMI 37.0
[2023-05-11 15:57] VITALS: BP 135/77; PULSE 90; RESP 22; TEMP 98.2
--- NOTE | 2023-05-23 09:21 | CDI ---
Documentation Clarification Form Date: 05/08/2023 02:09:00 PM From: Marcelle Chávez RN, CCDS Email: [email or web address] Admit Date: 05/05/2023 02:53:00 AM Patient Name: Aquilino Pratt Visit Number: [id number] Discharge Date: 05/11/2023 04:04:00 PM ATTENTION: The Clinical Documentation Specialists (CDI) and [facility] Coding Staff appreciate your assistance in clarifying documentation. Please respond to the clarification below the line at the bottom and electronically sign. The CDI & [facility] Coding staff will review the response and follow-up if needed. Please note: Queries are made part of the Legal Health Record. If you have any questions, please contact the author of this message via ITS. Dr. Judy Conde Rhabdomyolysis is documented in the ED, H&P and progress notes. Additional clarification regarding the type of rhabdomyolysis is requested. 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 Presents after a fall. Transfer from outside hospital for NSTEMI and rhabdomyolysis. Clinical Indicators: 05/05 ED: "Unknown how long he was on the ground. Fall, NSTEMI, Rhabdomyolysis, Constipation." 05/05 Cardiology consult: "Rhabdomyolysis. Non-ST elevated myocardial infarction secondary to rhabdomyolysis, type II." 05/05 H&P: "CC: fall/rhabdomyolysis. Rhabdomyolysis; remains on IV fluids." 05/05-05/08 CK: [id number] 05/05 troponin: 13.600-12.100-9.550 Treatment: Monitor CPK levels; Hold Lipitor; IV 0.9 NS 1L bolus on 05/05 then 130mL/hr 05/05-05/06 then 75mL/hr 05/05-05/07 Please clarify the type of rhabdomyolysis, if known: [ ] Traumatic rhabdomyolysis due to fall [ ###] Traumatic rhabdomyolysis due to prolonged immobility [ ] Non traumatic rhabdomyolysis due to medication (please specify) [ ] Non traumatic rhabdomyolysis due to infection (please specify) [ ] Other, please specify [ ] Unable to Determine MTDD
--- NOTE | 2023-05-25 04:47 | EM ---
EVENT MONITOR STUDY: A 14-day event monitor. INDICATION: Syncope. Underlying rhythm is sinus. The patient had a run of nonsustained VT. There were frequent PVCs. There were no episodes of sustained ventricular or supraventricular tachyarrhythmias. There were no episodes of more than 3-second pauses. NUSRAT / ALEKSANDRA: [id number] /
== END 2023-05-11 16:04 | DRG 564 ==
LOC: EC 00:55 → 3SCARD 02:53
PROVIDERS: ADMIT Hospitalist; ATTEND Hospitalist
PROC: 4A023N7 Measurement of Cardiac Sampling and Pressure, Left Heart, Percutaneous Approach (ICD-10-PCS; principal; 2023-05-09 07:30)
PROC: B2111ZZ Fluoroscopy of Multiple Coronary Arteries using Low Osmolar Contrast (ICD-10-PCS; principal; 2023-05-09 07:30)
PROC: B2181ZZ Fluoroscopy of Left Internal Mammary Bypass Graft using Low Osmolar Contrast (ICD-10-PCS; principal; 2023-05-09 07:30)
PROC: B2131ZZ Fluoroscopy of Multiple Coronary Artery Bypass Grafts using Low Osmolar Contrast (ICD-10-PCS; principal; 2023-05-09 07:30)
PROC: B41F1ZZ Fluoroscopy of Right Lower Extremity Arteries using Low Osmolar Contrast (ICD-10-PCS; principal; 2023-05-09 07:30)
DX: T79.6XXA Traumatic ischemia of muscle, initial encounter (principal); I21.A1 Myocardial infarction type 2; E87.1 Hypo-osmolality and hyponatremia; C61 Malignant neoplasm of prostate; I11.0 Hypertensive heart disease with heart failure; I08.3 Combined rheumatic disorders of mitral, aortic and tricuspid valves; I25.10 Atherosclerotic heart disease of native coronary artery without angina pectoris; M19.90 Unspecified osteoarthritis, unspecified site; K59.00 Constipation, unspecified; K21.9 Gastro-esophageal reflux disease without esophagitis; I25.2 Old myocardial infarction; G89.29 Other chronic pain; E78.5 Hyperlipidemia, unspecified; R10.9 Unspecified abdominal pain; R74.01 Elevation of levels of liver transaminase levels; Z79.82 Long term (current) use of aspirin; Z79.899 Other long term (current) drug therapy; Z79.1 Long term (current) use of non-steroidal anti-inflammatories (NSAID); Z95.1 Presence of aortocoronary bypass graft; Z95.5 Presence of coronary angioplasty implant and graft; Z85.6 Personal history of leukemia; Z87.891 Personal history of nicotine dependence; W19.XXXA Unspecified fall, initial encounter; Z88.0 Allergy status to penicillin
CPT/HCPCS: 36415; 71045; 71046; 80048; 80053; 81001; 82550; 83605; 83735; 83880; 84484; 85025; 85610; 85730; 93005; 93270; 93306; 93459; 94760; 96365; 96366; 96375; 99291